=== PATIENT | female | born 1980 | race Caucasian/White ===

== ENCOUNTER → 2017-07-10 | Outpatient (CLI) | payer BC ==
--- NOTE | 2017-07-10 12:30 | CT ---
EXAMINATION TYPE: CT iac w con DATE OF EXAM: 07/10/2017 COMPARISON: NONE HISTORY: Rt ear fullness CT DLP: 229 mGycm Automated exposure control for dose reduction was used. CONTRAST: CT scan of the IACs is performed with IV Contrast, patient injected with 100 mL of Isovue 300. FINDINGS: The external auditory canals are patent bilaterally. Mastoid air cells show no evidence of abnormal opacification bilaterally. The middle ear ossicles are symmetric and unremarkable. There is no evidence of suspicious surrounding soft tissue density to suggest cholesteatoma. The scutum is preserved bilaterally. The cochlea and the semicircular canals are symmetric and unremarkable. Ves tibular aqueduct and internal carotid canal appear unremarkable. Temporomandibular joints are mainta ined bilaterally. IMPRESSION: No significant abnormality seen to account for patient's symptoms.
== END | disposition home or self-care (01) ==
LOC: RADCTMAIN 10:55
PROVIDERS: ATTEND Otolaryngology
DX: H93.11 Tinnitus, right ear (principal); H92.01 Otalgia, right ear
CPT/HCPCS: 70481; Q9967

== ENCOUNTER → 2018-08-02 | Outpatient (CLI) | payer BC ==
--- NOTE | 2018-08-02 14:09 | MM ---
Reason for exam: screening (asymptomatic). Baseline mammogram. History: Patient is nulliparous. Taking hormonal contraceptives for 21 years beginning at age 17. Physical Findings: Nurse did not find any significant physical abnormalities on exam. MG 3D Screening Mammo W/Cad Bilateral CC and MLO view(s) were taken. The breast tissue is heterogeneously dense. This may lower the sensitivity of mammography. There is no discrete abnormality. These results were verbally communicated with the patient and result sheet given to the patient on 08/02/18. ASSESSMENT: Negative, BI-RAD 1 RECOMMENDATION: Routine screening mammogram of both breasts at age 42.
== END | disposition home or self-care (01) ==
LOC: RADMAMWWP 12:58
PROVIDERS: ATTEND Obstetrics & Gynecology
DX: Z12.31 Encounter for screening mammogram for malignant neoplasm of breast (principal)
CPT/HCPCS: 77063; 77067

== ENCOUNTER → 2018-10-21 | Outpatient (CLI) | payer BC | END | disposition home or self-care (01) | LOC: LABWHC1 07:06 | PROVIDERS: ATTEND Nurse Practitioner Family | DX: J30.89 Other allergic rhinitis (principal) | CPT/HCPCS: 36415 ==

== ENCOUNTER 2020-01-08 11:50 | Day surgery (SDC) | payer BC ==
[2020-01-06 15:18] VITALS: BMI 24.2
[~2020-01-08 11:50] MED LIST: LACTATED RINGERS 1,000 ML IV SCH; LIDOCAINE 1% (10MG/ML) FOR IV START INTRADERMA PRN
[2020-01-08 12:59] VITALS: TEMP 98.7
[2020-01-08] MEDS ORDERED: ONDANSETRON 4 MG/2 ML VIAL IVP ONE ×2 (13:05)
[2020-01-08] MEDS ORDERED: ONDANSETRON 4 MG/2 ML VIAL ONE (13:08)
[2020-01-08] MEDS ORDERED: LIDOCAINE 1% INJ 10MG/ML (20 ML MDV) ONE (13:23)
[2020-01-08] MEDS ORDERED: PROPOFOL 10 MG/ML 20 ML VIAL IV ONE (13:23)
--- NOTE | 2020-01-08 14:05 | P.PCN ---
Date of Procedure: 01/08/20 Description of Procedure: BRIEF HISTORY: Patient is a 39-year-old female presenting for outpatient colonoscopy for evaluation of diarrhea and altered bowel function. The patient was seen in the GI clinic where she was complaining of diarrhea over the past 1 year. She reported progressive symptoms. She does have over 5 bowel movements per day. She reported associated abdominal cramping. PROCEDURE PERFORMED: Colonoscopy with biopsy. PREOPERATIVE DIAGNOSIS: Diarrhea, change in bowel habits. ESTIMATED BLOOD LOSS: Minimal. IV sedation per Anesthesia. PROCEDURE: After informed consent was obtained, the patient, was brought into the endoscopy unit. IV sedation was administered by Anesthesia under continuous monitoring. Digital rectal examination was normal. Initially the Olympus CF-190 flexible video colonoscope was then inserted in the rectum, gradually advanced into the cecum without any difficulty. Careful examination was performed as the scope was gradually being withdrawn. Ileocecal valve and the appendiceal orifice were visualized and appeared normal. Prep was excellent. Mucosa of the cecum, ascending colon, transverse colon, descending colon, sigmoid colon, and rectum appeared normal. The terminal ileum was intubated and appeared normal with biopsies taken. Biopsies were also taken of the right and left colon in the setting of altered bowel function Retroflexion was performed in the rectum and no lesions were seen, low-grade internal hemorrhoids seen. The patient tolerated the procedure well. IMPRESSION: Normal-appearing colon from rectum to cecum and normal-appearing terminal ileum with random biopsies taken of the right colon, left colon and terminal ileum given diarrhea and altered bowel function. Internal hemorrhoids.. RECOMMENDATIONS: Findings of this examination were discussed with the patient and her family. Okay to resume diet. Okay to resume medications. Follow-up in GI clinic in 1-2 weeks for results of biopsies.
[2020-01-08 14:40] VITALS: BP 101/71; PULSE 77; RESP 18
== END 2020-01-08 14:43 | disposition home or self-care (01) ==
LOC: ORWHC2ENDO 11:50
PROVIDERS: ATTEND Internal Medicine
DX: K52.89 Other specified noninfective gastroenteritis and colitis (principal); K64.8 Other hemorrhoids; Z79.899 Other long term (current) drug therapy; J45.909 Unspecified asthma, uncomplicated
CPT/HCPCS: 81025; 88305; 45380; J2405; J2001; J2704

== ENCOUNTER → 2020-01-19 | Outpatient (CLI) | payer BC ==
[2020-01-19 09:22] LABS: Basophils # (A) 0.1 k/uL (0-0.2); Basophils % (A) 1 %; Eosinophils # (A) 0.1 k/uL (0-0.7); Eosinophils % (A) 1 %; HCT 38.3 % (34.0-46.0); HGB 12.8 gm/dL (11.4-16.0); Lymphocytes # (A) 2.5 k/uL (1.0-4.8); Lymphocytes % (A) 25 %; MCH 29.7 pg (25.0-35.0); MCHC 33.3 g/dL (31.0-37.0); MCV 88.9 fL (80.0-100.0); Mean Platelet Volume 6.9; Monocytes # (A) 0.4 k/uL (0-1.0); Monocytes % (A) 4 %; Neutrophils # (A) 6.7 k/uL (1.3-7.7); Neutrophils % (A) 68 %; Platelet Count 388 k/uL (150-450); RBC 4.31 m/uL (3.80-5.40); RDW 12.4 % (11.5-15.5); WBC 9.8 k/uL (3.8-10.6)
[2020-01-19 15:17] LABS: ALT 25 U/L (8-44); AST 19 U/L (13-35); African American GFR (CKD) 109.2 (60.0-200.0); Albumin/Globulin Ratio 1.72 (1.60-3.17); Alkaline Phosphatase 84 U/L (41-126); C Reactive Protein <0.4 mg/dL (0.0-0.8); Calcium 9.5 mg/dL (8.7-10.3); Carbon Dioxide 26.4 mmol/L (21.6-31.8); Chloride 102 mmol/L (96-109); Globulin 2.5 g/dL (1.6-3.3); Glucose 83 mg/dL (70-110); Non-African American GFR(CKD) 94.2 (60.0-200.0); Potassium 4.1 mmol/L (3.5-5.5); Sodium 138 mmol/L (135-145); Total Bilirubin 0.3 mg/dL (0.3-1.2); Total Protein 6.8 g/dL (6.2-8.2)
[2020-01-19 16:34] LABS: Erythrocyte Sedimentation Rate 24 mm/Hr (0-20)
[2020-01-20 17:40] LABS: Gliadin AB IgA, Deaminated NEGATIVE (NEGATIVE); Gliadin AB IgA, Unit 0.3 U/mL; Gliadin AB IgG, Deaminated NEGATIVE (NEGATIVE)
== END | disposition home or self-care (01) ==
LOC: LABWHC1 07:15
PROVIDERS: ATTEND Internal Medicine
DX: R19.7 Diarrhea, unspecified (principal)
CPT/HCPCS: 36415; 80053; 83516; 85025; 85652; 86140

== ENCOUNTER 2021-09-25 18:34 | Inpatient (IN) | payer BC ==
--- NOTE | 2021-09-25 20:09 | XR ---
EXAMINATION TYPE: XR KUB DATE OF EXAM: 09/25/2021 COMPARISON: NONE HISTORY: Abdominal pain TECHNIQUE: 2 views upright FINDINGS: Bowel gas pattern is normal. No sign of intestinal obstruction or pneumoperitoneum. Fecal p attern is normal. Lung bases are clear. No pathologic calcifications over the kidneys. IMPRESSION: Nonacute abdomen.
[2021-09-25 20:16] LABS: Appearance,Urine Cloudy (Clear); Bacteria,Urine Many /hpf; Bilirubin,Urine Negative (Negative); Blood,Urine Moderate (Negative); Color,Urine Yellow; Glucose,Urine (UA) Negative (Negative); Ketones,Urine 4+ (Negative); Leukocyte Esterase,Urine Negative (Negative); Mucus,Urine Rare /hpf; Nitrite,Urine Negative (Negative); PH, Urine 5.5 (5.0-8.0); Protein,Urine Negative (Negative); RBC,Urine 7 /hpf (0-5); Specific Gravity,Urine 1.009 (1.001-1.035); Squamous Epithelial Cell,Urine 5 /hpf (0-4); Urobilinogen,Urine <2.0 mg/dL (<2.0); WBC,Urine 2 /hpf (0-5)
[2021-09-25] MEDS ORDERED: SODIUM CHLORIDE 0.9% 1,000 ML IV STA (20:35)
--- NOTE | 2021-09-25 20:36 | ED ---
General Adult HPI - General Chief complaint: Abdominal Pain Stated complaint: Abd pain Time Seen by Provider: 09/25/21 20:34 Source: patient Mode of arrival: ambulatory Limitations: no limitations - History of Present Illness Initial comments: Patient presents to the ED with her mother for evaluation. Patient states that she has had watery diarrhea for the past 3 days and diffuse, crampy lower abdominal pain for the past 2 days. Patient states that her diarrhea has improved this evening, but she continues to have lower abdominal pain. Patient states that she was recently on 2 courses of antibiotics (Augmentin and cefuroxime). Patient denies known sick contact or recent travel abroad. Patient denies trauma or injury, fever or chills, headache, chest pain or pressure, dyspnea, cough or cold symptoms, palpitations, dizziness, upper abdominal pain, back or flank pain, nausea or vomiting, bloody or melanotic stool, dysuria/hematuria/urinary frequency/urinary symptoms, vaginal bleeding or discharge, or any other symptoms or complaints. Patient states that her LMP was 2 weeks ago. - Related Data Home Medications Medication Instructions Recorded Confirmed Control (Unknown Dose) 1 tab PO HS 01/06/20 01/06/20 Budesonide [Pulmicort Flexhaler] 2 puff INHALATION BID 01/06/20 01/06/20 Dicyclomine [Bentyl] 10 mg PO TID 01/06/20 01/06/20 Montelukast [Singulair] 10 mg PO HS 01/06/20 01/06/20 Allergies Allergy/AdvReac Type Severity Reaction Status Date / Time No Known Allergies Allergy Verified 09/25/21 19:38 Review of Systems ROS Statement: Those systems with pertinent positive or pertinent negative responses have been documented in the HPI. ROS Other: All systems not noted in ROS Statement are negative. Past Medical History Past Medical History: Asthma Additional Past Medical History / Comment(s): problems with diarrhea History of Any Multi-Drug Resistant Organisms: None Reported Additional Past Surgical History / Comment(s): Lasik, wisdom teeth Past Anesthesia/Blood Transfusion Reactions: No Reported Reaction Past Psychological History: No Psychological Hx Reported Smoking Status: Never smoker Past Alcohol Use History: None Reported Past Drug Use History: None Reported - Past Family History Mother Family Medical History: No Reported History Father Family Medical History: Cancer Additional Family Medical History / Comment(s): Kidney, Prostate General Exam Limitations: no limitations General appearance: alert, in no apparent distress Head exam: Present: atraumatic, normocephalic Eye exam: Present: normal appearance, EOMI ENT exam: Present: mucous membranes moist Respiratory exam: Present: normal lung sounds bilaterally. Absent: respiratory distress, wheezes, rales, rhonchi, stridor Cardiovascular Exam: Present: normal rhythm, tachycardia, normal heart sounds, other (Normal radial pulses bilaterally) GI/Abdominal exam: Present: soft, hyperactive bowel sounds, other (Moderate diffuse lower abdominal tenderness). Absent: distended, guarding, rebound Back exam: Absent: CVA tenderness (R), CVA tenderness (L) Neurological exam: Present: alert, oriented X3. Absent: motor sensory deficit Psychiatric exam: Present: normal affect, normal mood Skin exam: Present: warm, dry, intact, normal color Course Vital Signs 09/25/21 09/25/21 09/25/21 19:36 22:34 22:39 Temperature 98.2 F Pulse Rate 111 H 115 H 99 Respiratory 20 20 Rate Blood Pressure 121/67 120/69 O2 Sat by Pulse 99 95 Oximetry - Reevaluation(s) Reevaluation #1: 09/26/21 00:22 Case, H&P and test results/CT findings were discussed with Dr. Stone (general surgery). He recommends hospital admission and IV antibiotic treatment for possible acute appendicitis. He states that he will examine/evaluate the patient in the morning. He has no further recommendations at this time. 09/26/21 00:33 Patient states that her pain/symptoms have improved somewhat with ED treatment. Patient denies development of any new symptoms while in the ED. Patient's abdomen remains soft and without rebound or guarding on examination. Patient has not been able to provide a stool specimen thus far. Patient and mother are aware the patient's test results and my discussion with Dr. Stone as above. Patient agrees with hospital admission at this time. Medical Decision Making - Medical Decision Making Patient reports having diarrhea and diffuse, crampy lower abdominal pain for the past couple of days (after completing a couple of courses of antibiotics. I suspect that the patient's symptoms are likely secondary to an infectious diarrhea, but given the patient's leukocytosis and CT findings, will admit the patient to the hospital for IV antibiotic treatment and surgical consultation out of concern for possible acute appendicitis. Dr. Stone was contacted/consulted from the ED, and he has accepted hospital admission. - Lab Data Result diagrams: 09/25/21 22:23 09/25/21 22:23 Lab Results 09/25/21 09/25/21 09/25/21 Range/Units 19:58 22:23 22:23 WBC 17.1 H (3.8-10.6) k/uL RBC 4.26 (3.80-5.40) m/uL Hgb 12.7 (11.4-16.0) gm/dL Hct 37.1 (34.0-46.0) % MCV 87.1 (80.0-100.0) fL MCH 29.8 (25.0-35.0) pg MCHC 34.3 (31.0-37.0) g/dL RDW 11.9 (11.5-15.5) % Plt Count 389 (150-450) k/uL MPV 7.0 Neutrophils % 88 % Lymphocytes % 6 % Monocytes % 4 % Eosinophils % 1 % Basophils % 0 % Neutrophils # 15.0 H (1.3-7.7) k/uL Lymphocytes # 1.1 (1.0-4.8) k/uL Monocytes # 0.7 (0-1.0) k/uL Eosinophils # 0.1 (0-0.7) k/uL Basophils # 0.1 (0-0.2) k/uL Sodium 129 L (137-145) mmol/L Potassium 3.5 (3.5-5.1) mmol/L Chloride 95 L (98-107) mmol/L Carbon Dioxide 20 L (22-30) mmol/L Anion Gap 14 mmol/L BUN 4 L (7-17) mg/dL Creatinine 0.72 (0.52-1.04) mg/dL Est GFR (CKD-EPI)AfAm >90 (>60 ml/min/1.73 sqM) Est GFR (CKD-EPI)NonAf >90 (>60 ml/min/1.73 sqM) Glucose 99 (74-99) mg/dL Calcium 8.9 (8.4-10.2) mg/dL Total Bilirubin 0.9 (0.2-1.3) mg/dL AST 30 (14-36) U/L ALT 25 (4-34) U/L Alkaline Phosphatase 109 (38-126) U/L Total Protein 7.6 (6.3-8.2) g/dL Albumin 4.6 (3.5-5.0) g/dL Lipase 20 L (23-300) U/L HCG, Qual Not Detected Urine Color Yellow Urine Appearance Cloudy H (Clear) Urine pH 5.5 (5.0-8.0) Ur Specific [place] 1.009 (1.001-1.035) Urine Protein Negative (Negative) Urine Glucose (UA) Negative (Negative) Urine Ketones 4+ H (Negative) Urine Blood Moderate H (Negative) Urine Nitrite Negative (Negative) Urine Bilirubin Negative (Negative) Urine Urobilinogen <2.0 (<2.0) mg/dL Ur Leukocyte Esterase Negative (Negative) Urine RBC 7 H (0-5) /hpf Urine WBC 2 (0-5) /hpf Ur Squamous Epith Cells 5 H (0-4) /hpf Urine Bacteria Many H (None) /hpf Urine Mucus Rare H (None) /hpf - Radiology Data KUB: Nonacute abdomen. CT abdomen/pelvis with IV contrast: There is appendicolith. Tip of the appendix is slightly thickened. No significant inflammatory reaction in the adjacent fat. Mild appendicitis however not excluded. Disposition Clinical Impression: Abdominal pain, Diarrhea Narrative: possible acute appendicitis Disposition: ADMITTED IP TO THIS HOSP Condition: Stable Is patient prescribed a controlled substance at d/c from ED?: No Referrals: Mo Encarnacion MD [Primary Care Provider] - 1-2 days Time of Disposition: 00:27
[2021-09-25] MEDS ORDERED: MORPHINE SULFATE 4 MG/ML SYRINGE IVP STA (21:23)
[2021-09-25] MEDS ORDERED: ONDANSETRON 4 MG/2 ML VIAL IVP STA (22:37)
[2021-09-25 22:41] LABS: Basophils # (A) 0.1 k/uL (0-0.2); Basophils % (A) 0 %; Eosinophils # (A) 0.1 k/uL (0-0.7); Eosinophils % (A) 1 %; HCT 37.1 % (34.0-46.0); HGB 12.7 gm/dL (11.4-16.0); Lymphocytes # (A) 1.1 k/uL (1.0-4.8); Lymphocytes % (A) 6 %; MCH 29.8 pg (25.0-35.0); MCHC 34.3 g/dL (31.0-37.0); MCV 87.1 fL (80.0-100.0); Monocytes # (A) 0.7 k/uL (0-1.0); Monocytes % (A) 4 %; Neutrophils % (A) 88 %; Platelet Count 389 k/uL (150-450); RBC 4.26 m/uL (3.80-5.40); RDW 11.9 % (11.5-15.5); WBC 17.1 k/uL (3.8-10.6)
[2021-09-25 22:58] LABS: ALT 25 U/L (4-34); AST 30 U/L (14-36); African American GFR (CKD) >90 (>60 ml/min/1.73 sqM); Albumin 4.6 g/dL (3.5-5.0); Alkaline Phosphatase 109 U/L (38-126); Anion Gap 14 mmol/L; Blood Urea Nitrogen 4 mg/dL (7-17); Calcium 8.9 mg/dL (8.4-10.2); Carbon Dioxide 20 mmol/L (22-30); Chloride 95 mmol/L (98-107); Glucose 99 mg/dL (74-99); Lipase 20 U/L (23-300); Non-African American GFR(CKD) >90 (>60 ml/min/1.73 sqM); Potassium 3.5 mmol/L (3.5-5.1); Sodium 129 mmol/L (137-145); Total Bilirubin 0.9 mg/dL (0.2-1.3); Total Protein 7.6 g/dL (6.3-8.2)
[2021-09-25 23:12] LABS: HCG,Qualitative Serum Not Detected
--- NOTE | 2021-09-26 00:04 | CT ---
EXAMINATION TYPE: CT abdomen pelvis w con DATE OF EXAM: 09/25/2021 COMPARISON: None HISTORY: LOWER ABD PAIN & DIARRHEA X [address] DLP: mGycm Automated exposure control for dose reduction was used. CONTRAST: Performed with IV Contrast, patient injected with 100 mL of Isovue 300. Images obtained from the diaphragm to the floor of the pelvis with IV contrast. Lung bases are clear. No pleural effusion. Heart size is normal. No pericardial effusion. Liver spleen and stomach pancreas and gallbladder appear intact. The bile ducts are not dilated. There is no adrenal mass. Kidneys show satisfactory contrast opacification. There is no hydronephrosi s. Ureters are not dilated. Bladder distends smoothly. No retroperitoneal adenopathy. There is no mesenteric edema. No ascites or free air. No sign of a bowel obstruction. Appendix is pos terior. There appears to be appendicolith at the tip of the appendix. This measures 7 mm. There is sl ight thickening at the tip of the appendix. The lumbar vertebra appear intact. No compression fracture. Posterior elements are intact. Bony pelvi s is intact. Uterus is retroverted. There is no ascites. No free air. No bowel obstruction. Sacroiliac joints are intact. IMPRESSION: There is appendicolith. Tip of the appendix is slightly thickened. No significant inflammatory reacti on in the adjacent fat. Mild appendicitis however not excluded.
[2021-09-26] MEDS ORDERED: PIPERACILLIN-TAZOBACTAM 3.375 GM in SODIUM CHLORIDE 0.9% 100 ML IVPB STA ×2 (00:25→00:55)
[2021-09-26] MEDS ORDERED: NALOXONE 0.4 MG/ML 1 ML VIAL IV PRN (00:28)
[2021-09-26] MEDS ORDERED: PIPERACILLIN-TAZOBACTAM 3.375 GM in SODIUM CHLORIDE 0.9% 100 ML IVPB ONE (01:04)
[2021-09-26] MEDS: SODIUM CHLORIDE 0.9% 1,000 ML IV SCH ×3 (01:23→20:18)
[2021-09-26] MEDS: HYDROmorphone 0.5 MG/0.5 ML SYRINGE IVP PRN ×4 (02:04→20:18)
[2021-09-26] MEDS ORDERED: PIPERACILLIN-TAZOBACTAM 3.375 GM in SODIUM CHLORIDE 0.9% 100 ML IVPB SCH (08:45)
[2021-09-26 09:20] LABS: Basophils # (A) 0.1 k/uL (0-0.2); Basophils % (A) 0 %; Eosinophils % (A) 0 %; HCT 34.4 % (34.0-46.0); HGB 11.7 gm/dL (11.4-16.0); Lymphocytes % (A) 6 %; MCH 29.8 pg (25.0-35.0); MCHC 33.9 g/dL (31.0-37.0); MCV 87.8 fL (80.0-100.0); Monocytes # (A) 0.7 k/uL (0-1.0); Monocytes % (A) 4 %; Neutrophils # (A) 14.9 k/uL (1.3-7.7); Neutrophils % (A) 89 %; Platelet Count 360 k/uL (150-450); RBC 3.92 m/uL (3.80-5.40); RDW 12.1 % (11.5-15.5); WBC 16.7 k/uL (3.8-10.6)
[2021-09-26 09:29] LABS: African American GFR (CKD) >90 (>60 ml/min/1.73 sqM); Anion Gap 9 mmol/L; Blood Urea Nitrogen 4 mg/dL (7-17); Carbon Dioxide 21 mmol/L (22-30); Chloride 103 mmol/L (98-107); Glucose 95 mg/dL (74-99); Non-African American GFR(CKD) >90 (>60 ml/min/1.73 sqM); Potassium 3.4 mmol/L (3.5-5.1); Sodium 133 mmol/L (137-145)
[2021-09-26] MEDS ORDERED: SODIUM CHLORIDE 0.9% 2,000 ML IV ONE (09:51)
[2021-09-26] MEDS: PANTOPRAZOLE 40 MG/10 ML VIAL IVP SCH (10:33)
--- NOTE | 2021-09-26 12:38 | P.GSHP ---
History of Present Illness H&P Date: 09/26/21 CHIEF COMPLAINT: Abdominal pain HISTORY OF PRESENT ILLNESS: This is a 41-year-old female who presents to the hospital with complaints of abdominal pain. She also reports diarrhea for about 3 days after taking antibiotics for an ear infection. She describes her abdominal pain as crampy across the lower abdomen both right and left lower quadrant. She also has been bloated. She did rate her pain 7 out of 10 on admission and is now down to 4 out of 10. She's been complaining of nausea and reflux-like symptoms. She's had no further diarrhea since yesterday around 4:30. She did report some low-grade temps on Sunday and she has been having chills and sweats. Which she'll was elevated at 17. She also had a low sodium of 129. Computed tomography scan of abdomen and pelvis shows that there is appendicolith. Tip of the appendix is slightly thickened. No significant inflammatory reaction in the adjacent fat. Mild appendicitis however is not excluded. Patient denies any cardiac history. Denies any prior surgical history. Patient has been mildly tachycardic and blood pressures on the lower side. Patient seen and examined with Dr. grullon PAST MEDICAL HISTORY: Asthma, GERD PAST SURGICAL HISTORY: See list. MEDICATIONS: See list. ALLERGIES: See list. SOCIAL HISTORY: No illicit drug use. REVIEW OF SYSTEMS: CONSTITUTIONAL: Denies fever or chills. HEENT: Denies blurred vision, vision changes, or eye pain. Denies hemoptysis CARDIOVASCULAR: Denies chest pain or pressure. RESPIRATORY: No shortness of breath. GASTROINTESTINAL: See HPI for pertinent findings HEMATOLOGIC: Denies bleeding disorders. GENITOURINARY: Denies any blood in urine or increased urinary frequency. SKIN: Denies pruitis. Denies rash. PHYSICAL EXAM: VITAL SIGNS: Reviewed GENERAL: Well-developed in no acute distress. HEENT: No sclera icterus. Extraocular movements grossly intact. Moist buccal mucosa. Head is atraumatic, normocephalic. No nasal drainage. ABDOMEN: Soft. Nondistended. Tenderness to palpation of the right and left lower quadrant NEUROLOGIC: Alert and oriented. Cranial nerves II through XII grossly intact. LABORATORY DATA: WBC 17.1 down to 16.7 Hgb 11.7 platelets to be 60 sodium 129 up to 133 potassium 3.4 creatinine 0.76 LFTs normal lipase 20 Urine hCG not detected IMAGING: Computed tomography scan results as stated above ASSESSMENT: 1. Bilateral lower quadrant abdominal pain with diarrhea. Computed tomography scan results had shown appendicolith and tip of the appendix is slightly thickened 2. Hyponatremia 3. Dehydration PLAN: -Patient will be scheduled tentatively for a laparoscopic appendectomy tomorrow, 09/27/[address]ullon -Start clear liquid diet -Keep patient nothing by mouth after midnight -2 L fluid bolus ordered due to dehydration -Increase IV fluids to 125 mL per hour -Continue IV antibiotics -Add PPI for acid reflux symptoms -Continue pain medication as needed -Continue antiemetics as needed -Stool for C. diff not collected. Patient's diarrhea has stopped -Consult medicine service for medical management -Check prophylaxis Protonix and DVT prophylaxis subcu Physician Anglesmith Helper note has been reviewed by physician. Signing provider agrees with the documented findings, assessment, and plan of care. Past Medical History Past Medical History: Asthma Additional Past Medical History / Comment(s): problems with diarrhea History of Any Multi-Drug Resistant Organisms: None Reported Additional Past Surgical History / Comment(s): Lasik, wisdom teeth Past Anesthesia/Blood Transfusion Reactions: No Reported Reaction Past Psychological History: No Psychological Hx Reported Smoking Status: Never smoker Past Alcohol Use History: None Reported Past Drug Use History: None Reported - Past Family History Mother Family Medical History: No Reported History Father Family Medical History: Cancer Additional Family Medical History / Comment(s): Kidney, Prostate Medications and Allergies Home Medications Medication Instructions Recorded Confirmed Type Albuterol Inhaler [Ventolin Hfa 2 puff INHALATION RT-Q4H PRN 09/26/21 09/26/21 History Inhaler] Famotidine [Pepcid] 20 mg PO BID 09/26/21 09/26/21 History Fluconazole [Diflucan] 150 mg PO TH 09/26/21 09/26/21 History Lactobacillus Acidophilus 2 cap PO DAILY 09/26/21 09/26/21 History [Florajen Acidophilus] Multivitamins, Thera [Multivitamin 1 tab PO DAILY 09/26/21 09/26/21 History (formulary)] [id number] 1 tab PO DAILY 09/26/21 09/26/21 History cefUROXime axetiL [Ceftin] 500 mg PO DIRECTED 09/26/21 09/26/21 History Allergies Allergy/AdvReac Type Severity Reaction Status Date / Time No Known Allergies Allergy Verified 09/26/21 07:33 Surgical - Exam Vital Signs Temp Pulse Resp BP Pulse Ox 98.2 F 111 H 20 121/67 99 09/25/21 19:36 09/25/21 19:36 09/25/21 19:36 09/25/21 19:36 09/25/21 19:36 Results - Labs 09/26/21 09:03 09/26/21 09:03 Abnormal Lab Results - Last 24 Hours (Table) 09/25/21 09/25/21 09/25/21 Range/Units 19:58 22:23 22:23 WBC 17.1 H (3.8-10.6) k/uL Neutrophils # 15.0 H (1.3-7.7) k/uL Sodium 129 L (137-145) mmol/L Potassium (3.5-5.1) mmol/L Chloride 95 L (98-107) mmol/L Carbon Dioxide 20 L (22-30) mmol/L BUN 4 L (7-17) mg/dL Plasma Lactic Acid Philip (0.7-2.0) mmol/L Calcium (8.4-10.2) mg/dL Lipase 20 L (23-300) U/L Urine Appearance Cloudy H (Clear) Urine Ketones 4+ H (Negative) Urine Blood Moderate H (Negative) Urine RBC 7 H (0-5) /hpf Ur Squamous Epith Cells 5 H (0-4) /hpf Urine Bacteria Many H (None) /hpf Urine Mucus Rare H (None) /hpf 09/26/21 09/26/21 09/26/21 Range/Units 09:03 09:03 09:03 WBC 16.7 H (3.8-10.6) k/uL Neutrophils # 14.9 H (1.3-7.7) k/uL Sodium 133 L (137-145) mmol/L Potassium 3.4 L (3.5-5.1) mmol/L Chloride (98-107) mmol/L Carbon Dioxide 21 L (22-30) mmol/L BUN 4 L (7-17) mg/dL Plasma Lactic Acid Philip 0.6 L (0.7-2.0) mmol/L Calcium 8.0 L (8.4-10.2) mg/dL Lipase (23-300) U/L Urine Appearance (Clear) Urine Ketones (Negative) Urine Blood (Negative) Urine RBC (0-5) /hpf Ur Squamous Epith Cells (0-4) /hpf Urine Bacteria (None) /hpf Urine Mucus (None) /hpf Diabetes panel 09/25/21 09/26/21 Range/Units 22:23 09:03 Sodium 129 L 133 L (137-145) mmol/L Potassium 3.5 3.4 L (3.5-5.1) mmol/L Chloride 95 L 103 (98-107) mmol/L Carbon Dioxide 20 L 21 L (22-30) mmol/L BUN 4 L 4 L (7-17) mg/dL Creatinine 0.72 0.76 (0.52-1.04) mg/dL Glucose 99 95 (74-99) mg/dL Calcium 8.9 8.0 L (8.4-10.2) mg/dL AST 30 (14-36) U/L ALT 25 (4-34) U/L Alkaline Phosphatase 109 (38-126) U/L Total Protein 7.6 (6.3-8.2) g/dL Albumin 4.6 (3.5-5.0) g/dL Calcium panel 09/25/21 09/26/21 Range/Units 22:23 09:03 Calcium 8.9 8.0 L (8.4-10.2) mg/dL Albumin 4.6 (3.5-5.0) g/dL Pituitary panel 09/25/21 09/26/21 Range/Units 22:23 09:03 Sodium 129 L 133 L (137-145) mmol/L Potassium 3.5 3.4 L (3.5-5.1) mmol/L Chloride 95 L 103 (98-107) mmol/L Carbon Dioxide 20 L 21 L (22-30) mmol/L BUN 4 L 4 L (7-17) mg/dL Creatinine 0.72 0.76 (0.52-1.04) mg/dL Glucose 99 95 (74-99) mg/dL Calcium 8.9 8.0 L (8.4-10.2) mg/dL Adrenal panel 09/25/21 09/26/21 Range/Units 22:23 09:03 Sodium 129 L 133 L (137-145) mmol/L Potassium 3.5 3.4 L (3.5-5.1) mmol/L Chloride 95 L 103 (98-107) mmol/L Carbon Dioxide 20 L 21 L (22-30) mmol/L BUN 4 L 4 L (7-17) mg/dL Creatinine 0.72 0.76 (0.52-1.04) mg/dL Glucose 99 95 (74-99) mg/dL Calcium 8.9 8.0 L (8.4-10.2) mg/dL Total Bilirubin 0.9 (0.2-1.3) mg/dL AST 30 (14-36) U/L ALT 25 (4-34) U/L Alkaline Phosphatase 109 (38-126) U/L Total Protein 7.6 (6.3-8.2) g/dL Albumin 4.6 (3.5-5.0) g/dL
[2021-09-26] MEDS: ONDANSETRON 4 MG/2 ML VIAL IVP PRN (12:52)
[2021-09-26] MEDS ORDERED: POTASSIUM CHLORIDE 10 MEQ in WATER FOR INJECTION 1 100ML.BAG IVPB STA (13:29)
[2021-09-26] MEDS ORDERED: Potassium Replacement Protocol 1 EACH MISC MISCELLANE PRN (15:14)
[2021-09-26] MEDS: metroNIDAZOLE-NS PMX 500 MG in SALINE 1 100ML.BAG IVPB SCH ×2 (15:23→22:16)
[2021-09-26] MEDS: POTASSIUM CHLORIDE ER 20 MEQ TAB.ER PO SCH ×2 (15:23→17:10)
--- NOTE | 2021-09-26 15:23 | P.CONS ---
History of Present Illness - Reason for Consult Consult date: 09/26/21 - Chief Complaint abdominal pain - History of Present Illness 41-year-old female who presents with complaints of abdominal pain, in the lower part, nausea/vomiting as well as diarrhea. Diarrhea is more than 20 times in a day. Patient ruptured her ear drum on the right side many years ago and she keeps getting right ear infections. Most recently she was treated with 2 courses of oral antibiotics first was Augmentin and the second with cefuroxime. She just finished a treatment recently. After finishing treatment she started having symptoms of nausea, vomiting and diarrhea as well as abdominal pain. Abdominal pain feels like cramps, across the lower abdomen both right and left lower quadrant. She has been having slight fevers as well as chills and sweats. Her laboratory studies were significant for hypokalemia with potassium 2.4, sodium 129, white count 16.7, she tested positive for Clostridium difficile. She had Computed tomography scan of abdomen and pelvis that showed appe ndicolith. Tip of the appendix is slightly thickened. No significant inflammatory reaction in the adjacent fat. Mild appendicitis however is not excluded. Review of Systems Complete review of system performed, pertinent positives per HPI, otherwise negative Past Medical History Past Medical History: Asthma Additional Past Medical History / Comment(s): problems with diarrhea. Alpha-1 antitrypsin deficiency History of Any Multi-Drug Resistant Organisms: None Reported Additional Past Surgical History / Comment(s): Lasik, wisdom teeth Past Anesthesia/Blood Transfusion Reactions: No Reported Reaction Past Psychological History: No Psychological Hx Reported Smoking Status: Never smoker Past Alcohol Use History: None Reported Past Drug Use History: None Reported - Past Family History Mother Family Medical History: No Reported History Father Family Medical History: Cancer Additional Family Medical History / Comment(s): Kidney, Prostate Medications and Allergies Home Medications Medication Instructions Recorded Confirmed Type Albuterol Inhaler [Ventolin Hfa 2 puff INHALATION RT-Q4H PRN 09/26/21 09/26/21 History Inhaler] Famotidine [Pepcid] 20 mg PO BID 09/26/21 09/26/21 History Fluconazole [Diflucan] 150 mg PO TH 09/26/21 09/26/21 History Lactobacillus Acidophilus 2 cap PO DAILY 09/26/21 09/26/21 History [Florajen Acidophilus] Multivitamins, Thera [Multivitamin 1 tab PO DAILY 09/26/21 09/26/21 History (formulary)] Ypropq-Js-Tr 1 tab PO DAILY 09/26/21 09/26/21 History cefUROXime axetiL [Ceftin] 500 mg PO DIRECTED 09/26/21 09/26/21 History Allergies Allergy/AdvReac Type Severity Reaction Status Date / Time No Known Allergies Allergy Verified 09/26/21 07:33 Physical Exam Vitals: Vital Signs Temp Pulse Pulse Resp BP BP BP 09/26/21 14:12 98 F 99 14 100/66 09/26/21 08:57 12 09/26/21 07:00 98.2 F 92 12 103/62 09/26/21 01:53 98.3 F 103 H 16 104/62 09/25/21 22:39 99 09/25/21 22:34 115 H 20 120/69 09/25/21 19:36 98.2 F 111 H 20 121/67 Pulse Ox 09/26/21 14:12 100 09/26/21 08:57 09/26/21 07:00 96 09/26/21 01:53 98 09/25/21 22:39 09/25/21 22:34 95 09/25/21 19:36 99 Intake and Output 09/26/21 09/26/21 09/26/21 06:59 14:59 22:59 Intake Total 100 118 Output Total 1000 Balance 100 -882 Intake: Intake, IV Titration 100 Amount Piperacillin-Tazobactam 3 100 .375 gm In Sodium Chloride 0.9% 100 ml @ 200 mls/hr IVPB ONCE ONE Rx#:[id number] Oral 118 Output: Emesis 1000 Other: Voiding Method Toilet # Bowel Movements 1 Weight 70.307 kg Constitutional: No acute distress, conversant, pleasant Eyes:Anicteric sclerae, moist conjunctiva, no lid-lag, PERRLA, ENMT: Oropharynx clear, no erythema, exudates Neck: Supple, FROM, no masses, or JVD, No carotid bruits, No thyromegaly Lungs: Clear to auscultation, Clear to percussion, Normal respiratory effort, no accessory muscle use Cardiovascular: Heart regular in rate and rhythm, No murmurs, gallops, or rubs, No peripheral edema Abdominal: Soft, lower abdominal tenderness, no guarding, rebound or rigidity, Normoactive bowel sounds, No hepatomegaly, No splenomegaly, No palpable mass Skin: Normal temperature, tone, texture, turgor, no induration, No subcutaneous nodules, No rash, lesions, No ulcers Extremities: No digital cyanosis, No clubbing, Pedal pulses intact and symmetrical, Radial pulses intact and symmetrical, No calf tenderness Psychiatric: Alert and oriented to person, place and time, appropriate affect, intact judgement Neuro: Muscles Strength 5/5 in all 4 extremities, Sensation to light touch grossly present throughout, Cranial nerves II-XII grossly intact, no focal sensory deficits Results CBC & Chem 7: 09/26/21 09:03 09/26/21 09:03 Labs: Abnormal Lab Results - Last 24 Hours (Table) 09/25/21 09/25/21 09/25/21 Range/Units 19:58 20:35 22:23 WBC 17.1 H (3.8-10.6) k/uL Neutrophils # 15.0 H (1.3-7.7) k/uL Sodium (137-145) mmol/L Potassium (3.5-5.1) mmol/L Chloride (98-107) mmol/L Carbon Dioxide (22-30) mmol/L BUN (7-17) mg/dL Plasma Lactic Acid Philip (0.7-2.0) mmol/L Calcium (8.4-10.2) mg/dL Lipase (23-300) U/L Urine Appearance Cloudy H (Clear) Urine Ketones 4+ H (Negative) Urine Blood Moderate H (Negative) Urine RBC 7 H (0-5) /hpf Ur Squamous Epith Cells 5 H (0-4) /hpf Urine Bacteria Many H (None) /hpf Urine Mucus Rare H (None) /hpf C. difficile (EIA) Intrp Positive A (Negative) 09/25/21 09/26/21 09/26/21 Range/Units 22:23 09:03 09:03 WBC 16.7 H (3.8-10.6) k/uL Neutrophils # 14.9 H (1.3-7.7) k/uL Sodium 129 L 133 L (137-145) mmol/L Potassium 3.4 L (3.5-5.1) mmol/L Chloride 95 L (98-107) mmol/L Carbon Dioxide 20 L 21 L (22-30) mmol/L BUN 4 L 4 L (7-17) mg/dL Plasma Lactic Acid Philip (0.7-2.0) mmol/L Calcium 8.0 L (8.4-10.2) mg/dL Lipase 20 L (23-300) U/L Urine Appearance (Clear) Urine Ketones (Negative) Urine Blood (Negative) Urine RBC (0-5) /hpf Ur Squamous Epith Cells (0-4) /hpf Urine Bacteria (None) /hpf Urine Mucus (None) /hpf C. difficile (EIA) Intrp (Negative) 09/26/21 Range/Units 09:03 WBC (3.8-10.6) k/uL Neutrophils # (1.3-7.7) k/uL Sodium (137-145) mmol/L Potassium (3.5-5.1) mmol/L Chloride (98-107) mmol/L Carbon Dioxide (22-30) mmol/L BUN (7-17) mg/dL Plasma Lactic Acid Philip 0.6 L (0.7-2.0) mmol/L Calcium (8.4-10.2) mg/dL Lipase (23-300) U/L Urine Appearance (Clear) Urine Ketones (Negative) Urine Blood (Negative) Urine RBC (0-5) /hpf Ur Squamous Epith Cells (0-4) /hpf Urine Bacteria (None) /hpf Urine Mucus (None) /hpf C. difficile (EIA) Intrp (Negative) Assessment and Plan Plan: Acute C. diff colitis Start vancomycin by mouth and Flagyl IV IV fluids Symptomatic treatment with Zofran and pain medications Contact isolation Hyponatremia Due to dehydration likely secondary to diarrhea and vomiting IV fluids as above Follow Hypokalemia Replace Follow in a.m. Chronic Asthma history Alpha-1 antitrypsin deficiency Stable Resume meds DVT prophylaxis She is low risk, ambulatory
[2021-09-26] MEDS: VANCOMYCIN 125 MG CAPSULE PO SCH ×2 (17:10→22:16)
[2021-09-26] MEDS: HEPARIN SODIUM,PORCINE/PF 5,000 UNIT/0.5 ML SYRINGE SQ SCH (20:18)
[2021-09-27] MEDS: HYDROmorphone 0.5 MG/0.5 ML SYRINGE IVP PRN ×6 (00:54→23:01)
[2021-09-27] MEDS: SODIUM CHLORIDE 0.9% 1,000 ML IV SCH ×3 (05:02→20:04)
[2021-09-27] MEDS: ONDANSETRON 4 MG/2 ML VIAL IVP PRN ×3 (05:14→20:04)
[2021-09-27] MEDS: metroNIDAZOLE-NS PMX 500 MG in SALINE 1 100ML.BAG IVPB SCH ×3 (07:27→22:02)
[2021-09-27] MEDS: HEPARIN SODIUM,PORCINE/PF 5,000 UNIT/0.5 ML SYRINGE SQ SCH ×2 (07:27→20:04)
[2021-09-27] MEDS: PANTOPRAZOLE 40 MG/10 ML VIAL IVP SCH (07:28)
[2021-09-27 09:17] LABS: Basophils # (A) 0.04 X 10*3/uL (0.00-0.10); Basophils % (A) 0.2 %; Eosinophils # (A) 0.06 X 10*3/uL (0.04-0.35); Eosinophils % (A) 0.3 %; HCT 32.3 % (37.2-46.3); HGB 10.3 g/dL (12.0-15.0); Immature Grans, Automated 0.6 %; Lymphocytes # (A) 1.49 X 10*3/uL (0.90-5.00); Lymphocytes % (A) 8.7 %; MCH 28.5 pg (27.0-32.0); MCHC 31.9 g/dL (32.0-37.0); MCV 89.2 fL (80.0-97.0); Mean Platelet Volume 9.6 fL (9.5-12.2); Monocytes # (A) 1.44 X 10*3/uL (0.20-1.00); Monocytes % (A) 8.4 %; NRBC Per 100 WBC 0 /100 WBCS (0.0-0.0); Neutrophils # (A) 14.02 X 10*3/uL (1.80-7.70); Neutrophils % (A) 81.8 %; Platelet Count 340 X 10*3/uL (140-440); RBC 3.62 X 10*6/uL (4.10-5.20); RDW 12.6 % (11.5-14.5); WBC 17.16 X 10*3/uL (4.50-10.00)
[2021-09-27 09:34] LABS: African American GFR (CKD) 133.1 (60.0-200.0); Albumin 3.4 g/dL (3.8-4.9); Albumin/Globulin Ratio 1.55 (1.60-3.17); Anion Gap 12.1 mmol/L (10.00-18.00); BUN/Creat Ratio 3.5 Ratio (12.00-20.00); Blood Urea Nitrogen 2.1 mg/dL (9.0-27.0); Calcium 7.7 mg/dL (8.7-10.3); Carbon Dioxide 17.9 mmol/L (20.0-27.5); Globulin 2.2 g/dL (1.6-3.3); Non-African American GFR(CKD) 114.8 (60.0-200.0); Potassium 3.5 mmol/L (3.5-5.5); Total Bilirubin 0.3 mg/dL (0.30-1.20); Total Protein 5.6 g/dL (6.2-8.2)
[2021-09-27] MEDS: VANCOMYCIN 125 MG CAPSULE PO SCH ×4 (10:56→22:03)
[2021-09-27] MEDS ORDERED: POTASSIUM CHLORIDE ER 20 MEQ TAB.ER PO STA (11:02)
--- NOTE | 2021-09-27 11:53 | P.PN ---
Subjective Progress Note Date: 09/27/21 CHIEF COMPLAINT: Abdominal pain and diarrhea HISTORY OF PRESENT ILLNESS: Patient with evidence of C. diff colitis. She's currently on IV Flagyl and oral vancomycin. Patient reports no improvement in her symptoms. Patient reports that she still having the similar abdominal pain. She still having a lot of diarrhea. She did have an episode of vomiting. Reports feeling dizzy. Afebrile. WBC is up from 16.7-17.16 1110.3 sodium 134 potassium 3.5 creatinine 0.6 Patient seen and examined with Dr. Stone PHYSICAL EXAM: VITAL SIGNS: Reviewed. GENERAL: Well-developed in no acute distress. HEENT: No sclera icterus. Extraocular movements grossly intact. Moist buccal mucosa. Head is atraumatic, normocephalic. ABDOMEN: Soft. Mildly distended. Chest palpation of the lower abdomen NEUROLOGIC: Alert and oriented. Cranial nerves II through XII grossly intact. ASSESSMENT: 1. C. diff colitis 2. Computed tomography scan had shown appendicolith and tip of the appendix is slightly thickened. Doubt appendicitis. Patient's symptoms are due to her C. diff colitis PLAN: -No surgical intervention planned for the appendix -Due to no improvement in patient's symptoms with abdominal distention and tenderness with acute C. diff colitis infection. We'll repeat a computed tomography scan of abdomen and pelvis with oral and IV contrast -Further recommendations forthcoming -Continue clear liquid diet -Continue IV fluids -Continue supportive care -GI prophylaxis Protonix and DVT prophylaxis subcu heparin Physician Access Clinician note has been reviewed by physician. Signing provider agrees with the documented findings, assessment, and plan of care. Objective - Vital Signs Vital signs: Vital Signs Temp 98.4 F 09/27/21 07:00 Pulse 92 09/27/21 07:00 Resp 16 09/27/21 07:27 BP 102/62 09/27/21 07:00 Pulse Ox 97 09/27/21 07:00 FiO2 Intake & Output 09/26/21 09/27/21 09/27/21 18:59 06:59 18:59 Intake Total 358 500 240 Output Total 1000 Balance -642 500 240 Intake: Oral 358 500 240 Output: Emesis 1000 Other: Voiding Method Toilet Toilet Toilet # Bowel Movements 1 - Labs CBC & Chem 7: 09/27/21 05:30 09/27/21 05:30 Labs: Abnormal Lab Results - Last 24 Hours (Table) 09/25/21 09/27/21 09/27/21 Range/Units 20:35 05:30 05:30 WBC 17.16 H (4.50-10.00) X 10*3/uL RBC 3.62 L (4.10-5.20) X 10*6/uL Hgb 10.3 L (12.0-15.0) g/dL Hct 32.3 L (37.2-46.3) % MCHC 31.9 L (32.0-37.0) g/dL Immature Gran # 0.11 H (0.00-0.04) X 10*3/uL Neutrophils # 14.02 H (1.80-7.70) X 10*3/uL Monocytes # 1.44 H (0.20-1.00) X 10*3/uL Sodium 134 L (135-145) mmol/L Carbon Dioxide 17.9 L (20.0-27.5) mmol/L BUN 2.1 L (9.0-27.0) mg/dL BUN/Creatinine Ratio 3.50 L (12.00-20.00) Ratio Calcium 7.7 L (8.7-10.3) mg/dL Total Protein 5.6 L (6.2-8.2) g/dL Albumin 3.4 L (3.8-4.9) g/dL Albumin/Globulin Ratio 1.55 L (1.60-3.17) g/dL C. difficile (EIA) Intrp Positive A (Negative) Microbiology - Last 24 Hours (Table) 09/26/21 09:03 Blood Culture - Preliminary Blood No Growth after 24 hours 09/25/21 20:35 Stool Culture - Preliminary Stool
[2021-09-27] MEDS: IOPAMIDOL CONTRAST (ORAL USE) VIAL PO PRN ×2 (12:19→13:02)
--- NOTE | 2021-09-27 14:16 | CT ---
EXAMINATION TYPE: CT abdomen pelvis w con DATE OF EXAM: 09/27/2021 COMPARISON: 09/25/2021 HISTORY: 41-year-old female abdominal pain, RLQ pain, vomiting TECHNIQUE: Contiguous axial scanning of the abdomen and pelvis following administration of 70 ml Isov ue 300 IV contrast. Delayed images through the kidneys and coronal/sagittal reconstructions performe d. CT DLP: 561.9 mGycm Automated exposure control for dose reduction was used. FINDINGS: Heart normal size without pericardial effusion. Lung bases clear without pleural effusion. Tiny hiatal hernia. Liver enlarged measuring 20.4 cm with low-attenuation suggesting fatty infiltration. No focal lesions seen. Portal venous system is patent. No biliary ductal dilatation. Gallbladder, adrenal glands, kidneys, spleen, and pancreas within normal limits. No dilated small bowel or free air seen. However, trace interloop fluid is present in the lower midabdomen and right lower quadrant. Some reac tive right lower quadrant mesenteric lymph nodes are similar to 9 mm. There is redemonstrated 8 mm appendicolith along the midsegment of the appendix, refer to coronal kay ge 40. There is persistent fluid dilatation of the distal portion of the appendix now with inflammato ry wall thickening and the development of surrounding inflammatory change and fat stranding. Some contiguous mild wall thickening extends to the cecum and ascending colon and mild pelvic ascites is also new. Bladder partially distended. Uterus is retroverted. Both ovaries are visualized. No pelvic lymphadeno lan. Bones: There are bilateral L5 pars defects with grade 1 anterolisthesis at L5-S1. IMPRESSION: 1. REDEMONSTRATED 8 MM APPENDICOLITH ALONG THE MID SEGMENT OF THE APPENDIX WITH INTERVAL DEVELOPMENT OF AN ACUTE TIP APPENDICITIS. REFER TO CORONAL IMAGE 40. MODERATE SURROUNDING INFLAMMATORY CHANGE REILLY NG WITH NEW MILD INTERLOOP AND PELVIC FREE FLUID. NO ABSCESS OR FREE AIR. 2. SOME ADJACENT CONTIGUOUS WALL THICKENING/INFLAMMATION OF THE CECUM AND ASCENDING COLON. 3. 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
--- NOTE | 2021-09-27 15:44 | P.PN ---
Subjective Progress Note Date: 09/27/21 Principal diagnosis: C. diff diarrhea Patient stated that she is continuing to have perfuse watery diarrhea. Objective - Vital Signs Vital signs: Vital Signs Temp 98.1 F 09/27/21 13:52 Pulse 95 09/27/21 13:52 Resp 14 09/27/21 13:52 BP 116/71 09/27/21 13:52 Pulse Ox 100 09/27/21 13:52 FiO2 Intake & Output 09/26/21 09/27/21 09/27/21 18:59 06:59 18:59 Intake Total 659 655 4620 Output Total 1000 1 Balance -190 332 0603 Intake: Oral 475 962 0367 Output: Emesis 1000 1 Other: Voiding Method Toilet Toilet Toilet # Voids 2 # Bowel Movements 1 4 - Exam General examination - Alert and Oriented 3 in NAD Heart - + S1S2 no murmurs Lungs - Clear to auscultation Abdomen soft tenderness to palpate in the lower quadrants ND +ve BS Extremities - No edema DIVER TENDER - Moving all 4 extremities spontaneously Psych - Calm and cooperative - Labs CBC & Chem 7: 09/27/21 05:30 09/27/21 05:30 Labs: Abnormal Lab Results - Last 24 Hours (Table) 09/27/21 09/27/21 Range/Units 05:30 05:30 WBC 17.16 H (4.50-10.00) X 10*3/uL RBC 3.62 L (4.10-5.20) X 10*6/uL Hgb 10.3 L (12.0-15.0) g/dL Hct 32.3 L (37.2-46.3) % MCHC 31.9 L (32.0-37.0) g/dL Immature Gran # 0.11 H (0.00-0.04) X 10*3/uL Neutrophils # 14.02 H (1.80-7.70) X 10*3/uL Monocytes # 1.44 H (0.20-1.00) X 10*3/uL Sodium 134 L (135-145) mmol/L Carbon Dioxide 17.9 L (20.0-27.5) mmol/L BUN 2.1 L (9.0-27.0) mg/dL BUN/Creatinine Ratio 3.50 L (12.00-20.00) Ratio Calcium 7.7 L (8.7-10.3) mg/dL Total Protein 5.6 L (6.2-8.2) g/dL Albumin 3.4 L (3.8-4.9) g/dL Albumin/Globulin Ratio 1.55 L (1.60-3.17) g/dL Microbiology - Last 24 Hours (Table) 09/26/21 09:03 Blood Culture - Preliminary Blood No Growth after 24 hours 09/25/21 20:35 Stool Culture - Preliminary Stool Assessment and Plan Assessment: Acute C. diff colitis -Resume vancomycin and IV Flagyl -IV fluids -Contact isolation -WBC increasing Acute appendicitis -Repeat computed tomography scan shows evidence of appendicitis -Defer surgery to primary team -Follow blood cultures -We'll start IV cefepime and resume IV Flagyl Hyponatremia secondary to above -IV fluids -Improving Hypokalemia -Replete as needed Chronic Asthma alpha antitrypsin deficiency -Stable -Resume home meds DVT prophylaxis She is low risk, ambulatory
[2021-09-27] MEDS: CEFEPIME 1 GM in SODIUM CHLORIDE 0.9% 50 ML IVPB SCH (20:01)
[2021-09-28] MEDS: HYDROmorphone 0.5 MG/0.5 ML SYRINGE IVP PRN ×4 (01:57→11:52)
[2021-09-28] MEDS: ONDANSETRON 4 MG/2 ML VIAL IVP PRN ×4 (01:59→20:51)
[2021-09-28] MEDS: SODIUM CHLORIDE 0.9% 1,000 ML IV SCH ×3 (02:03→20:51)
[2021-09-28] MEDS: metroNIDAZOLE-NS PMX 500 MG in SALINE 1 100ML.BAG IVPB SCH ×3 (08:28→23:41)
[2021-09-28] MEDS: PANTOPRAZOLE 40 MG/10 ML VIAL IVP SCH (08:30)
[2021-09-28] MEDS: HEPARIN SODIUM,PORCINE/PF 5,000 UNIT/0.5 ML SYRINGE SQ SCH ×2 (08:30→20:51)
[2021-09-28] MEDS: VANCOMYCIN 125 MG CAPSULE PO SCH ×4 (08:34→22:24)
[2021-09-28 09:05] LABS: Basophils # (A) 0.04 X 10*3/uL (0.00-0.10); Basophils % (A) 0.3 %; Eosinophils # (A) 0.04 X 10*3/uL (0.04-0.35); Eosinophils % (A) 0.3 %; HCT 30.9 % (37.2-46.3); HGB 10.2 g/dL (12.0-15.0); Immature Grans, Automated 0.8 %; Lymphocytes # (A) 1.43 X 10*3/uL (0.90-5.00); MCH 29.1 pg (27.0-32.0); MCV 88.3 fL (80.0-97.0); Mean Platelet Volume 9.6 fL (9.5-12.2); Monocytes # (A) 1.29 X 10*3/uL (0.20-1.00); Monocytes % (A) 8.1 %; NRBC Per 100 WBC 0 /100 WBCS (0.0-0.0); Neutrophils # (A) 12.92 X 10*3/uL (1.80-7.70); Neutrophils % (A) 81.5 %; Platelet Count 366 X 10*3/uL (140-440); RDW 12.6 % (11.5-14.5); WBC 15.85 X 10*3/uL (4.50-10.00)
[2021-09-28 09:15] LABS: African American GFR (CKD) 133.1 (60.0-200.0); Anion Gap 11.9 mmol/L (10.00-18.00); BUN/Creat Ratio 2.33 Ratio (12.00-20.00); Blood Urea Nitrogen 1.4 mg/dL (9.0-27.0); Calcium 7.9 mg/dL (8.7-10.3); Carbon Dioxide 20.1 mmol/L (20.0-27.5); Non-African American GFR(CKD) 114.8 (60.0-200.0); Potassium 3.4 mmol/L (3.5-5.5)
[2021-09-28] MEDS: CEFEPIME 1 GM in SODIUM CHLORIDE 0.9% 50 ML IVPB SCH ×2 (10:31→20:50)
[2021-09-28] MEDS ORDERED: POTASSIUM CHLORIDE 20 MEQ in WATER FOR INJECTION 1 100ML.BAG IVPB STA (13:45)
--- NOTE | 2021-09-28 13:49 | P.PN ---
Subjective Progress Note Date: 09/28/21 Principal diagnosis: C. diff diarrhea Patient states that her pain is now more localized to the right lower quadrant. Patient says that she still continued to have perfuse watery diarrhea. She states that she is on about 4-5 times since midnight. Objective - Vital Signs Vital signs: Vital Signs Temp 97.9 F 09/28/21 07:00 Pulse 85 09/28/21 07:00 Resp 18 09/28/21 07:00 BP 99/61 09/28/21 07:00 Pulse Ox 98 09/28/21 07:00 FiO2 Intake & Output 09/27/21 09/28/21 09/28/21 18:59 06:59 18:59 Intake Total 1240 120 Output Total 1 0 Balance 1239 0 120 Intake: Oral 1240 120 Output: Emesis 1 0 Other: Voiding Method Toilet Toilet # Voids 2 1 # Bowel Movements 4 3 - Exam General examination - Alert and Oriented 3 in NAD Heart - + S1S2 no murmurs Lungs - Clear to auscultation Abdomen soft tenderness to palpate in the right lower quadrant ND +ve BS Extremities - No edema MIGRATORY FARM HAND - Moving all 4 extremities spontaneously Psych - Calm and cooperative - Labs CBC & Chem 7: 09/28/21 06:19 09/28/21 06:19 Labs: Abnormal Lab Results - Last 24 Hours (Table) 09/28/21 09/28/21 Range/Units 06:19 06:19 WBC 15.85 H (4.50-10.00) X 10*3/uL RBC 3.50 L (4.10-5.20) X 10*6/uL Hgb 10.2 L (12.0-15.0) g/dL Hct 30.9 L (37.2-46.3) % Immature Gran # 0.13 H (0.00-0.04) X 10*3/uL Neutrophils # 12.92 H (1.80-7.70) X 10*3/uL Monocytes # 1.29 H (0.20-1.00) X 10*3/uL Potassium 3.4 L (3.5-5.5) mmol/L BUN 1.4 L (9.0-27.0) mg/dL BUN/Creatinine Ratio 2.33 L (12.00-20.00) Ratio Calcium 7.9 L (8.7-10.3) mg/dL Microbiology - Last 24 Hours (Table) 09/26/21 09:03 Blood Culture - Preliminary Blood No Growth after 48 hours Assessment and Plan Assessment: Acute C. diff colitis -Resume vancomycin and IV Flagyl -IV fluids -Contact isolation -WBC improving Acute appendicitis -Repeat computed tomography scan shows evidence of appendicitis -Defer surgery to primary team -Follow blood cultures -We'll start IV cefepime and resume IV Flagyl Hyponatremia secondary to above -IV fluids -Improving Hypokalemia -Replete as needed Chronic Asthma alpha antitrypsin deficiency -Stable -Resume home meds DVT prophylaxis She is low risk, ambulatory
[2021-09-28] MEDS: HYDROmorphone 1 MG/ML 1 ML SYRINGE IVP PRN ×2 (14:46→20:51)
--- NOTE | 2021-09-28 15:47 | P.PN ---
Subjective Progress Note Date: 09/28/21 CHIEF COMPLAINT: Abdominal pain and diarrhea HISTORY OF PRESENT ILLNESS: Patient with C. diff colitis. She's currently on IV Flagyl and oral vancomycin. Patient complains that she is still not feeling we ll. She reports that her pain is now more in the right lower quadrant. The left side does not hurt as much. Her diarrhea is starting to decrease in frequency. She still feels bloated. Has decreased appetite. She reports nausea. Denies any vomiting. Medicine service did add IV cefepime. WBC is down from 17.16-15.85. Sodium is 136 potassium 3.4 medicine is replacing potassium creatinine 0.[address] abdomen and pelvis redemonstrated 8 mm appendicolith along the mid segment of the appendix with interval development of an acute tip appendicitis. Moderate surrounding inflammatory change along with new mild interloop and pelvic free fluid. No abscess or free air. Some adjacent contiguous wall thickening/inflammation of the cecum and ascending colon. Tiny hiatal hernia. Hepatomegaly with hepatic steatosis. Patient seen and examined with Dr. Grullon PHYSICAL EXAM: VITAL SIGNS: Reviewed. GENERAL: Well-developed in no acute distress. HEENT: No sclera icterus. Extraocular movements grossly intact. Moist buccal mucosa. Head is atraumatic, normocephalic. ABDOMEN: Soft. Mildly distended. Tenderness to palpation of the right lower quadrant NEUROLOGIC: Alert and oriented. Cranial nerves II through XII grossly intact. ASSESSMENT: 1. C. diff colitis 2. Computed tomography scan had shown appendicolith and tip of the appendix is slightly thickened. Possible appendicitis. PLAN: -Per Dr. Grullon Patient's symptoms are likely still related to C. diff co litis. There is a possibility that there could be some underlying appendicitis. Per Dr. grullon we'll continue to observe and treat medically. -Agree with adding cefepime -Increase IV Dilaudid 1 mg every 3 hours as needed -Continue clear liquid diet -Continue IV fluids -Continue supportive care -GI prophylaxis Protonix and DVT prophylaxis subcu heparin Physician Creosoting Engineer note has been reviewed by physician. Signing provider agrees with the documented findings, assessment, and plan of care. Objective - Vital Signs Vital signs: Vital Signs Temp 97.9 F 09/28/21 13:53 Pulse 86 09/28/21 13:53 Resp 18 09/28/21 13:53 BP 106/65 06/29/22 13:53 Pulse Ox 97 09/28/21 13:53 FiO2 Intake & Output 09/27/21 09/28/21 09/28/21 18:59 06:59 18:59 Intake Total 1240 1320 Output Total 1 0 Balance 1239 0 1320 Intake: IV 1200 Cefepime 1 gm In Sodium 100 Chloride 0.9% 50 ml @ 12. 5 mls/hr IVPB Q12HR [facility] Rx#:[id number] Sodium Chloride 0.9% 1, 1000 000 ml @ 125 mls/hr IV . Q8H [facility] Rx#:[id number] metroNIDAZOLE-NS PMX 500 100 mg In Saline 1 100ml.bag @ 100 mls/hr IVPB Q8H [facility] Rx#:[id number] Oral 1240 120 Output: Emesis 1 0 Other: Voiding Method Toilet Toilet Toilet # Voids 2 4 # Bowel Movements 4 3 4 - Labs CBC & Chem 7: 09/28/21 06:19 09/28/21 06:19 Labs: Abnormal Lab Results - Last 24 Hours (Table) 09/28/21 09/28/21 Range/Units 06:19 06:19 WBC 15.85 H (4.50-10.00) X 10*3/uL RBC 3.50 L (4.10-5.20) X 10*6/uL Hgb 10.2 L (12.0-15.0) g/dL Hct 30.9 L (37.2-46.3) % Immature Gran # 0.13 H (0.00-0.04) X 10*3/uL Neutrophils # 12.92 H (1.80-7.70) X 10*3/uL Monocytes # 1.29 H (0.20-1.00) X 10*3/uL Potassium 3.4 L (3.5-5.5) mmol/L BUN 1.4 L (9.0-27.0) mg/dL BUN/Creatinine Ratio 2.33 L (12.00-20.00) Ratio Calcium 7.9 L (8.7-10.3) mg/dL Microbiology - Last 24 Hours (Table) 09/26/21 09:03 Blood Culture - Preliminary Blood No Growth after 48 hours
[2021-09-28] MEDS ORDERED: POTASSIUM CHLORIDE ER 20 MEQ TAB.ER PO STA (16:13)
[2021-09-29] MEDS: ONDANSETRON 4 MG/2 ML VIAL IVP PRN ×4 (03:14→21:39)
[2021-09-29] MEDS: PANTOPRAZOLE 40 MG/10 ML VIAL IVP SCH (08:56)
[2021-09-29] MEDS: metroNIDAZOLE-NS PMX 500 MG in SALINE 1 100ML.BAG IVPB SCH ×3 (08:56→21:40)
[2021-09-29] MEDS: HEPARIN SODIUM,PORCINE/PF 5,000 UNIT/0.5 ML SYRINGE SQ SCH ×2 (08:57→20:20)
[2021-09-29] MEDS: VANCOMYCIN 125 MG CAPSULE PO SCH ×4 (08:58→21:40)
[2021-09-29] MEDS: CEFEPIME 1 GM in SODIUM CHLORIDE 0.9% 50 ML IVPB SCH ×2 (09:08→20:19)
[2021-09-29 09:12] LABS: Magnesium 1.9 mg/dL (1.5-2.4)
[2021-09-29 09:28] LABS: Basophils # (A) 0.05 X 10*3/uL (0.00-0.10); Basophils % (A) 0.3 %; Eosinophils # (A) 0.02 X 10*3/uL (0.04-0.35); Eosinophils % (A) 0.1 %; HCT 30.2 % (37.2-46.3); HGB 9.9 g/dL (12.0-15.0); Immature Grans, Automated 1.4 %; Lymphocytes # (A) 1.21 X 10*3/uL (0.90-5.00); Lymphocytes % (A) 7.7 %; MCH 28.7 pg (27.0-32.0); MCHC 32.8 g/dL (32.0-37.0); MCV 87.5 fL (80.0-97.0); Mean Platelet Volume 9.9 fL (9.5-12.2); Monocytes # (A) 1.19 X 10*3/uL (0.20-1.00); Monocytes % (A) 7.5 %; NRBC Per 100 WBC 0 /100 WBCS (0.0-0.0); Platelet Count 416 X 10*3/uL (140-440); RBC 3.45 X 10*6/uL (4.10-5.20); RDW 12.7 % (11.5-14.5); WBC 15.79 X 10*3/uL (4.50-10.00)
[2021-09-29 09:57] LABS: African American GFR (CKD) 141.3 (60.0-200.0); Blood Urea Nitrogen <1.4 mg/dL (9.0-27.0); Calcium 8.3 mg/dL (8.7-10.3); Carbon Dioxide 25.5 mmol/L (20.0-27.5); Chloride 103 mmol/L (96-109); Glucose 128 mg/dL (70-110); Non-African American GFR(CKD) 121.9 (60.0-200.0); Potassium 3.1 mmol/L (3.5-5.5); Sodium 139 mmol/L (135-145)
[2021-09-29] MEDS: SCOPOLAMINE 1 MG/72 HR PATCH TRANSDERM SCH (11:28)
[2021-09-29] MEDS: POTASSIUM CHLORIDE ER 20 MEQ TAB.ER PO SCH ×2 (11:28→13:06)
[2021-09-29] MEDS: HYDROmorphone 0.5 MG/0.5 ML SYRINGE IVP PRN ×2 (13:07→21:39)
--- NOTE | 2021-09-29 14:15 | P.PN ---
Subjective Progress Note Date: 09/29/21 Principal diagnosis: C. diff diarrhea Patient states that his malformation to her diarrhea. She states that it is a pudding consistency. Patient says that her abdominal pain is improving and feels that the abdominal pain is more localized to the right lower quadrant. As per surgery her abdominal pain likely due to C. diff colitis. Objective - Vital Signs Vital signs: Vital Signs Temp 98.3 F 09/29/21 08:00 Pulse 96 09/29/21 08:00 Resp 16 09/29/21 08:00 BP 107/62 09/29/21 08:00 Pulse Ox 98 09/29/21 08:00 FiO2 Intake & Output 09/28/21 09/29/21 09/29/21 18:59 06:59 18:59 Intake Total 1440 Balance 1440 Intake: IV 1200 Cefepime 1 gm In Sodium 100 Chloride 0.9% 50 ml @ 12. 5 mls/hr IVPB Q12HR [facility] Rx#:[id number] Sodium Chloride 0.9% 1, 1000 000 ml @ 125 mls/hr IV . 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 all 4 extremities spontaneously Psych - Calm and cooperative - Labs CBC & Chem 7: 09/29/21 05:35 09/29/21 05:35 Labs: Abnormal Lab Results - Last 24 Hours (Table) 09/29/21 09/29/21 Range/Units 05:35 05:35 WBC 15.79 H (4.50-10.00) X 10*3/uL RBC 3.45 L (4.10-5.20) X 10*6/uL Hgb 9.9 L (12.0-15.0) g/dL Hct 30.2 L (37.2-46.3) % Immature Gran # 0.22 H (0.00-0.04) X 10*3/uL Neutrophils # 13.10 H (1.80-7.70) X 10*3/uL Monocytes # 1.19 H (0.20-1.00) X 10*3/uL Eosinophils # 0.02 L (0.04-0.35) X 10*3/uL Potassium 3.1 L (3.5-5.5) mmol/L BUN <1.4 L (9.0-27.0) mg/dL Creatinine 0.5 L (0.6-1.5) mg/dL Glucose 128 H (70-110) mg/dL Calcium 8.3 L (8.7-10.3) mg/dL Microbiology - Last 24 Hours (Table) 09/26/21 09:03 Blood Culture - Preliminary Blood No Growth after 72 hours 09/25/21 20:35 Stool Culture - Preliminary Stool Assessment and Plan Assessment: Acute C. diff colitis -Resume vancomycin and IV Flagyl -IV fluids -Contact isolation -WBC improving Acute appendicitis -Repeat computed tomography scan shows evidence of appendicitis -Defer surgery to primary team -Follow blood cultures -We'll start IV cefepime and resume IV Flagyl Hyponatremia secondary to above -IV fluids -Improving Hypokalemia -Replete as needed Chronic Asthma alpha antitrypsin deficiency -Stable -Resume home meds DVT prophylaxis She is low risk, ambulatory
--- NOTE | 2021-09-29 15:01 | P.PN ---
Subjective Progress Note Date: 09/29/21 CHIEF COMPLAINT: Abdominal pain and diarrhea HISTORY OF PRESENT ILLNESS: Patient with C. diff colitis. Patient reports improvement in her pain from yesterday. Her main complaint is nausea. No vomiting. She feels that the medications between the pain meds antibiotics are increasing her nausea. The pain on the left side of the abdomen has been very much resolved. Her right lower quadrant pain is decreased from yesterday. She still feels bloated. Afebrile. White count 15.79. She is still having diarrhea but less frequent and starting to have flecks of solid stool in it. She is requesting advancement of diet. She is not requiring the pain medication as often. Afebrile. Na 139 potassium 3.1 creatinine 0.5 magnesium 1.9 Patient seen and examined with Dr. Grullon PHYSICAL EXAM: VITAL SIGNS: Reviewed. GENERAL: Well-developed in no acute distress. HEENT: No sclera icterus. Extraocular movements grossly intact. Moist buccal mucosa. Head is atraumatic, normocephalic. ABDOMEN: Soft. Mildly distended. Tenderness to palpation of the right lower quadrant NEUROLOGIC: Alert and oriented. Cranial nerves II through XII grossly intact. ASSESSMENT: 1. C. diff colitis 2. Computed tomography scan had shown appendicolith and tip of the appendix is slightly thickened. Possible appendicitis. PLAN: -Advance diet to full liquids -Decreased Dilaudid 0.5 mg IV every 3 hours as needed -Add scopolamine patch for nausea -Potassium being replaced -Per Dr. Grullon Patient's symptoms are likely still related to C. diff colitis. There is a possibility that there could be some underlying appendicitis. Per Dr. grullon we'll continue to observe and treat medically. -Continue C. diff treatment -Agree with adding cefepime -Continue IV fluids -Continue supportive care -GI prophylaxis Protonix and DVT prophylaxis subcu heparin Physician Steam Train Driver note has been reviewed by physician. Signing provider agrees with the documented findings, assessment, and plan of care. Objective - Vital Signs Vital signs: Vital Signs Temp 98.3 F 09/29/21 08:00 Pulse 96 09/29/21 08:00 Resp 16 09/29/21 08:00 BP 107/62 09/29/21 08:00 Pulse Ox 98 09/29/21 08:00 FiO2 Intake & Output 0609/29/21 09/29/21 18:59 06:59 18:59 Intake Total 1440 Balance 1440 Intake: IV 1200 Cefepime 1 gm In Sodium 100 Chloride 0.9% 50 ml @ 12. 5 mls/hr IVPB Q12HR [facility] Rx#:[id number] Sodium Chloride 0.9% 1, 1000 000 ml @ 125 mls/hr IV . Q8H [facility] Rx#:[id number] metroNIDAZOLE-NS PMX 500 100 mg In Saline 1 100ml.bag @ 100 mls/hr IVPB Q8H [facility] Rx#:[id number] Oral 240 Other: Voiding Method Toilet Toilet # Voids 4 2 # Bowel Movements 4 4 - Labs CBC & Chem 7: 09/29/21 05:35 09/29/21 05:35 Labs: Abnormal Lab Results - Last 24 Hours (Table) 09/29/21 09/29/21 Range/Units 05:35 05:35 WBC 15.79 H (4.50-10.00) X 10*3/uL RBC 3.45 L (4.10-5.20) X 10*6/uL Hgb 9.9 L (12.0-15.0) g/dL Hct 30.2 L (37.2-46.3) % Immature Gran # 0.22 H (0.00-0.04) X 10*3/uL Neutrophils # 13.10 H (1.80-7.70) X 10*3/uL Monocytes # 1.19 H (0.20-1.00) X 10*3/uL Eosinophils # 0.02 L (0.04-0.35) X 10*3/uL Potassium 3.1 L (3.5-5.5) mmol/L BUN <1.4 L (9.0-27.0) mg/dL Creatinine 0.5 L (0.6-1.5) mg/dL Glucose 128 H (70-110) mg/dL Calcium 8.3 L (8.7-10.3) mg/dL Microbiology - Last 24 Hours (Table) 09/26/21 09:03 Blood Culture - Preliminary Blood No Growth after 72 hours 09/25/21 20:35 Stool Culture - Preliminary Stool
[2021-09-29] MEDS: SODIUM CHLORIDE 0.9% 1,000 ML IV SCH ×3 (15:55→20:20)
[2021-09-29 20:23] LABS: Glucose,Whole Blood 126 mg/dL (70-110)
[2021-09-30] MEDS: ONDANSETRON 4 MG/2 ML VIAL IVP PRN ×4 (04:46→23:05)
[2021-09-30] MEDS: SODIUM CHLORIDE 0.9% 1,000 ML IV SCH ×3 (05:06→20:41)
[2021-09-30] MEDS: CEFEPIME 1 GM in SODIUM CHLORIDE 0.9% 50 ML IVPB SCH ×2 (08:25→20:47)
[2021-09-30] MEDS: metroNIDAZOLE-NS PMX 500 MG in SALINE 1 100ML.BAG IVPB SCH ×3 (08:26→23:06)
[2021-09-30] MEDS: PANTOPRAZOLE 40 MG/10 ML VIAL IVP SCH (08:27)
[2021-09-30] MEDS: VANCOMYCIN 125 MG CAPSULE PO SCH ×4 (08:27→20:47)
[2021-09-30] MEDS: HEPARIN SODIUM,PORCINE/PF 5,000 UNIT/0.5 ML SYRINGE SQ SCH ×2 (08:27→20:47)
[2021-09-30 08:46] LABS: Basophils # (A) 0.05 X 10*3/uL (0.00-0.10); Basophils % (A) 0.4 %; Eosinophils # (A) 0.04 X 10*3/uL (0.04-0.35); Eosinophils % (A) 0.3 %; HCT 30.8 % (37.2-46.3); HGB 9.7 g/dL (12.0-15.0); Immature Grans, Automated 1.9 %; Lymphocytes # (A) 1.71 X 10*3/uL (0.90-5.00); Lymphocytes % (A) 12.2 %; MCH 28.2 pg (27.0-32.0); MCHC 31.5 g/dL (32.0-37.0); MCV 89.5 fL (80.0-97.0); Mean Platelet Volume 9.6 fL (9.5-12.2); Monocytes # (A) 1.03 X 10*3/uL (0.20-1.00); Monocytes % (A) 7.3 %; NRBC Per 100 WBC 0 /100 WBCS (0.0-0.0); Neutrophils # (A) 10.95 X 10*3/uL (1.80-7.70); Neutrophils % (A) 77.9 %; Platelet Count 451 X 10*3/uL (140-440); RBC 3.44 X 10*6/uL (4.10-5.20); WBC 14.04 X 10*3/uL (4.50-10.00)
[2021-09-30 08:48] LABS: African American GFR (CKD) 135.1 (60.0-200.0); Anion Gap 11.7 mmol/L (10.00-18.00); BUN/Creat Ratio 3.51 Ratio (12.00-20.00); Carbon Dioxide 24.8 mmol/L (20.0-27.5); Non-African American GFR(CKD) 116.6 (60.0-200.0); Potassium 3.2 mmol/L (3.5-5.5)
--- NOTE | 2021-09-30 10:52 | P.PN ---
Progress Note - Text Progress Note Date: 09/30/21 Patient feels better today. She still having some diarrhea with blood. Her abdominal pain and distention improved. On exam vital signs are stable. Abdomen soft. Resolving C. diff colitis. Patient received antibody therapy and her diet will remain on full liquids.
--- NOTE | 2021-09-30 11:25 | P.PN ---
Subjective Progress Note Date: 09/30/21 Principal diagnosis: C. diff diarrhea Patient states that she still having diarrhea however the frequency started to decrease. She says that most of her stool is watery will however there is some formation in it. She also states that there is some blood. Patient reports that about pain is improving however still continues to have right lower quadrant abdominal pain. 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 Psych - Calm and cooperative - Labs CBC & Chem 7: 09/30/21 05:16 09/30/21 05:16 Labs: Abnormal Lab Results - Last 24 Hours (Table) 09/29/21 09/30/21 09/30/21 Range/Units 20:20 05:16 05:16 WBC 14.04 H (4.50-10.00) X 10*3/uL RBC 3.44 L (4.10-5.20) X 10*6/uL Hgb 9.7 L (12.0-15.0) g/dL Hct 30.8 L (37.2-46.3) % MCHC 31.5 L (32.0-37.0) g/dL Plt Count 451 H (140-440) X 10*3/uL Immature Gran # 0.26 H (0.00-0.04) X 10*3/uL Neutrophils # 10.95 H (1.80-7.70) X 10*3/uL Monocytes # 1.03 H (0.20-1.00) X 10*3/uL Potassium 3.2 L (3.5-5.5) mmol/L BUN 2.0 L (9.0-27.0) mg/dL BUN/Creatinine Ratio 3.51 L (12.00-20.00) Ratio Glucose 114 H (70-110) mg/dL POC Glucose (mg/dL) 126 H (70-110) mg/dL Calcium 8.0 L (8.7-10.3) mg/dL Microbiology - Last 24 Hours (Table) 09/26/21 09:03 Blood Culture - Preliminary Blood No Growth after 96 hours Assessment and Plan Assessment: Acute C. diff colitis -Resume oral vancomycin and IV Flagyl -IV fluids -Contact isolation -WBC improving -Patient is reports that her diarrhea is less frequent and there is some formation in her stool Acute appendicitis -Repeat computed tomography scan shows evidence of appendicitis -Defer surgery to primary team -Follow blood cultures -Resume IV cefepime and Flagyl Hyponatremia secondary to above -IV fluids -Improving Hypokalemia -Replete as needed Chronic Asthma alpha antitrypsin deficiency -Stable -Resume home meds DVT prophylaxis She is low risk, ambulatory
[2021-09-30] MEDS: POTASSIUM CHLORIDE ER 20 MEQ TAB.ER PO SCH ×2 (11:41→14:39)
[2021-09-30] MEDS: HYDROmorphone 0.5 MG/0.5 ML SYRINGE IVP PRN ×2 (17:26→23:06)
[2021-10-01] MEDS: HYDROmorphone 0.5 MG/0.5 ML SYRINGE IVP PRN ×2 (02:35→07:42)
[2021-10-01] MEDS: SODIUM CHLORIDE 0.9% 1,000 ML IV SCH ×3 (05:12→20:08)
[2021-10-01] MEDS: ONDANSETRON 4 MG/2 ML VIAL IVP PRN ×3 (07:41→19:42)
[2021-10-01] MEDS: VANCOMYCIN 125 MG CAPSULE PO SCH ×4 (07:42→19:42)
[2021-10-01] MEDS: PANTOPRAZOLE 40 MG/10 ML VIAL IVP SCH (07:42)
[2021-10-01] MEDS: metroNIDAZOLE-NS PMX 500 MG in SALINE 1 100ML.BAG IVPB SCH (07:42)
[2021-10-01] MEDS: HEPARIN SODIUM,PORCINE/PF 5,000 UNIT/0.5 ML SYRINGE SQ SCH ×2 (07:42→19:42)
[2021-10-01 09:00] LABS: HCT 26.6 % (37.2-46.3); HGB 8.5 g/dL (12.0-15.0); MCH 28.5 pg (27.0-32.0); MCV 89.3 fL (80.0-97.0); Mean Platelet Volume 9.8 fL (9.5-12.2); NRBC Per 100 WBC 0 /100 WBCS (0.0-0.0); Platelet Count 446 X 10*3/uL (140-440); RBC 2.98 X 10*6/uL (4.10-5.20); RDW 13.2 % (11.5-14.5); WBC 12.78 X 10*3/uL (4.50-10.00)
[2021-10-01 09:11] LABS: African American GFR (CKD) 141.3 (60.0-200.0); BUN/Creat Ratio 5.2 Ratio (12.00-20.00); Blood Urea Nitrogen 2.6 mg/dL (9.0-27.0); Calcium 8.2 mg/dL (8.7-10.3); Non-African American GFR(CKD) 121.9 (60.0-200.0); Potassium 3.6 mmol/L (3.5-5.5)
--- NOTE | 2021-10-01 10:25 | P.PN ---
Subjective Progress Note Date: 10/01/21 Principal diagnosis: C. diff diarrhea Patient states that her diarrhea is improving. She states that it is less frequent. However she said that there is still some blood in it. She describes the consistency of her stool as "soil". Patient states that last night she did have some abdominal pain and required some pain meds. She states that she vomited this morning to minutes after she was given the pain meds so she believes that the pain meds likely causing her to be nauseous. Patient stated that she was ambulated yesterday which helped with her symptoms. 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 Psych - Calm and cooperative - Labs CBC & Chem 7: 10/01/21 04:11 10/01/21 04:11 Labs: Abnormal Lab Results - Last 24 Hours (Table) 10/01/21 10/01/21 Range/Units 04:11 04:11 WBC 12.78 H (4.50-10.00) X 10*3/uL RBC 2.98 L (4.10-5.20) X 10*6/uL Hgb 8.5 L (12.0-15.0) g/dL Hct 26.6 L (37.2-46.3) % Plt Count 446 H (140-440) X 10*3/uL Anion Gap 7.00 L (10.00-18.00) mmol/L BUN 2.6 L (9.0-27.0) mg/dL Creatinine 0.5 L (0.6-1.5) mg/dL BUN/Creatinine Ratio 5.20 L (12.00-20.00) Ratio Calcium 8.2 L (8.7-10.3) mg/dL Microbiology - Last 24 Hours (Table) 09/25/21 20:35 Stool Culture - Final Stool 09/26/21 09:03 Blood Culture - Preliminary Blood No Growth after 96 hours Assessment and Plan Assessment: Acute C. diff colitis -Resume oral vancomycin. -Blood cultures negative. Stool cultures negative so discontinue Flagyl -IV fluids -Contact isolation -WBC improving -Patient reports that her diarrhea is much less frequent than when she came in. She states that there is however some blood in her stool. Acute appendicitis -Repeat computed tomography scan shows evidence of appendicitis -Defer surgery to primary team -Resume IV cefepime Lower GI bleed likely due to colitis Acute blood loss anemia -Continue to trend CBC -Gen. surgery following Hyponatremia secondary to above -IV fluids -Improving Hypokalemia -Replete as needed Chronic Asthma alpha antitrypsin deficiency -Stable -Resume home meds DVT prophylaxis She is low risk, ambulatory
[2021-10-01] MEDS: CEFEPIME 1 GM in SODIUM CHLORIDE 0.9% 50 ML IVPB SCH ×2 (11:12→19:42)
--- NOTE | 2021-10-01 11:38 | P.PN ---
Progress Note - Text Progress Note Date: 10/01/21 Patient feels better. Her diarrhea slightly improved. On exam vital signs are stable. Abdomen soft. Resolving C. diff colitis. Patient received medical management.
[2021-10-02] MEDS: ONDANSETRON 4 MG/2 ML VIAL IVP PRN ×4 (01:48→20:30)
[2021-10-02] MEDS: SODIUM CHLORIDE 0.9% 1,000 ML IV SCH ×3 (05:40→19:33)
[2021-10-02] MEDS: PANTOPRAZOLE 40 MG/10 ML VIAL IVP SCH (08:02)
[2021-10-02] MEDS: HEPARIN SODIUM,PORCINE/PF 5,000 UNIT/0.5 ML SYRINGE SQ SCH ×2 (08:02→19:33)
[2021-10-02] MEDS: CEFEPIME 1 GM in SODIUM CHLORIDE 0.9% 50 ML IVPB SCH ×2 (08:03→19:32)
[2021-10-02] MEDS: VANCOMYCIN 125 MG CAPSULE PO SCH ×4 (08:04→19:33)
[2021-10-02 10:07] LABS: Basophils # (A) 0.06 X 10*3/uL (0.00-0.10); Basophils % (A) 0.4 %; Eosinophils # (A) 0.06 X 10*3/uL (0.04-0.35); Eosinophils % (A) 0.4 %; HCT 28.7 % (37.2-46.3); HGB 9.2 g/dL (12.0-15.0); Immature Grans, Automated 2.1 %; Lymphocytes # (A) 2.23 X 10*3/uL (0.90-5.00); Lymphocytes % (A) 14.8 %; MCH 28.6 pg (27.0-32.0); MCHC 32.1 g/dL (32.0-37.0); MCV 89.1 fL (80.0-97.0); NRBC Per 100 WBC 0.1 /100 WBCS (0.0-0.0); Neutrophils # (A) 11.52 X 10*3/uL (1.80-7.70); Neutrophils % (A) 76.3 %; Platelet Count 505 X 10*3/uL (140-440); RBC 3.22 X 10*6/uL (4.10-5.20); WBC 15.08 X 10*3/uL (4.50-10.00)
--- NOTE | 2021-10-02 10:24 | P.PN ---
Progress Note - Text Progress Note Date: 10/02/21 Patient's improving slowly. She's had less diarrhea. Her abdominal pains improved. She is requesting 48. On exam vital signs are stable. Abdomen soft. There is still some mild distention. C resolving C. diff colitis. Patient to receive IV antibiotic.
[2021-10-02 10:38] LABS: African American GFR (CKD) 134.1 (60.0-200.0); Anion Gap 11.8 mmol/L (10.00-18.00); BUN/Creat Ratio 5.72 Ratio (12.00-20.00); Blood Urea Nitrogen 3.4 mg/dL (9.0-27.0); Calcium 8.4 mg/dL (8.7-10.3); Magnesium 2.1 mg/dL (1.5-2.4); Non-African American GFR(CKD) 115.7 (60.0-200.0); Potassium 3.3 mmol/L (3.5-5.5)
[2021-10-02] MEDS: SCOPOLAMINE 1 MG/72 HR PATCH TRANSDERM SCH (12:10)
--- NOTE | 2021-10-02 13:49 | P.PN ---
Subjective Progress Note Date: 10/02/21 Principal diagnosis: C. diff diarrhea Patient states that she still having some blood in her stool. She states that her diarrhea was improving however this morning she started having watery diarrhea again. Overall she says that her main complaint is her nausea. 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 Psych - Calm and cooperative - Labs CBC & Chem 7: 10/02/21 05:46 10/02/21 05:46 Labs: Abnormal Lab Results - Last 24 Hours (Table) 10/02/21 10/02/21 Range/Units 05:46 05:46 WBC 15.08 H (4.50-10.00) X 10*3/uL RBC 3.22 L (4.10-5.20) X 10*6/uL Hgb 9.2 L (12.0-15.0) g/dL Hct 28.7 L (37.2-46.3) % Plt Count 505 H (140-440) X 10*3/uL Absolute Nucleated RBC 0.02 H (0.00-0.00) X 10*3/uL Immature Gran # 0.31 H (0.00-0.04) X 10*3/uL Neutrophils # 11.52 H (1.80-7.70) X 10*3/uL NRBC/100 WBC Diff 0.1 H (0.0-0.0) /100 WBCS Potassium 3.3 L (3.5-5.5) mmol/L BUN 3.4 L (9.0-27.0) mg/dL BUN/Creatinine Ratio 5.72 L (12.00-20.00) Ratio Calcium 8.4 L (8.7-10.3) mg/dL Microbiology - Last 24 Hours (Table) 09/26/21 09:03 Blood Culture - Final Blood No Growth after 144 hours Assessment and Plan Assessment: Acute C. diff colitis -Resume oral vancomycin. -Blood cultures negative. Stool cultures negative so discontinue Flagyl -IV fluids -Contact isolation -WBC elevated this morning -Patient says that the frequency of her diarrhea has improved however consistency sometimes watery Acute appendicitis? -Repeat computed tomography scan shows evidence of appendicitis -Defer surgery to primary team -Resume IV cefepime Lower GI bleed likely due to colitis Acute blood loss anemia -Continue to trend CBC -> hemoglobin is stable this morning -Gen. surgery following Hyponatremia secondary to above -IV fluids -Improving Hypokalemia -Replete as needed Chronic Asthma alpha antitrypsin deficiency -Stable -Resume home meds DVT prophylaxis She is low risk, ambulatory
[2021-10-02] MEDS: POTASSIUM CHLORIDE ER 20 MEQ TAB.ER PO SCH ×2 (14:25→17:23)
[2021-10-02] MEDS: HYDROmorphone 0.5 MG/0.5 ML SYRINGE IVP PRN ×2 (16:01→21:33)
[2021-10-03] MEDS: ONDANSETRON 4 MG/2 ML VIAL IVP PRN ×2 (02:42→08:50)
[2021-10-03] MEDS: HYDROmorphone 0.5 MG/0.5 ML SYRINGE IVP PRN ×3 (02:42→13:32)
[2021-10-03] MEDS: SODIUM CHLORIDE 0.9% 1,000 ML IV SCH ×3 (04:20→21:50)
[2021-10-03] MEDS: PANTOPRAZOLE 40 MG/10 ML VIAL IVP SCH (08:50)
[2021-10-03] MEDS: HEPARIN SODIUM,PORCINE/PF 5,000 UNIT/0.5 ML SYRINGE SQ SCH ×2 (08:50→21:04)
[2021-10-03] MEDS: CEFEPIME 1 GM in SODIUM CHLORIDE 0.9% 50 ML IVPB SCH ×2 (08:50→21:03)
[2021-10-03] MEDS: VANCOMYCIN 125 MG CAPSULE PO SCH ×3 (09:10→17:35)
--- NOTE | 2021-10-03 10:18 | P.PN ---
Progress Note - Text Progress Note Date: 10/03/21 Patient feels slightly better. She's had increased pain today. On exam vital signs are stable. Abdomen soft. At his last distended and less tender. Resolving C. diff colitis. We discussed the discharge home tomorrow.
[2021-10-03 12:23] LABS: HCT 31.6 % (34.0-46.0); HGB 10.5 gm/dL (11.4-16.0); MCH 29.6 pg (25.0-35.0); MCHC 33.2 g/dL (31.0-37.0); MCV 89.2 fL (80.0-100.0); Mean Platelet Volume 6.9; Platelet Count 585 k/uL (150-450); RBC 3.54 m/uL (3.80-5.40); RDW 13.1 % (11.5-15.5); WBC 13.9 k/uL (3.8-10.6)
[2021-10-03 12:32] LABS: African American GFR (CKD) >90 (>60 ml/min/1.73 sqM); Anion Gap 7 mmol/L; Blood Urea Nitrogen 3 mg/dL (7-17); Calcium 8.3 mg/dL (8.4-10.2); Carbon Dioxide 30 mmol/L (22-30); Chloride 100 mmol/L (98-107); Glucose 98 mg/dL (74-99); Non-African American GFR(CKD) >90 (>60 ml/min/1.73 sqM); Potassium 3.8 mmol/L (3.5-5.1); Sodium 137 mmol/L (137-145)
--- NOTE | 2021-10-03 13:38 | P.PN ---
Subjective Progress Note Date: 10/03/21 Principal diagnosis: C. diff diarrhea Patient states that her diarrhea is almost resolved. She says that she's not had a bowel movement in the past 24 hours. She says that she still having some abdominal pain. She says that her nausea is improving. She is able to tolerate her diet. 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 diff colitis -Resume oral vancomycin please continue for a total of 15 days since patient had severe symptoms (day 7). -Blood cultures negative. Stool cultures are negative -IV fluids -Contact isolation -WBC elevated this morning -Patient's diarrhea is improving Acute appendicitis? -Repeat computed tomography scan shows evidence of appendicitis -Defer surgery to primary team -Resume IV cefepime Lower GI bleed likely due to colitis Acute blood loss anemia -Continue to trend CBC -> hemoglobin is stable this morning -Gen. surgery following Hyponatremia secondary to above -Resolved Hypokalemia -Replete as needed Chronic Asthma alpha antitrypsin deficiency -Stable -Resume home meds DVT prophylaxis She is low risk, ambulatory
[2021-10-03] MEDS ORDERED: ACETAMINOPHEN TAB 325 MG TAB PO STA (20:36)
[2021-10-04] MEDS: VANCOMYCIN ORAL SOLUTION 250 MG/5 ML BOTTLE PO SCH ×2 (04:49→10:04)
[2021-10-04] MEDS: SODIUM CHLORIDE 0.9% 1,000 ML IV SCH ×3 (04:52→20:46)
[2021-10-04] MEDS: ONDANSETRON 4 MG/2 ML VIAL IVP PRN (05:28)
[2021-10-04] MEDS: HEPARIN SODIUM,PORCINE/PF 5,000 UNIT/0.5 ML SYRINGE SQ SCH ×2 (08:30→20:46)
[2021-10-04] MEDS: CEFEPIME 1 GM in SODIUM CHLORIDE 0.9% 50 ML IVPB SCH (08:30)
[2021-10-04] MEDS: PANTOPRAZOLE 40 MG/10 ML VIAL IVP SCH (08:30)
--- NOTE | 2021-10-04 11:36 | P.PN ---
Subjective Progress Note Date: 10/04/21 Patient is a 41 yo CF with asthma and prior chornic diarrhea who was admitted for diarreha and found to have C diff. Patient seen and examined at bedside. She started have BM again at 6:30pm last night. She had about 7 between then and 6 am this morning. No bowel movements in the last 3 hours, still with RLQ pain. wants to go home. Tolerating diet General: nontoxic, no distress, appears at stated age Derm: warm, dry Head: atraumatic, normocephalic, symmetric Eyes: EOMI, no lid lag, anicteric sclera Mouth: no lip lesion, mucus membranes moist Cardiovascular: S1S2 reg, no murmur, positive posterior tibial pulse bilateral, Lungs: CTA bilateral, no rhonchi, no rales , no accessory muscle use Abdominal: soft, +tender to palpation RLQ, no guarding, no appreciable organomegaly Ext: no gross muscle atrophy, no edema, no contractures Neuro: CN II-XI grossly intact, no focal neuro deficits Psych: Alert, oriented, appropriate affect Assessment/Plan: Acute C diff colitis with appendicitis Lower GI bleed due to C diff - stool culture negative, C diff assay + - stop cefepime - Continue with oral vanco increased to 500 mg QID will complete therapy on 10/14. Would discharge home on 125mg as patient had severe c diff and not fuliment. However 500 mg is reasonable given combination with cefepime - surgery recs - monitor BM till after lunch today Hyponatremia, Resolved Hypokalemia, resolved Chronic Asthma alpha antitrypsin deficiency Anticipate home this afternoon Objective - Vital Signs Vital signs: Vital Signs Temp 98.2 F 10/04/21 06:57 Pulse 83 10/04/21 06:57 Resp 18 10/04/21 06:57 BP 146/68 10/04/21 06:57 Pulse Ox 95 10/04/21 06:57 FiO2 Intake & Output 10/03/21 10/04/21 10/04/21 18:59 06:59 18:59 Intake Total 330 0 Balance 330 0 Intake: Oral 330 0 Other: Voiding Method Toilet # Voids 1 0 - Labs CBC & Chem 7: 10/03/21 11:59 10/03/21 11:59 Labs: Abnormal Lab Results - Last 24 Hours (Table) 10/03/21 10/03/21 Range/Units 11:59 11:59 WBC 13.9 H (3.8-10.6) k/uL RBC 3.54 L (3.80-5.40) m/uL Hgb 10.5 L (11.4-16.0) gm/dL Hct 31.6 L (34.0-46.0) % Plt Count 585 H (150-450) k/uL BUN 3 L (7-17) mg/dL Calcium 8.3 L (8.4-10.2) mg/dL Microbiology - Last 24 Hours (Table) 09/25/21 20:35 Stool Culture - Final Stool
[2021-10-04] MEDS: VANCOMYCIN 125 MG CAPSULE PO SCH ×3 (13:25→20:46)
[2021-10-04] MEDS ORDERED: ACETAMINOPHEN TAB 325 MG TAB PO PRN (16:59)
--- NOTE | 2021-10-04 17:34 | P.PN ---
Progress Note - Text Progress Note Date: 10/04/21 Patient completes increased diarrhea today. She states her pain is stable. On exam vital signs are stable. Abdomen soft. Resolving C. diff colitis. Patient did receive supportive care. Despite discharged home hopefully tomorrow.
[2021-10-05 02:45] VITALS: RESP 18
[2021-10-05] MEDS: SODIUM CHLORIDE 0.9% 1,000 ML IV SCH (05:47)
[2021-10-05 07:16] VITALS: BP 123/73; PULSE 80; TEMP 98
[2021-10-05] MEDS: VANCOMYCIN 125 MG CAPSULE PO SCH ×2 (08:16→13:36)
[2021-10-05] MEDS: PANTOPRAZOLE 40 MG/10 ML VIAL IVP SCH (08:16)
[2021-10-05] MEDS: HEPARIN SODIUM,PORCINE/PF 5,000 UNIT/0.5 ML SYRINGE SQ SCH (08:16)
--- NOTE | 2021-10-05 08:54 | P.PN ---
Subjective Progress Note Date: 10/05/21 Patient is a 41 yo CF with asthma and prior chornic diarrhea who was admitted for diarreha and found to have C diff. Patient seen and examined at bedside. only 2 bowl movements since 10 am yesterd ay morning. She is feeling better and wants to go home. Continues with some intermittent nausea. Also feels like her asthma is getting worse. She has been off her pulmicort for 1 month. wants to go home. Tolerating diet General: nontoxic, no distress, appears at stated age Derm: warm, dry Head: atraumatic, normocephalic, symmetric Eyes: EOMI, no lid lag, anicteric sclera Mouth: no lip lesion, mucus membranes moist Cardiovascular: S1S2 reg, no murmur, positive posterior tibial pulse bilateral, Lungs: CTA bilateral, no rhonchi, no rales , no accessory muscle use Abdominal: soft, +tender to palpation RLQ, no guarding, no appreciable organomegaly Ext: no gross muscle atrophy, no edema, no contractures Neuro: CN II-XI grossly intact, no focal neuro deficits Psych: Alert, oriented, appropriate affect Assessment/Plan: Acute C diff colitis with appendicitis Lower GI bleed due to C diff - stool culture negative, C diff assay + - stop cefepime - Vanco 125mg 4 times daily X 10 days since all otehr antibiotics completed. RX sent to [facility] - surgery recs - Anticipate home today - off work X 1 week. - d/w patient indications to return to hospital, resume probiotics once abx comp leted. Asthma - resume pulmicort - use albuterol 4 times daily for the next three days and then resume as needed Hyponatremia, Resolved Hypokalemia, resolved alpha antitrypsin deficiency Anticipate discharge today. Info added to discharge tab. Objective - Vital Signs Vital signs: Vital Signs Temp 98 F 10/05/21 07:14 Pulse 80 10/05/21 07:14 Resp 18 10/05/21 07:14 BP 123/73 10/05/21 07:14 Pulse Ox 94 L 10/05/21 07:14 FiO2 Intake & Output 10/04/21 10/05/21 10/05/21 18:59 06:59 18:59 Intake Total 240 120 Balance 240 120 Intake: Oral 240 120 Other: Voiding Method Toilet # Voids 1 3 # Bowel Movements 2 - Labs CBC & Chem 7: 10/03/21 11:59 10/03/21 11:59 Labs: Microbiology - Last 24 Hours (Table) 09/25/21 20:35 Stool Culture - Final Stool
[2021-10-05 11:12] VITALS: BMI 25.0
--- NOTE | 2021-10-05 12:28 | P.DS ---
Providers Date of admission: 09/28/21 18:28 Expected date of discharge: 10/05/21 Attending physician: Blair Grullon Consults: 09/26/21 09:53 Consult Physician Routine Consulting Provider: Kecia Daniels Consult Reason/Comments: Medical management Do you want consulting provider notified?: Yes Primary care physician: Mo Smith Alysha Lds Hospital Course: discharge diagnosis 1. C. diff colitis 2. Possible appendicitis managed conservatively Hospital course This is a 41-year-old female presented with abdominal pain across the lower abdomen. Her computed tomography scan had shown that there was appendicolith. Tip of the appendix is slightly thickened. No significant inflammatory reaction in the adjacent fat. Mild appendicitis however is not excluded. Patient initially started on IV antibiotics. She was then found to have C. diff colitis. The initial surgery was canceled due to the active C. diff colitis. She underwent C. diff colitis treatment and had improvement in her diarrhea. Her abdominal pain is improving as well. The pain on the left lower quadrant has resolved. Right lower quadrant pain has decreased. She is having regular bowel movements. Tolerating regular diet. She also had a repeat CAT scan during this admission that continued to show some inflammation and concerns for possible appendicitis. Patient was treated for both an appendicitis and C. diff colitis. Her antibiotic for appendicitis was discontinued yesterday. Patient's present status was managed conservatively. Again patient's symptoms have improved. Medicine service has cleared her for discharge. She'll continue oral vancomycin treatment to complete treatment for her C. diff colitis. She'll follow-up with Dr. grullon in 1 week for further evaluation regarding if surgical intervention needed regarding the appendicitis. Patient is stable for discharge. Please refer to chart for any further details. 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 Signing provider agrees with the documented findings, assessment, and plan of care. Patient Condition at Discharge: Stable Plan - Discharge Summary Discharge Rx Participant: No New Discharge Prescriptions: New Ondansetron Odt [Zofran Odt] 4 mg PO Q8HR PRN #30 tab PRN Reason: Nausea Vancomycin 125 mg PO QID #35 cap Continue Albuterol Inhaler [Ventolin Hfa Inhaler] 2 puff INHALATION RT-Q4H PRN PRN Reason: Shortness Of Breath Multivitamins, Thera [Multivitamin (formulary)] 1 tab PO DAILY [id number] 1 tab PO DAILY Lactobacillus Acidophilus [Florajen Acidophilus] 2 cap PO DAILY Discontinued Famotidine [Pepcid] 20 mg PO BID cefUROXime axetiL [Ceftin] 500 mg PO DIRECTED No Action Fluconazole [Diflucan] 150 mg PO TH Discharge Medication List Albuterol Inhaler [Ventolin Hfa Inhaler] 2 puff INHALATION RT-Q4H PRN 09/26/21 [History] Fluconazole [Diflucan] 150 mg PO TH 09/26/21 [History] Lactobacillus Acidophilus [Florajen Acidophilus] 2 cap PO DAILY 09/26/21 [Hi story] Multivitamins, Thera [Multivitamin (formulary)] 1 tab PO DAILY 09/26/21 [History] [id number] 1 tab PO DAILY 09/26/21 [History] Ondansetron Odt [Zofran Odt] 4 mg PO Q8HR PRN #30 tab 10/05/21 [Rx] Vancomycin 125 mg PO QID #35 cap 10/05/21 [Rx] Follow up Appointment(s)/Referral(s): Mo Encarnacion MD [Primary Care Provider] - 1-2 days Blair Grullon MD [STAFF PHYSICIAN] - 1 Week Patient Instructions/Handouts: Low Fiber Diet (DC), C. Diff (Clostridioides Difficile) Infection (DC) Activity/Diet/Wound Care/Special Instructions: Activity: as tolerated Diet: low fiber, bland and advance as tolerated Special Instructions Use albuterol inhaler 4 times daily for 3 days and then resume as needed, resume pulmicort. Resume Florajen once abx completed. Hold on taking Pepcid until completed treatment for C.diff Discharge/Stand Alone Forms: Work/School Release / Restrict Discharge Disposition: HOME SELF-CARE
[2021-10-05] MEDS: SCOPOLAMINE 1 MG/72 HR PATCH TRANSDERM SCH (13:36)
== END 2021-10-05 14:04 | disposition home or self-care (01) | DRG 372 ==
LOC: EC 18:34 → 6NMEDSUR 09-26 00:28 → OBSVTOIN 09-28 18:28
PROVIDERS: ADMIT Surgery; ATTEND Surgery
DX: A04.72 Enterocolitis due to Clostridium difficile, not specified as recurrent (principal); D62 Acute posthemorrhagic anemia; K35.80 Unspecified acute appendicitis; E87.1 Hypo-osmolality and hyponatremia; K92.2 Gastrointestinal hemorrhage, unspecified; K76.0 Fatty (change of) liver, not elsewhere classified; J45.909 Unspecified asthma, uncomplicated; E88.01 Alpha-1-antitrypsin deficiency; R16.0 Hepatomegaly, not elsewhere classified; R00.0 Tachycardia, unspecified; K21.9 Gastro-esophageal reflux disease without esophagitis; E86.0 Dehydration; K38.1 Appendicular concretions; E87.6 Hypokalemia; K44.9 Diaphragmatic hernia without obstruction or gangrene; Z79.899 Other long term (current) drug therapy; Z80.51 Family history of malignant neoplasm of kidney; Z80.42 Family history of malignant neoplasm of prostate; Z86.69 Personal history of other diseases of the nervous system and sense organs
CPT/HCPCS: 36415; 74018; 74177; 80048; 80053; 81001; 83605; 83690; 83735; 84132; 84703; 85025; 85027; 87040; 87045; 87046; 87324

== ENCOUNTER → 2021-10-07 | Outpatient (CLI) | payer BC ==
--- NOTE | 2021-10-07 23:53 | MR ---
EXAMINATION TYPE: MR brain and iac wo/w con DATE OF EXAM: 10/07/2021 COMPARISON: None HISTORY: Disorder of unspecified acoustic nerve, vertigo CONTRAST: Standard multiplanar, multisequence MRI departmental protocol images were obtained without contrast a nd with 7 ml mL intravenous Gadavist gadolinium contrast. Multiplanar multi echo imaging of the brain without and with IV contrast. Ventricles and sulci appear normal. There is no mass effect or midline shift. No sign of intracranial hemorrhage. Diffusion images show no evidence of an acute infarct. Sella turcica appears normal. Cor pus callosum appears normal. Brainstem is intact. Simon and white matter structures have a normal sign al pattern. No evidence of cerebral edema. No evidence of posterior fossa mass. There is no evidence of mastoiditis. Internal auditory canals appear normal. No evidence of cerebellopontine angle mass. Acoustic nerve an d vestibular nerve appear normal. There is no pathologic enhancement. There is normal enhancement of the venous sinuses. IMPRESSION: Normal MR scan of the brain. Normal internal auditory canals and posterior fossa.
== END | disposition home or self-care (01) ==
LOC: RADMRIMAIN 20:53
PROVIDERS: ATTEND Nurse Practitioner Family
DX: H93.3X9 Disorders of unspecified acoustic nerve (principal)
CPT/HCPCS: 70553; A9585

== ENCOUNTER 2021-10-10 16:14 | Inpatient (IN) | payer BC ==
[2021-10-10] MEDS ORDERED: ONDANSETRON 4 MG/2 ML VIAL IVP STA (18:36)
[2021-10-10] MEDS ORDERED: HYDROmorphone 0.5 MG/0.5 ML SYRINGE IVP STA (18:36)
[2021-10-10] MEDS ORDERED: SODIUM CHLORIDE 0.9% 1,000 ML IV ONE (18:36)
[2021-10-10 19:09] LABS: Basophils # (A) 0.1 k/uL (0-0.2); Basophils % (A) 0 %; Eosinophils # (A) 0.1 k/uL (0-0.7); Eosinophils % (A) 1 %; HCT 34.5 % (34.0-46.0); HGB 11.6 gm/dL (11.4-16.0); Lymphocytes # (A) 1.4 k/uL (1.0-4.8); Lymphocytes % (A) 8 %; MCH 29.7 pg (25.0-35.0); MCHC 33.5 g/dL (31.0-37.0); MCV 88.7 fL (80.0-100.0); Mean Platelet Volume 6.7; Monocytes # (A) 0.9 k/uL (0-1.0); Monocytes % (A) 5 %; Neutrophils # (A) 15.2 k/uL (1.3-7.7); Neutrophils % (A) 84 %; Platelet Count 608 k/uL (150-450); RDW 13.1 % (11.5-15.5)
[2021-10-10 19:17] LABS: Appearance,Urine Clear (Clear); Bacteria,Urine Occasional /hpf; Bilirubin,Urine Negative (Negative); Blood,Urine Small (Negative); Color,Urine Colorless; Glucose,Urine (UA) Negative (Negative); Ketones,Urine Negative (Negative); Leukocyte Esterase,Urine Negative (Negative); Nitrite,Urine Negative (Negative); PH, Urine 6.5 (5.0-8.0); Protein,Urine Negative (Negative); RBC,Urine 1 /hpf (0-5); Specific Gravity,Urine 1.002 (1.001-1.035); Squamous Epithelial Cell,Urine <1 /hpf (0-4); Urobilinogen,Urine <2.0 mg/dL (<2.0); WBC,Urine 1 /hpf (0-5)
[2021-10-10 19:28] LABS: ALT 54 U/L (4-34); AST 34 U/L (14-36); African American GFR (CKD) >90 (>60 ml/min/1.73 sqM); Albumin 4.3 g/dL (3.5-5.0); Alkaline Phosphatase 211 U/L (38-126); Anion Gap 13 mmol/L; Blood Urea Nitrogen 5 mg/dL (7-17); Calcium 9.4 mg/dL (8.4-10.2); Carbon Dioxide 24 mmol/L (22-30); Chloride 99 mmol/L (98-107); Glucose 104 mg/dL (74-99); Lipase 93 U/L (23-300); Non-African American GFR(CKD) >90 (>60 ml/min/1.73 sqM); Potassium 4.1 mmol/L (3.5-5.1); Sodium 136 mmol/L (137-145); Total Bilirubin 0.7 mg/dL (0.2-1.3); Total Protein 7.8 g/dL (6.3-8.2)
--- NOTE | 2021-10-10 20:16 | CT ---
EXAMINATION TYPE: CT abdomen pelvis w con CT DLP: 795.8 mGycm, Automated exposure control for dose reduction was used. DATE OF EXAM: 10/10/2021 7:37 PM COMPARISON: CT abdomen pelvis most recent from CT abdomen 09/19/2021. CLINICAL INDICATION:Female, 41 years old with history of abdominal pain; abdominal pain and fever. re cent hospitalization for C-DIFF TECHNIQUE: Standard CT of the abdomen and pelvis following the administration of 100 cc of Isovue 3 00 IV contrast material. Coronal and sagittal reformats were performed. FINDINGS: LOWER CHEST: Unremarkable ABDOMEN LIVER: Unremarkable GALLBLADDER AND BILE DUCTS: Unremarkable. PANCREAS: Unremarkable. SPLEEN: Unremarkable. ADRENAL GLANDS: Unremarkable. KIDNEYS AND URETERS: No evidence of hydronephrosis or renal calculus. The ureters are unremarkable. PELVIS BLADDER: Unremarkable REPRODUCTIVE: Unremarkable. ABDOMEN & PELVIS STOMACH AND BOWEL: There is increased inflammation changes around the appendix with new small fluid c ollection measuring 3.2 x 1.8 cm immediately adjacent to the appendix and appears to communication wi th the appendix lumen. There is appendicolith redemonstrated. Appendicolith measures up to 9 mm. No e vidence of bowel obstruction. PERITONEUM: No evidence of pneumoperitoneum. VASCULATURE: No evidence of aortic aneurysm. MUSCULOSKELETAL: No acute osseous abnormalities LYMPH NODES: Multiple right lower quadrant enlarged reactive lymph nodes are present. SOFT TISSUE/ABDOMINAL WALL: Unremarkable IMPRESSION: Interval perforation of prior appendicitis with suspected early abscess formation which appears to co mmunicate with the appendix lumen. Persistent 9 mm appendicolith remains present. No evidence of pneu moperitoneum.
[2021-10-10] MEDS ORDERED: NALOXONE 0.4 MG/ML 1 ML VIAL IV PRN ×2 (21:06→22:25)
[2021-10-10] MEDS ORDERED: ACETAMINOPHEN TAB 325 MG TAB PO PRN ×2 (21:06→22:25)
[2021-10-10] MEDS ORDERED: HYDROmorphone 0.5 MG/0.5 ML SYRINGE IVP PRN (21:06)
--- NOTE | 2021-10-10 21:06 | ED ---
General Adult HPI - General Chief complaint: Fever Stated complaint: fever Time Seen by Provider: 10/10/21 17:47 Source: patient Mode of arrival: ambulatory Limitations: no limitations - History of Present Illness Initial comments: 41-year-old female with past medical history of asthma presents emergency Department with continued abdominal pain. Patient was recently hospitalized for 10 days. She came in with diarrhea and abdominal pain. She was found to have C. diff for which she was placed on antibiotics. She continues to take vancomycin at home. Patient was also found to have questionable signs of appendicitis. She had improvement in her pain, fevers and white blood cell count and therefore she was discharged home. She reports that she originally did have improvement in her symptoms however her abdominal pain is back and worse. Located across the lower abdomen. No changes in her urination to include dysuria, hematuria or complete voiding. No vaginal bleeding or discharge. States that her diarrhea has been more formed however continues to go 4 times a day. This morning she awoke and had a fever. She did take Tylenol around 10:00. She called Dr. Stone's office to let him know that she was having fevers and was directed to come back to the ER for further evaluation. No other alleviating, precipitating or modifying factors - Related Data Home Medications Medication Instructions Recorded Confirmed Albuterol Inhaler [Ventolin Hfa 2 puff INHALATION RT-Q4H PRN 09/26/21 10/10/21 Inhaler] Fluconazole [Diflucan] 150 mg PO TH 09/26/21 10/10/21 Lactobacillus Acidophilus 2 cap PO DAILY 09/26/21 10/10/21 [Florajen Acidophilus] Multivitamins, Thera [Multivitamin 1 tab PO DAILY 09/26/21 10/10/21 (formulary)] Iiagjj-Ga-Tc 1 tab PO DAILY 09/26/21 10/10/21 Budesonide [Pulmicort Flexhaler] 1 puff INHALATION RT-BID 10/10/21 10/10/21 Previous Rx's Medication Instructions Recorded Ondansetron Odt [Zofran Odt] 4 mg PO Q8HR PRN #30 tab 10/05/21 Vancomycin 125 mg PO QID #35 cap 10/05/21 Allergies Allergy/AdvReac Type Severity Reaction Status Date / Time No Known Allergies Allergy Verified 10/10/21 20:38 Review of Systems ROS Statement: Those systems with pertinent positive or pertinent negative responses have been documented in the HPI. ROS Other: All systems not noted in ROS Statement are negative. Past Medical History Past Medical History: Asthma Additional Past Medical History / Comment(s): problems with diarrhea. Alpha-1 antitrypsin deficiency History of Any Multi-Drug Resistant Organisms: None Reported, C-DIFF Additional Past Surgical History / Comment(s): Lasik, wisdom teeth Past Anesthesia/Blood Transfusion Reactions: No Reported Reaction Past Psychological History: No Psychological Hx Reported Smoking Status: Never smoker Past Alcohol Use History: None Reported Past Drug Use History: None Reported - Past Family History Mother Family Medical History: No Reported History Father Family Medical History: Cancer Additional Family Medical History / Comment(s): Kidney, Prostate General Exam Limitations: no limitations General appearance: alert, in no apparent distress Head exam: Present: atraumatic, normocephalic, normal inspection Eye exam: Present: normal appearance, PERRL, EOMI. Absent: scleral icterus, conjunctival injection, periorbital swelling ENT exam: Present: normal exam, mucous membranes moist Neck exam: Present: normal inspection. Absent: tenderness, meningismus, ly mphadenopathy Respiratory exam: Present: normal lung sounds bilaterally. Absent: respiratory distress, wheezes, rales, rhonchi, stridor Cardiovascular Exam: Present: normal rhythm, tachycardia, normal heart sounds. Absent: systolic murmur, diastolic murmur, rubs, gallop, clicks GI/Abdominal exam: Present: soft, tenderness (Right lower quadrant), guarding, normal bowel sounds. Absent: distended, rebound, rigid Extremities exam: Present: normal inspection, full ROM, normal capillary refill. Absent: tenderness, pedal edema, joint swelling, calf tenderness Back exam: Present: normal inspection Neurological exam: Present: alert, oriented X3, CN II-XII intact Psychiatric exam: Present: normal affect, normal mood Skin exam: Present: warm, dry, intact, normal color. Absent: rash Course Vital Signs 10/10/21 10/10/21 16:59 21:14 Temperature 98.6 F 98.2 F Pulse Rate 120 H 105 H Respiratory 18 18 Rate Blood Pressure 117/60 132/81 O2 Sat by Pulse 96 96 Oximetry Medical Decision Making - Medical Decision Making Upon arrival patient is placed into room 32. A thorough history and physical exam was performed. IV access is established. Patient was given a liter bolus of normal saline, 4 mg of Zofran and 25 mg of Dilaudid. Laboratory studies are conducted and reviewed. Patient does have increase in her white blood cell count of 18. Urinalysis is symmetric occasional bacteria. She is now negative for C. diff at this time. I performed a CT the patient's abdomen and pelvis which demonstrates ruptured appendix with early abscess formation. I did call and speak with Dr. Stone. He will take the patient to the OR [facility]. She is placed on Zosyn and patient will be admitted to his service. - Lab Data Result diagrams: 10/10/21 18:52 10/10/21 18:52 Lab Results 10/10/21 10/10/21 10/10/21 Range/Units 18:52 18:52 18:52 WBC 18.0 H (3.8-10.6) k/uL RBC 3.90 (3.80-5.40) m/uL Hgb 11.6 (11.4-16.0) gm/dL Hct 34.5 (34.0-46.0) % MCV 88.7 (80.0-100.0) fL MCH 29.7 (25.0-35.0) pg MCHC 33.5 (31.0-37.0) g/dL RDW 13.1 (11.5-15.5) % Plt Count 608 H (150-450) k/uL MPV 6.7 Neutrophils % 84 % Lymphocytes % 8 % Monocytes % 5 % Eosinophils % 1 % Basophils % 0 % Neutrophils # 15.2 H (1.3-7.7) k/uL Lymphocytes # 1.4 (1.0-4.8) k/uL Monocytes # 0.9 (0-1.0) k/uL Eosinophils # 0.1 (0-0.7) k/uL Basophils # 0.1 (0-0.2) k/uL Sodium 136 L (137-145) mmol/L Potassium 4.1 (3.5-5.1) mmol/L Chloride 99 (98-107) mmol/L Carbon Dioxide 24 (22-30) mmol/L Anion Gap 13 mmol/L BUN 5 L (7-17) mg/dL Creatinine 0.58 (0.52-1.04) mg/dL Est GFR (CKD-EPI)AfAm >90 (>60 ml/min/1.73 sqM) Est GFR (CKD-EPI)NonAf >90 (>60 ml/min/1.73 sqM) Glucose 104 H (74-99) mg/dL Plasma Lactic Acid Philip (0.7-2.0) mmol/L Calcium 9.4 (8.4-10.2) mg/dL Total Bilirubin 0.7 (0.2-1.3) mg/dL AST 34 (14-36) U/L ALT 54 H (4-34) U/L Alkaline Phosphatase 211 H (38-126) U/L Total Protein 7.8 (6.3-8.2) g/dL Albumin 4.3 (3.5-5.0) g/dL Lipase 93 (23-300) U/L Urine Color Colorless Urine Appearance Clear (Clear) Urine pH 6.5 (5.0-8.0) Ur Specific [place] 1.002 (1.001-1.035) Urine Protein Negative (Negative) Urine Glucose (UA) Negative (Negative) Urine Ketones Negative (Negative) Urine Blood Small H (Negative) Urine Nitrite Negative (Negative) Urine Bilirubin Negative (Negative) Urine Urobilinogen <2.0 (<2.0) mg/dL Ur Leukocyte Esterase Negative (Negative) Urine RBC 1 (0-5) /hpf Urine WBC 1 (0-5) /hpf Ur Squamous Epith Cells <1 (0-4) /hpf Urine Bacteria Occasional H (None) /hpf Urine HCG, Qual (Not Detectd) Stool Occult Blood (Negative) C. difficile (EIA) Intrp (Negative) 10/10/21 10/10/21 10/10/21 Range/Units 18:52 18:52 18:52 WBC (3.8-10.6) k/uL RBC (3.80-5.40) m/uL Hgb (11.4-16.0) gm/dL Hct (34.0-46.0) % MCV (80.0-100.0) fL MCH (25.0-35.0) pg MCHC (31.0-37.0) g/dL RDW (11.5-15.5) % Plt Count (150-450) k/uL MPV Neutrophils % % Lymphocytes % % Monocytes % % Eosinophils % % Basophils % % Neutrophils # (1.3-7.7) k/uL Lymphocytes # (1.0-4.8) k/uL Monocytes # (0-1.0) k/uL Eosinophils # (0-0.7) k/uL Basophils # (0-0.2) k/uL Sodium (137-145) mmol/L Potassium (3.5-5.1) mmol/L Chloride (98-107) mmol/L Carbon Dioxide (22-30) mmol/L Anion Gap mmol/L BUN (7-17) mg/dL Creatinine (0.52-1.04) mg/dL Est GFR (CKD-EPI)AfAm (>60 ml/min/1.73 sqM) Est GFR (CKD-EPI)NonAf (>60 ml/min/1.73 sqM) Glucose (74-99) mg/dL Plasma Lactic Acid Philip 0.8 (0.7-2.0) mmol/L Calcium (8.4-10.2) mg/dL Total Bilirubin (0.2-1.3) mg/dL AST (14-36) U/L ALT (4-34) U/L Alkaline Phosphatase (38-126) U/L Total Protein (6.3-8.2) g/dL Albumin (3.5-5.0) g/dL Lipase (23-300) U/L Urine Color Urine Appearance (Clear) Urine pH (5.0-8.0) Ur Specific [place] (1.001-1.035) Urine Protein (Negative) Urine Glucose (UA) (Negative) Urine Ketones (Negative) Urine Blood (Negative) Urine Nitrite (Negative) Urine Bilirubin (Negative) Urine Urobilinogen (<2.0) mg/dL Ur Leukocyte Esterase (Negative) Urine RBC (0-5) /hpf Urine WBC (0-5) /hpf Ur Squamous Epith Cells (0-4) /hpf Urine Bacteria (None) /hpf Urine HCG, Qual (Not Detectd) Stool Occult Blood Negative (Negative) C. difficile (EIA) Intrp Negative (Negative) 10/10/21 Range/Units 18:52 WBC (3.8-10.6) k/uL RBC (3.80-5.40) m/uL Hgb (11.4-16.0) gm/dL Hct (34.0-46.0) % MCV (80.0-100.0) fL MCH (25.0-35.0) pg MCHC (31.0-37.0) g/dL RDW (11.5-15.5) % Plt Count (150-450) k/uL MPV Neutrophils % % Lymphocytes % % Monocytes % % Eosinophils % % Basophils % % Neutrophils # (1.3-7.7) k/uL Lymphocytes # (1.0-4.8) k/uL Monocytes # (0-1.0) k/uL Eosinophils # (0-0.7) k/uL Basophils # (0-0.2) k/uL Sodium (137-145) mmol/L Potassium (3.5-5.1) mmol/L Chloride (98-107) mmol/L Carbon Dioxide (22-30) mmol/L Anion Gap mmol/L BUN (7-17) mg/dL Creatinine (0.52-1.04) mg/dL Est GFR (CKD-EPI)AfAm (>60 ml/min/1.73 sqM) Est GFR (CKD-EPI)NonAf (>60 ml/min/1.73 sqM) Glucose (74-99) mg/dL Plasma Lactic Acid Philip (0.7-2.0) mmol/L Calcium (8.4-10.2) mg/dL Total Bilirubin (0.2-1.3) mg/dL AST (14-36) U/L ALT (4-34) U/L Alkaline Phosphatase (38-126) U/L Total Protein (6.3-8.2) g/dL Albumin (3.5-5.0) g/dL Lipase (23-300) U/L Urine Color Urine Appearance (Clear) Urine pH (5.0-8.0) Ur Specific [place] (1.001-1.035) Urine Protein (Negative) Urine Glucose (UA) (Negative) Urine Ketones (Negative) Urine Blood (Negative) Urine Nitrite (Negative) Urine Bilirubin (Negative) Urine Urobilinogen (<2.0) mg/dL Ur Leukocyte Esterase (Negative) Urine RBC (0-5) /hpf Urine WBC (0-5) /hpf Ur Squamous Epith Cells (0-4) /hpf Urine Bacteria (None) /hpf Urine HCG, Qual Not Detected (Not Detectd) Stool Occult Blood (Negative) C. difficile (EIA) Intrp (Negative) Disposition Clinical Impression: Ruptured appendix, Leukocytosis Disposition: ADMITTED IP TO THIS HOSP Condition: Stable Is patient prescribed a controlled substance at d/c from ED?: No Decision to Admit Reason: Admit from EC Decision Date: 10/10/21 Decision Time: 21:06
[2021-10-10] MEDS ORDERED: PIPERACILLIN-TAZOBACTAM 3.375 GM in SODIUM CHLORIDE 0.9% 100 ML IVPB ONE (21:15)
[2021-10-10] MEDS ORDERED: IV FLUID CONTINUATION 1,000 ML IV ONE (21:32)
[2021-10-10] MEDS ORDERED: BUPIVACAIN-EPI 0.25%-1:200,000 30 ML VIAL SQ ONE ×2 (21:33→22:06)
--- NOTE | 2021-10-10 21:43 | P.GSHP ---
History of Present Illness H&P Date: 10/10/21 Chief Complaint: Abdominal pain, fever Is a 41-year-old female who presents to the emergency complaints of nausea abdominal pain and fever. Patient's mother contact me as afternoon. She had recently been in the hospital and being treated for C. diff colitis. Patient will receive her pain had increased last night. And she had a fever last night. I suggested she come in for a CAT scan of the abdomen. Her CAT scan suggestive of appendicitis with possible perforation or abscess. The patient has been on antibiotic therapy for C. diff colitis. She states she is still having 4-5 liquid bowel movements per day. Past Medical History Past Medical History: Asthma Additional Past Medical History / Comment(s): problems with diarrhea. Alpha-1 antitrypsin deficiency History of Any Multi-Drug Resistant Organisms: None Reported, C-DIFF Additional Past Surgical History / Comment(s): Lasik, wisdom teeth Past Anesthesia/Blood Transfusion Reactions: No Reported Reaction Past Psychological History: No Psychological Hx Reported Smoking Status: Never smoker Past Alcohol Use History: None Reported Past Drug Use History: None Reported - Past Family History Mother Family Medical History: No Reported History Father Family Medical History: Cancer Additional Family Medical History / Comment(s): Kidney, Prostate Medications and Allergies Home Medications Medication Instructions Recorded Confirmed Type Albuterol Inhaler [Ventolin Hfa 2 puff INHALATION RT-Q4H PRN 09/26/21 10/10/21 History Inhaler] Fluconazole [Diflucan] 150 mg PO TH 09/26/21 10/10/21 History Lactobacillus Acidophilus 2 cap PO DAILY 09/26/21 10/10/21 History [Florajen Acidophilus] Multivitamins, Thera [Multivitamin 1 tab PO DAILY 09/26/21 10/10/21 History (formulary)] [id number] 1 tab PO DAILY 09/26/21 10/10/21 History Ondansetron Odt [Zofran Odt] 4 mg PO Q8HR PRN #30 tab 10/05/21 10/10/21 Rx Vancomycin 125 mg PO QID #35 cap 10/05/21 10/10/21 Rx Budesonide [Pulmicort Flexhaler] 1 puff INHALATION RT-BID 10/10/21 10/10/21 History Allergies Allergy/AdvReac Type Severity Reaction Status Date / Time No Known Allergies Allergy Verified 10/10/21 20:38 Surgical - Exam Vital Signs Temp Pulse Resp BP Pulse Ox 98.6 F 120 H 18 117/60 96 10/10/21 16:59 10/10/21 16:59 10/10/21 16:59 10/10/21 16:59 10/10/21 16:59 - General well developed, well nourished, no distress - Eyes PERRL - ENT normal pinna - Neck no masses - Respiratory normal expansion - Cardiovascular Rhythm: regular - Abdomen Mild esophagitis, right lower quadrant tenderness Abdomen: soft Results - Labs 10/10/21 18:52 10/10/21 18:52 Abnormal Lab Results - Last 24 Hours (Table) 10/10/21 10/10/21 10/10/21 Range/Units 18:52 18:52 18:52 WBC 18.0 H (3.8-10.6) k/uL Plt Count 608 H (150-450) k/uL Neutrophils # 15.2 H (1.3-7.7) k/uL Sodium 136 L (137-145) mmol/L BUN 5 L (7-17) mg/dL Glucose 104 H (74-99) mg/dL ALT 54 H (4-34) U/L Alkaline Phosphatase 211 H (38-126) U/L Urine Blood Small H (Negative) Urine Bacteria Occasional H (None) /hpf Diabetes panel 10/10/21 Range/Units 18:52 Sodium 136 L (137-145) mmol/L Potassium 4.1 (3.5-5.1) mmol/L Chloride 99 (98-107) mmol/L Carbon Dioxide 24 (22-30) mmol/L BUN 5 L (7-17) mg/dL Creatinine 0.58 (0.52-1.04) mg/dL Glucose 104 H (74-99) mg/dL Calcium 9.4 (8.4-10.2) mg/dL AST 34 (14-36) U/L ALT 54 H (4-34) U/L Alkaline Phosphatase 211 H (38-126) U/L Total Protein 7.8 (6.3-8.2) g/dL Albumin 4.3 (3.5-5.0) g/dL Calcium panel 10/10/21 Range/Units 18:52 Calcium 9.4 (8.4-10.2) mg/dL Albumin 4.3 (3.5-5.0) g/dL Pituitary panel 10/10/21 Range/Units 18:52 Sodium 136 L (137-145) mmol/L Potassium 4.1 (3.5-5.1) mmol/L Chloride 99 (98-107) mmol/L Carbon Dioxide 24 (22-30) mmol/L BUN 5 L (7-17) mg/dL Creatinine 0.58 (0.52-1.04) mg/dL Glucose 104 H (74-99) mg/dL Calcium 9.4 (8.4-10.2) mg/dL Adrenal panel 10/10/21 Range/Units 18:52 Sodium 136 L (137-145) mmol/L Potassium 4.1 (3.5-5.1) mmol/L Chloride 99 (98-107) mmol/L Carbon Dioxide 24 (22-30) mmol/L BUN 5 L (7-17) mg/dL Creatinine 0.58 (0.52-1.04) mg/dL Glucose 104 H (74-99) mg/dL Calcium 9.4 (8.4-10.2) mg/dL Total Bilirubin 0.7 (0.2-1.3) mg/dL AST 34 (14-36) U/L ALT 54 H (4-34) U/L Alkaline Phosphatase 211 H (38-126) U/L Total Protein 7.8 (6.3-8.2) g/dL Albumin 4.3 (3.5-5.0) g/dL Assessment and Plan Plan: Acute appendicitis. We'll perform laparoscopic appendectomy
[2021-10-10] MEDS ORDERED: LACTATED RINGERS 1,000 ML IV ONE ×2 (21:54→22:25)
[2021-10-10] MEDS ORDERED: HYDROmorphone 0.5 MG/0.5 ML SYRINGE IVP ONE ×2 (22:41→23:09)
[2021-10-10] MEDS ORDERED: ONDANSETRON 4 MG/2 ML VIAL IVP ONE (22:42)
[2021-10-10] MEDS: MEPERIDINE 50 MG/ML SYRINGE IVP ONE ×2 (22:51→23:03)
[2021-10-11] MEDS: HYDROmorphone 1 MG/ML 1 ML SYRINGE IVP PRN ×4 (00:04→20:57)
[2021-10-11] MEDS: SODIUM CHLORIDE 0.9% 1,000 ML IV SCH ×4 (00:11→20:53)
[2021-10-11] MEDS: ONDANSETRON 4 MG/2 ML VIAL IVP PRN ×5 (00:52→20:56)
[2021-10-11] MEDS: PIPERACILLIN-TAZOBACTAM 3.375 GM in SODIUM CHLORIDE 0.9% 100 ML IVPB SCH ×3 (05:10→20:51)
[2021-10-11 07:18] LABS: Basophils # (A) 0.1 k/uL (0-0.2); Basophils % (A) 0 %; Eosinophils # (A) 0.1 k/uL (0-0.7); Eosinophils % (A) 0 %; HCT 31.2 % (34.0-46.0); HGB 10.5 gm/dL (11.4-16.0); Lymphocytes # (A) 1.2 k/uL (1.0-4.8); Lymphocytes % (A) 7 %; MCH 29.9 pg (25.0-35.0); MCHC 33.8 g/dL (31.0-37.0); MCV 88.6 fL (80.0-100.0); Monocytes # (A) 0.8 k/uL (0-1.0); Monocytes % (A) 5 %; Neutrophils # (A) 15.5 k/uL (1.3-7.7); Neutrophils % (A) 87 %; Platelet Count 521 k/uL (150-450); RBC 3.53 m/uL (3.80-5.40); RDW 12.9 % (11.5-15.5); WBC 17.8 k/uL (3.8-10.6)
[2021-10-11] MEDS: ENOXAPARIN 40 MG/0.4 ML SYRINGE SQ SCH (07:41)
[2021-10-11 07:57] LABS: African American GFR (CKD) >90 (>60 ml/min/1.73 sqM); Anion Gap 7 mmol/L; Blood Urea Nitrogen 5 mg/dL (7-17); Calcium 8.7 mg/dL (8.4-10.2); Carbon Dioxide 26 mmol/L (22-30); Chloride 102 mmol/L (98-107); Glucose 118 mg/dL (74-99); Non-African American GFR(CKD) >90 (>60 ml/min/1.73 sqM); Potassium 4.3 mmol/L (3.5-5.1); Sodium 135 mmol/L (137-145)
[2021-10-11] MEDS: KETOROLAC 15 MG/ML 1 ML VIAL IVP SCH ×3 (10:50→23:45)
[2021-10-11] MEDS ORDERED: SODIUM CHLORIDE 0.9% 1,000 ML IV ONE (11:16)
[2021-10-11] MEDS: ACETAMINOPHEN IV (For NPO) 1,000 MG in EMPTY BAG 1 BAG IVPB SCH ×3 (11:29→23:46)
--- NOTE | 2021-10-11 12:40 | P.OP ---
Date of Procedure: 10/10/21 Preoperative Diagnosis: Acute appendicitis with abscess Postoperative Diagnosis: Acute appendicitis with abscess Procedure(s) Performed: Laparoscopic appendectomy Anesthesia: KIA Surgeon: Blair Stone Estimated Blood Loss (ml): 5 Pathology: other (Appendix, fecalith) Condition: stable Disposition: PACU Description of Procedure: The patient's placed on the operating table in the supine position. The patient received general anesthesia. The abdomen was prepped and draped in the usual sterile fashion. The skin was anesthetized 1% local Xylocaine at the trocar sites. Using an 11 blade the skin was incised at the umbilicus. The umbilicus was grasped with a Oziel clamp and then a Veress needle was placed into the peritoneal cavity. Position of the Veress needle was confirmed with positive drop test. After adequate insufflation a 5 mm trocar was placed into the peritoneal cavity. The abdomen was further insufflated. And then the laparoscope was placed in the peritoneal cavity. Next a 5 mm trocar was placed in the midline suprapubic position. And then a 10 mm trocar was placed in the midline epigastric position. The patient was rotated with the right side up and in Trendelenburg. The appendix was visualized. The appendix appeared to be inflamed and adherent to the lateral abdominal wall. This was pointed is free. There was a small 2 cm abscess encountered. This was aspirated. The appendix was visualized. There appeared to be a fecalith present. This was removed. The appendiceal stump was dissected free. . The appendix was grasped and then using the Harmonic scissors the mesoappendix was divided. A PDS Endoloop was then placed around the base of the appendix. And then the appendix was divided using Harmonic scissors. The appendix was placed into an Endo Catch and brought out through the 10 mm trocar site. The abdomen was irrigated. There is no bleeding seen. The trochars withdrawn. The skin was closed interrupted 3-0 Monocryl suture. Dermabond dressing was applied. Patient was sent to recovery room in stable condition.
--- NOTE | 2021-10-11 13:38 | P.CONS ---
History of Present Illness - Reason for Consult Consult date: 10/11/21 med management - Chief Complaint diarrhea - History of Present Illness 41-year-old female who presents to the emergency complaints of nausea, diarrhea, abdominal pain and fever. Patient's mother contact me as afternoon. She had recently been in the hospital and was treated for C. diff colitis. She is still taking vanco, end date will be this sunday. Patient had increased pain last night in the abdomen, anthony in the right lower quadrant, also had worsening diarrhea and a fever. No dysuria, hematuria or frequency. No vaginal bleeding or discharge. She called Dr. Stone's office to let him know that she was having fevers and was directed to come back to the ER for further evaluation. CT abdomen was done and it showed appendicitis with perforated appendix and early abscess formation. Patient was admitted to surgery service, had appendectomy already. She is currently doing well. Still having abdominal pain however. Review of Systems Complete review of system performed. Pertinent positives per HPI, otherwise negative Past Medical History Past Medical History: Asthma Additional Past Medical History / Comment(s): problems with diarrhea. Alpha-1 antitrypsin deficiency History of Any Multi-Drug Resistant Organisms: None Reported, C-DIFF Year Discovered:: 09/26/2021 MDRO Source:: Cdiff Past Surgical History: Appendectomy Additional Past Surgical History / Comment(s): Lasik, wisdom teeth Past Anesthesia/Blood Transfusion Reactions: No Reported Reaction Past Psychological History: No Psychological Hx Reported Smoking Status: Never smoker Past Alcohol Use History: None Reported Past Drug Use History: None Reported - Past Family History Mother Family Medical History: No Reported History Father Family Medical History: Cancer Additional Family Medical History / Comment(s): Kidney, Prostate Medications and Allergies Home Medications Medication Instructions Recorded Confirmed Type Albuterol Inhaler [Ventolin Hfa 2 puff INHALATION RT-Q4H PRN 09/26/21 10/10/21 History Inhaler] Fluconazole [Diflucan] 150 mg PO TH 09/26/21 10/10/21 History Lactobacillus Acidophilus 2 cap PO DAILY 09/26/21 10/10/21 History [Florajen Acidophilus] Multivitamins, Thera [Multivitamin 1 tab PO DAILY 09/26/21 10/10/21 History (formulary)] Wjoeet-Vg-Rt 1 tab PO DAILY 09/26/21 10/10/21 History Ondansetron Odt [Zofran Odt] 4 mg PO Q8HR PRN #30 tab 10/05/21 10/10/21 Rx Vancomycin 125 mg PO QID #35 cap 10/05/21 10/10/21 Rx Budesonide [Pulmicort Flexhaler] 1 puff INHALATION RT-BID 10/10/21 10/10/21 History Allergies Allergy/AdvReac Type Severity Reaction Status Date / Time No Known Allergies Allergy Verified 10/10/21 20:38 Physical Exam Vitals: Vital Signs Temp Pulse Pulse Resp BP BP Pulse Ox 10/11/21 11:27 97.4 F L 100 17 98/59 94 L 10/11/21 05:19 98.3 F 93 16 102/64 94 L 10/11/21 04:26 101 H 18 108/65 93 L 10/11/21 02:51 89 18 104/65 92 L 10/11/21 02:21 94 18 102/63 10/11/21 02:06 96 18 108/64 94 L 10/11/21 01:36 99 18 109/66 10/11/21 01:21 101 H 18 112/68 93 L 10/11/21 01:06 96 18 113/68 93 L 10/11/21 00:51 98.2 F 103 H 18 120/71 93 L 10/11/21 00:36 92 18 115/71 93 L 10/11/21 00:21 93 18 113/71 92 L 10/11/21 00:06 91 18 116/71 92 L 10/10/21 23:55 18 10/10/21 23:45 98.4 F 98 16 108/66 93 L 10/10/21 23:41 98.4 F 95 18 102/57 92 L 10/10/21 23:15 84 16 114/56 99 10/10/21 23:00 84 16 122/58 99 10/10/21 22:45 92 16 125/59 99 10/10/21 22:33 97.8 F 105 H 16 123/58 99 10/10/21 21:14 98.2 F 105 H 18 132/81 96 10/10/21 16:59 98.6 F 120 H 18 117/60 96 Intake and Output 10/10/21 10/11/2122 22:59 06:59 14:59 Intake Total 1000 400 Output Total 5 50 40 Balance 995 350 -40 Intake: IV 1000 400 Output: Drainage 50 40 Abdomen 50 40 Estimated Blood Loss 5 Other: Voiding Method Toilet # Voids 2 Weight 70.307 kg 70.307 kg Constitutional: No acute distress, conversant, pleasant Eyes:Anicteric sclerae, moist conjunctiva, no lid-lag, PERRLA, ENMT: Oropharynx clear, no erythema, exudates Neck: Supple, FROM, no masses, or JVD, No carotid bruits, No thyromegaly Lungs: Clear to auscultation, Clear to percussion, Normal respiratory effort, no accessory muscle use Cardiovascular: Heart regular in rate and rhythm, No murmurs, gallops, or rubs, No peripheral edema Abdominal: Soft, tender, no guarding, rebound or rigidity, Normoactive bowel sounds, No hepatomegaly, No splenomegaly, No palpable mass Skin: Normal temperature, tone, texture, turgor, no induration, No subcutaneous nodules, No rash, lesions, No ulcers Extremities: No digital cyanosis, No clubbing, Pedal pulses intact and symmetrical, Radial pulses intact and symmetrical, No calf tenderness Psychiatric: Alert and oriented to person, place and time, appropriate affect, intact judgement Neuro: Muscles Strength 5/5 in all 4 extremities, Sensation to light touch grossly present throughout, Cranial nerves II-XII grossly intact, no focal sensory deficits Results CBC & Chem 7: 10/11/21 06:50 10/11/21 06:50 Labs: Abnormal Lab Results - Last 24 Hours (Table) 10/10/21 10/10/21 10/10/21 Range/Units 18:52 18:52 18:52 WBC 18.0 H (3.8-10.6) k/uL RBC (3.80-5.40) m/uL Hgb (11.4-16.0) gm/dL Hct (34.0-46.0) % Plt Count 608 H (150-450) k/uL Neutrophils # 15.2 H (1.3-7.7) k/uL Sodium 136 L (137-145) mmol/L BUN 5 L (7-17) mg/dL Glucose 104 H (74-99) mg/dL ALT 54 H (4-34) U/L Alkaline Phosphatase 211 H (38-126) U/L Urine Blood Small H (Negative) Urine Bacteria Occasional H (None) /hpf 10/11/21 10/11/21 Range/Units 06:50 06:50 WBC 17.8 H (3.8-10.6) k/uL RBC 3.53 L (3.80-5.40) m/uL Hgb 10.5 L (11.4-16.0) gm/dL Hct 31.2 L (34.0-46.0) % Plt Count 521 H (150-450) k/uL Neutrophils # 15.5 H (1.3-7.7) k/uL Sodium 135 L (137-145) mmol/L BUN 5 L (7-17) mg/dL Glucose 118 H (74-99) mg/dL ALT (4-34) U/L Alkaline Phosphatase (38-126) U/L Urine Blood (Negative) Urine Bacteria (None) /hpf Microbiology - Last 24 Hours (Table) 10/10/21 18:52 Stool Culture - Preliminary Stool Assessment and Plan Plan: Acute appendicitis with perforation and early abscess formation Status post appendectomy Pain control per surgery IV fluids Zosyn Recent C. diff colitis Vanco q 6hrs to finish the 2 weeks course Chronic intermittent asthma Albuterol as needed DVT prophylaxis start Lovenox subcu tomorrow Anticipated discharge: 2-3 days Disposition: Likely home
[2021-10-11] MEDS: VANCOMYCIN 125 MG CAPSULE PO SCH ×3 (14:17→21:38)
--- NOTE | 2021-10-11 14:19 | P.PN ---
Subjective Progress Note Date: 10/11/21 CHIEF COMPLAINT: Acute appendicitis with abscess HISTORY OF PRESENT ILLNESS: Patient is status post laparoscopic cholecystectomy. Postop day #1. She is complaining of abdominal pain. She did have vomiting this morning after receiving the IV Dilaudid. Her stool for C. diff was negative. Afebrile. White count went from 18-17. JOHANNA drain with 90 mL of sanguinous output. Patient complains of increased pain with movement. She also reports difficulty with urinating. She denies any panic with urination. PHYSICAL EXAM: VITAL SIGNS: Reviewed. GENERAL: Well-developed in no acute distress. HEENT: No sclera icterus. Extraocular movements grossly intact. Moist buccal mucosa. Head is atraumatic, normocephalic. ABDOMEN: Soft. Nondistended. Incision sites clean dry and intact. JOHANNA drain with sanguinous output NEUROLOGIC: Alert and oriented. Cranial nerves II through XII grossly intact. ASSESSMENT: 1. Acute appendicitis with abscess 2. Recent C. diff colitis. Repeat c.diff is negative PLAN: -1 L fluid bolus given for possible dehydration -Add IV Tylenol and Toradol to help with pain control -Add incentive spirometer -Continue IV antibiotics. Patient will most likely be discharged on oral antibiotics -Continue clear liquids -Continue Zofran as needed -DVT prophylaxis Lovenox Physician Print Shop Stenographer note has been reviewed by physician. Signing provider agrees with the documented findings, assessment, and plan of care. Objective - Vital Signs Vital signs: Vital Signs Temp 97.4 F L 10/11/21 11:27 Pulse 100 10/11/21 11:27 Resp 17 10/11/21 11:27 BP 98/59 10/11/21 11:27 Pulse Ox 94 L 10/11/21 11:27 FiO2 Intake & Output 10/10/21 10/11/21 10/11/21 18:59 06:59 18:59 Intake Total 1400 Output Total 55 40 Balance 1345 -40 Weight 70.307 kg 70.307 kg Intake: IV 1400 Output: Drainage 50 40 Abdomen 50 40 Estimated Blood Loss 5 Other: Voiding Method Toilet # Voids 2 - Labs CBC & Chem 7: 10/11/21 06:50 10/11/21 06:50 Labs: Abnormal Lab Results - Last 24 Hours (Table) 10/10/21 10/10/21 10/10/21 Range/Units 18:52 18:52 18:52 WBC 18.0 H (3.8-10.6) k/uL RBC (3.80-5.40) m/uL Hgb (11.4-16.0) gm/dL Hct (34.0-46.0) % Plt Count 608 H (150-450) k/uL Neutrophils # 15.2 H (1.3-7.7) k/uL Sodium 136 L (137-145) mmol/L BUN 5 L (7-17) mg/dL Glucose 104 H (74-99) mg/dL ALT 54 H (4-34) U/L Alkaline Phosphatase 211 H (38-126) U/L Urine Blood Small H (Negative) Urine Bacteria Occasional H (None) /hpf 10/11/21 10/11/21 Range/Units 06:50 06:50 WBC 17.8 H (3.8-10.6) k/uL RBC 3.53 L (3.80-5.40) m/uL Hgb 10.5 L (11.4-16.0) gm/dL Hct 31.2 L (34.0-46.0) % Plt Count 521 H (150-450) k/uL Neutrophils # 15.5 H (1.3-7.7) k/uL Sodium 135 L (137-145) mmol/L BUN 5 L (7-17) mg/dL Glucose 118 H (74-99) mg/dL ALT (4-34) U/L Alkaline Phosphatase (38-126) U/L Urine Blood (Negative) Urine Bacteria (None) /hpf Microbiology - Last 24 Hours (Table) 10/10/21 18:52 Stool Culture - Preliminary Stool
[2021-10-11] MEDS: SCOPOLAMINE 1 MG/72 HR PATCH TRANSDERM SCH (16:11)
[2021-10-12] MEDS: KETOROLAC 15 MG/ML 1 ML VIAL IVP SCH ×4 (04:50→23:49)
[2021-10-12] MEDS: ACETAMINOPHEN IV (For NPO) 1,000 MG in EMPTY BAG 1 BAG IVPB SCH (04:50)
[2021-10-12] MEDS: PIPERACILLIN-TAZOBACTAM 3.375 GM in SODIUM CHLORIDE 0.9% 100 ML IVPB SCH ×3 (04:51→21:08)
[2021-10-12] MEDS: SODIUM CHLORIDE 0.9% 1,000 ML IV SCH ×3 (04:52→19:48)
[2021-10-12] MEDS: ONDANSETRON 4 MG/2 ML VIAL IVP PRN ×3 (05:04→18:18)
[2021-10-12] MEDS: VANCOMYCIN 125 MG CAPSULE PO SCH ×4 (08:05→21:08)
[2021-10-12] MEDS: ENOXAPARIN 40 MG/0.4 ML SYRINGE SQ SCH (08:06)
[2021-10-12] MEDS: traMADol 50 MG TAB PO PRN ×3 (10:16→22:16)
[2021-10-12 10:40] LABS: Basophils # (A) 0.07 X 10*3/uL (0.00-0.10); Basophils % (A) 0.4 %; Eosinophils # (A) 0.07 X 10*3/uL (0.04-0.35); Eosinophils % (A) 0.4 %; HCT 29.1 % (37.2-46.3); Immature Grans, Automated 0.4 %; Lymphocytes # (A) 1.19 X 10*3/uL (0.90-5.00); Lymphocytes % (A) 7.4 %; MCH 28.3 pg (27.0-32.0); MCHC 30.9 g/dL (32.0-37.0); MCV 91.5 fL (80.0-97.0); Mean Platelet Volume 9.8 fL (9.5-12.2); Monocytes # (A) 1.07 X 10*3/uL (0.20-1.00); Monocytes % (A) 6.7 %; NRBC Per 100 WBC 0 /100 WBCS (0.0-0.0); Neutrophils # (A) 13.62 X 10*3/uL (1.80-7.70); Neutrophils % (A) 84.7 %; Platelet Count 484 X 10*3/uL (140-440); RBC 3.18 X 10*6/uL (4.10-5.20); RDW 13.1 % (11.5-14.5); WBC 16.09 X 10*3/uL (4.50-10.00)
[2021-10-12 10:48] LABS: African American GFR (CKD) 133.1 (60.0-200.0); Anion Gap 11.1 mmol/L (10.00-18.00); BUN/Creat Ratio 6.17 Ratio (12.00-20.00); Blood Urea Nitrogen 3.7 mg/dL (9.0-27.0); Calcium 8.2 mg/dL (8.7-10.3); Carbon Dioxide 22.9 mmol/L (20.0-27.5); Non-African American GFR(CKD) 114.8 (60.0-200.0); Potassium 3.8 mmol/L (3.5-5.5)
--- NOTE | 2021-10-12 14:30 | P.PN ---
Subjective Progress Note Date: 10/12/21 CHIEF COMPLAINT: Acute appendicitis with abscess HISTORY OF PRESENT ILLNESS: Patient is status post laparoscopic appendectomy. Postop day #2. Patient is complaining of abdominal pain. Her pain is mostly on the right side of the abdomen. She did have 3 episodes of vomiting last night. She does report flatus and having diarrhea stools. Afebrile. WBC trending downwards from 17.8-16.09 Hgb 9.0 platelets 484 sodium is 137 potassium is 3.8 creatinine 0.6 Patient seen and examined with Dr. grullon PHYSICAL EXAM: VITAL SIGNS: Reviewed. GENERAL: Well-developed in no acute distress. HEENT: No sclera icterus. Extraocular movements grossly intact. Moist buccal mucosa. Head is atraumatic, normocephalic. ABDOMEN: Soft. Nondistended. Incision sites clean dry and intact. JOHANNA drain with serosanguineous output of 155 mL NEUROLOGIC: Alert and oriented. Cranial nerves II through XII grossly intact. ASSESSMENT: 1. Acute appendicitis with abscess 2. Recent C. diff colitis. Repeat c.diff is negative PLAN: -Continue clear liquid diet -Add Reglan scheduled to help with nausea and vomiting -Scopolamine patch added yesterday. And Zofran dose increased every 6 hours as needed -Continue IV Tylenol and Toradol scheduled -Recommended for patient to use the Ultram -Encouraged patient to increase activity level -Continue IV antibiotics. Patient will be discharged on oral antibiotics -Repeat CBC in a.m. -DVT prophylaxis Lovenox Physician Guest Service Supervisor note has been reviewed by physician. Signing provider agrees with the documented findings, assessment, and plan of care. Objective - Vital Signs Vital signs: Vital Signs Temp 98.2 F 10/12/21 12:06 Pulse 79 10/12/21 12:06 Resp 16 10/12/21 12:06 BP 120/70 10/12/21 12:06 Pulse Ox 95 10/12/21 12:06 FiO2 Intake & Output 10/11/21 10/12/21 10/12/21 18:59 06:59 18:59 Intake Total 640 Output Total 85 155 Balance -85 485 Intake: Oral 640 Output: Drainage 85 155 Abdomen 85 155 Other: Voiding Method Toilet Toilet # Voids 5 2 1 - Labs CBC & Chem 7: 10/12/21 06:24 10/12/21 06:24 Labs: Abnormal Lab Results - Last 24 Hours (Table) 10/12/21 10/12/21 Range/Units 06:24 06:24 WBC 16.09 H (4.50-10.00) X 10*3/uL RBC 3.18 L (4.10-5.20) X 10*6/uL Hgb 9.0 L (12.0-15.0) g/dL Hct 29.1 L (37.2-46.3) % MCHC 30.9 L (32.0-37.0) g/dL Plt Count 484 H (140-440) X 10*3/uL Immature Gran # 0.07 H (0.00-0.04) X 10*3/uL Neutrophils # 13.62 H (1.80-7.70) X 10*3/uL Monocytes # 1.07 H (0.20-1.00) X 10*3/uL BUN 3.7 L (9.0-27.0) mg/dL BUN/Creatinine Ratio 6.17 L (12.00-20.00) Ratio Calcium 8.2 L (8.7-10.3) mg/dL Microbiology - Last 24 Hours (Table) 10/10/21 21:30 Blood Culture - Preliminary Blood No Growth after 24 hours
--- NOTE | 2021-10-12 14:41 | P.PN ---
Subjective Progress Note Date: 10/12/21 Principal diagnosis: C. diff, appendicitis Patient was seen and examined. No acute events overnight. Patient reports continued pain in her right lower quadrant. JOHANNA drain draining serosanguineous fluid. She reports nausea and vomiting which she believes is due to clear liquid diet. She is requesting a regular diet. Objective - Vital Signs Vital signs: Vital Signs Temp 98.2 F 10/12/21 12:06 Pulse 79 10/12/21 12:06 Resp 16 10/12/21 12:06 BP 120/70 10/12/21 12:06 Pulse Ox 95 10/12/21 12:06 FiO2 Intake & Output 10/11/21 10/12/21 10/12/21 18:59 06:59 18:59 Intake Total 640 Output Total 85 155 Balance -85 485 Intake: Oral 640 Output: Drainage 85 155 Abdomen 85 155 Other: Voiding Method Toilet Toilet # Voids 5 2 1 - Exam General: [non toxic], [no distress], [appears at stated age] Derm: [warm], [dry] Head: [atraumatic], [normocephalic], [symmetric] Eyes: [EOMI], [no lid lag], [anicteric sclera] Mouth: [no lip lesion], [mucus membranes moist] Cardiovascular: [S1S2 reg], [no murmur] Lungs: [CTA bilateral], [no rhonchi, no rales] , [no accessory muscle use] Abdominal: [soft], [JOHANNA drain intact with serosanguineous discharge], [no guarding], [no appreciable organomegaly], [incision site without erythema or discharge] Ext: [no gross muscle atrophy], [no edema], [no contractures] Psych: [Alert], [oriented], [appropriate affect] - Labs CBC & Chem 7: 10/12/21 06:24 10/12/21 06:24 Labs: Abnormal Lab Results - Last 24 Hours (Table) 10/12/21 10/12/21 Range/Units 06:24 06:24 WBC 16.09 H (4.50-10.00) X 10*3/uL RBC 3.18 L (4.10-5.20) X 10*6/uL Hgb 9.0 L (12.0-15.0) g/dL Hct 29.1 L (37.2-46.3) % MCHC 30.9 L (32.0-37.0) g/dL Plt Count 484 H (140-440) X 10*3/uL Immature Gran # 0.07 H (0.00-0.04) X 10*3/uL Neutrophils # 13.62 H (1.80-7.70) X 10*3/uL Monocytes # 1.07 H (0.20-1.00) X 10*3/uL BUN 3.7 L (9.0-27.0) mg/dL BUN/Creatinine Ratio 6.17 L (12.00-20.00) Ratio Calcium 8.2 L (8.7-10.3) mg/dL Microbiology - Last 24 Hours (Table) 10/10/21 21:30 Blood Culture - Preliminary Blood No Growth after 24 hours Assessment and Plan Assessment: Acute appendicitis with perforation and early abscess formation Leukocytosis Status post appendectomy Pain control per surgery - Tylenol, Toradol and Tramadol IV fluids Zofran, Reglan, Scopolamine patch for nausea or vomiting Zosyn for antibiotic coverage Acute blood loss anemia Expected result of surgery Continue to monitor Recent C. diff colitis Vanco Q6H to finish the 2 weeks course (should be completed on 10/14) Chronic intermittent asthma Stable not in acute exacerbation DVT prophylaxis Lovenox Anticipated discharge: 1-2 days Disposition: Likely home
[2021-10-12] MEDS: METOCLOPRAMIDE 5 MG/ML 2 ML VIAL IVP SCH ×3 (15:05→23:50)
[2021-10-12] MEDS: ACETAMINOPHEN TAB 500 MG TAB PO SCH ×2 (18:11→23:50)
[2021-10-13] MEDS: ONDANSETRON 4 MG/2 ML VIAL IVP PRN ×4 (02:03→21:55)
[2021-10-13] MEDS: SODIUM CHLORIDE 0.9% 1,000 ML IV SCH ×3 (02:12→16:45)
[2021-10-13] MEDS: PIPERACILLIN-TAZOBACTAM 3.375 GM in SODIUM CHLORIDE 0.9% 100 ML IVPB SCH ×3 (05:38→21:27)
[2021-10-13] MEDS: ACETAMINOPHEN TAB 500 MG TAB PO SCH ×3 (05:39→18:01)
[2021-10-13] MEDS: METOCLOPRAMIDE 5 MG/ML 2 ML VIAL IVP SCH ×2 (05:39→13:50)
[2021-10-13] MEDS: KETOROLAC 15 MG/ML 1 ML VIAL IVP SCH ×4 (05:39→23:05)
[2021-10-13] MEDS: VANCOMYCIN 125 MG CAPSULE PO SCH ×4 (08:17→21:27)
[2021-10-13] MEDS: ENOXAPARIN 40 MG/0.4 ML SYRINGE SQ SCH (08:22)
[2021-10-13 09:01] LABS: Basophils # (A) 0.07 X 10*3/uL (0.00-0.10); Basophils % (A) 0.7 %; Eosinophils # (A) 0.15 X 10*3/uL (0.04-0.35); Eosinophils % (A) 1.5 %; HCT 27.2 % (37.2-46.3); HGB 8.5 g/dL (12.0-15.0); Immature Grans, Automated 0.5 %; Lymphocytes # (A) 1.67 X 10*3/uL (0.90-5.00); Lymphocytes % (A) 16.9 %; MCH 28.6 pg (27.0-32.0); MCHC 31.3 g/dL (32.0-37.0); MCV 91.6 fL (80.0-97.0); Mean Platelet Volume 9.4 fL (9.5-12.2); Monocytes # (A) 0.78 X 10*3/uL (0.20-1.00); Monocytes % (A) 7.9 %; NRBC Per 100 WBC 0 /100 WBCS (0.0-0.0); Neutrophils # (A) 7.18 X 10*3/uL (1.80-7.70); Neutrophils % (A) 72.5 %; Platelet Count 476 X 10*3/uL (140-440); RBC 2.97 X 10*6/uL (4.10-5.20); RDW 13.2 % (11.5-14.5)
--- NOTE | 2021-10-13 11:20 | P.PN ---
Subjective Progress Note Date: 10/13/21 CHIEF COMPLAINT: Acute appendicitis with abscess HISTORY OF PRESENT ILLNESS: Patient is status post laparoscopic appendectomy. Postop day #3. Patient reports that her abdominal pain is showing improvement. She is currently rating her pain 4 out of 10. She did however have one episode of vomiting this morning. She reports improvement in her nausea compared to yesterday. Reglan had been added. She is having flatus and diarrhea. Afebrile. WBC has normalized from 16.09 to 9.90 hgb 8.5 platelets 476. Patient continues requests advancement of diet. Patient seen and examined with Dr. grullon PHYSICAL EXAM: VITAL SIGNS: Reviewed. GENERAL: Well-developed in no acute distress. HEENT: No sclera icterus. Extraocular movements grossly intact. Moist buccal mucosa. Head is atraumatic, normocephalic. ABDOMEN: Soft. Nondistended. Incision sites clean dry and intact. JOHANNA drain with serosanguineous output of 60ml this AM NEUROLOGIC: Alert and oriented. Cranial nerves II through XII grossly intact. ASSESSMENT: 1. Acute appendicitis with abscess 2. Recent C. diff colitis. Repeat c.diff is negative PLAN: -Continue clear liquid diet -Add Ensure Clear TID -Continue antiemetics -Continue current pain medications -Continue IV fluids -Encouraged patient to ambulate -DVT prophylaxis Lovex Physician Ad Copy Writer note has been reviewed by physician. Signing provider agrees with the documented findings, assessment, and plan of care. I have personally seen and examined the patient, reviewed the VIDEO ARCADE MANAGER /PAs history, exam and MDM and agree with the assessment and plan as written. Based on total visit time, I have performed more than 50% of the visit. As above: Patient seems to be doing overall better today. Her pain is improved. She is having loose stools. Unfortunate she had episodes of vomiting around noon. Continue clear liquids. May advance diet tomorrow if no further vomiting. Continue antibiotics. Keep drain in place. Objective - Vital Signs Vital signs: Vital Signs Temp 98.2 F 10/13/21 05:00 Pulse 88 10/13/21 05:00 Resp 18 10/13/21 05:00 BP 119/72 10/13/21 05:00 Pulse Ox 95 10/13/21 05:00 FiO2 Intake & Output 10/12/21 10/13/21 10/13/21 18:59 06:59 18:59 Intake Total 360 2100 Output Total 150 60 Balance 210 0 Intake: Intake, IV Titration 1600 Amount Piperacillin-Tazobactam 3 200 .375 gm In Sodium Chloride 0.9% 100 ml @ 25 mls/hr IVPB Q8H [facility] Rx#: [id number] Sodium Chloride 0.9% 1, 1400 000 ml @ 130 mls/hr IV . Q7H42M [facility] Rx#:[id number] Oral 360 500 Output: Drainage 150 60 Abdomen 150 60 Other: Voiding Method Toilet Toilet # Voids 4 3 1 - Labs CBC & Chem 7: 10/13/21 05:29 10/12/21 06:24 Labs: Abnormal Lab Results - Last 24 Hours (Table) 10/13/21 Range/Units 05:29 RBC 2.97 L (4.10-5.20) X 10*6/uL Hgb 8.5 L (12.0-15.0) g/dL Hct 27.2 L (37.2-46.3) % MCHC 31.3 L (32.0-37.0) g/dL Plt Count 476 H (140-440) X 10*3/uL MPV 9.4 L (9.5-12.2) fL Immature Gran # 0.05 H (0.00-0.04) X 10*3/uL Microbiology - Last 24 Hours (Table) 10/10/21 21:30 Blood Culture - Preliminary Blood No Growth after 48 hours 10/10/21 18:52 Stool Culture - Preliminary Stool
[2021-10-13] MEDS ORDERED: PANTOPRAZOLE 40 MG/10 ML VIAL IVP SCH (13:00)
[2021-10-13] MEDS: FAMOTIDINE 20 MG/2 ML VIAL IV SCH (13:47)
[2021-10-13] MEDS ORDERED: MORPHINE SULFATE 2 MG/ML SYRINGE IVP PRN (18:09)
--- NOTE | 2021-10-13 18:29 | P.PN ---
Subjective Progress Note Date: 10/13/21 Principal diagnosis: C. diff, appendicitis Patient was seen and examined. No acute events overnight. Patient reports multiple episodes of nausea and vomiting. JOHANNA drain draining serosanguineous fluid. She is requesting a regular diet. Objective - Vital Signs Vital signs: Vital Signs Temp 98.2 F 10/13/21 11:13 Pulse 84 10/13/21 11:13 Resp 18 10/13/21 11:13 BP 123/75 10/13/21 11:13 Pulse Ox 97 10/13/21 11:13 FiO2 Intake & Output 10/12/21 10/13/21 10/13/21 18:59 06:59 18:59 Intake Total 360 2100 Output Total 150 60 130 Balance 210 2040 -130 Intake: Intake, IV Titration 1600 Amount Piperacillin-Tazobactam 3 200 .375 gm In Sodium Chloride 0.9% 100 ml @ 25 mls/hr IVPB Q8H [facility] Rx#: [id number] Sodium Chloride 0.9% 1, 1400 000 ml @ 130 mls/hr IV . Q7H42M [facility] Rx#:[id number] Oral 360 500 Output: Drainage 150 60 130 Abdomen 150 60 130 Other: Voiding Method Toilet Toilet # Voids 4 3 1 - Exam General: [non toxic], [no distress], [appears at stated age] Derm: [warm], [dry] Head: [atraumatic], [normocephalic], [symmetric] Eyes: [EOMI], [no lid lag], [anicteric sclera] Mouth: [no lip lesion], [mucus membranes moist] Cardiovascular: [S1S2 reg], [no murmur] Lungs: [CTA bilateral], [no rhonchi, no rales] , [no accessory muscle use] Abdominal: [soft], [JOHANNA drain intact with serosanguineous discharge], [no guarding], [no appreciable organomegaly], [incision site without erythema or discharge] Ext: [no gross muscle atrophy], [no edema], [no contractures] Psych: [Alert], [oriented], [appropriate affect] - Labs CBC & Chem 7: 10/13/21 05:29 10/12/21 06:24 Labs: Abnormal Lab Results - Last 24 Hours (Table) 10/13/21 Range/Units 05:29 RBC 2.97 L (4.10-5.20) X 10*6/uL Hgb 8.5 L (12.0-15.0) g/dL Hct 27.2 L (37.2-46.3) % MCHC 31.3 L (32.0-37.0) g/dL Plt Count 476 H (140-440) X 10*3/uL MPV 9.4 L (9.5-12.2) fL Immature Gran # 0.05 H (0.00-0.04) X 10*3/uL Microbiology - Last 24 Hours (Table) 10/10/21 21:30 Blood Culture - Preliminary Blood No Growth after 48 hours 10/10/21 18:52 Stool Culture - Preliminary Stool Assessment and Plan Assessment: Acute appendicitis with perforation and early abscess formation Leukocytosis Status post appendectomy Pain control per surgery - Tylenol, Toradol and Tramadol IV fluids Zofran, Reglan, Scopolamine patch for nausea or vomiting Zosyn for antibiotic coverage Acute blood loss anemia Expected result of surgery Continue to monitor Recent C. diff colitis Vanco Q6H to finish the 2 weeks course (should be completed on 10/14) Chronic intermittent asthma Stable not in acute exacerbation DVT prophylaxis Lovenox Anticipated discharge: 1-2 days Disposition: Likely home
[2021-10-13] MEDS: traMADol 50 MG TAB PO PRN (21:26)
[2021-10-14] MEDS: SODIUM CHLORIDE 0.9% 1,000 ML IV SCH ×3 (00:10→15:35)
[2021-10-14] MEDS: ACETAMINOPHEN TAB 500 MG TAB PO SCH ×4 (00:43→18:16)
[2021-10-14] MEDS: KETOROLAC 15 MG/ML 1 ML VIAL IVP SCH (03:07)
[2021-10-14] MEDS: ONDANSETRON 4 MG/2 ML VIAL IVP PRN ×4 (04:13→22:29)
[2021-10-14] MEDS: PIPERACILLIN-TAZOBACTAM 3.375 GM in SODIUM CHLORIDE 0.9% 100 ML IVPB SCH ×3 (04:13→21:19)
[2021-10-14] MEDS: traMADol 50 MG TAB PO PRN ×4 (04:13→22:29)
[2021-10-14 08:45] LABS: HCT 27.2 % (37.2-46.3); HGB 8.5 g/dL (12.0-15.0); MCH 28.1 pg (27.0-32.0); MCHC 31.3 g/dL (32.0-37.0); MCV 89.8 fL (80.0-97.0); Mean Platelet Volume 9.4 fL (9.5-12.2); NRBC Per 100 WBC 0 /100 WBCS (0.0-0.0); Platelet Count 542 X 10*3/uL (140-440); RBC 3.03 X 10*6/uL (4.10-5.20); RDW 12.9 % (11.5-14.5); WBC 9.85 X 10*3/uL (4.50-10.00)
[2021-10-14] MEDS: VANCOMYCIN 125 MG CAPSULE PO SCH ×4 (09:07→21:18)
[2021-10-14] MEDS: ENOXAPARIN 40 MG/0.4 ML SYRINGE SQ SCH (09:08)
[2021-10-14] MEDS: FAMOTIDINE 20 MG/2 ML VIAL IV SCH (09:08)
[2021-10-14 09:12] LABS: African American GFR (CKD) 133.1 (60.0-200.0); BUN/Creat Ratio 3.67 Ratio (12.00-20.00); Blood Urea Nitrogen 2.2 mg/dL (9.0-27.0); Calcium 8.1 mg/dL (8.7-10.3); Non-African American GFR(CKD) 114.8 (60.0-200.0); Potassium 3.2 mmol/L (3.5-5.5)
[2021-10-14] MEDS ORDERED: POTASSIUM CHLORIDE 20 MEQ in WATER FOR INJECTION 1 100ML.BAG IVPB SCH (11:00)
--- NOTE | 2021-10-14 11:17 | P.PN ---
Subjective Progress Note Date: 10/14/21 Principal diagnosis: C. diff, appendicitis Patient was seen and examined. No acute events overnight. Patient reports multiple episodes of nausea and vomiting (6 times yesterday). JOHANNA drain draining serosanguineous fluid. She is requesting a regular diet. Objective - Vital Signs Vital signs: Vital Signs Temp 98.2 F 10/14/21 03:46 Pulse 88 10/14/21 03:46 Resp 18 10/14/21 03:46 BP 144/76 10/14/21 03:46 Pulse Ox 96 10/14/21 03:46 FiO2 Intake & Output 10/13/21 10/14/21 10/14/21 18:59 06:59 18:59 Intake Total 2100 Output Total 130 120 Balance -130 1980 Intake: Intake, IV Titration 1700 Amount Piperacillin-Tazobactam 3 200 .375 gm In Sodium Chloride 0.9% 100 ml @ 25 mls/hr IVPB Q8H [facility] Rx#: [id number] Sodium Chloride 0.9% 1, 1500 000 ml @ 130 mls/hr IV . Q7H42M [facility] Rx#:[id number] Oral 400 Output: Drainage 130 120 Abdomen 130 120 Other: Voiding Method Toilet # Voids 5 4 # Bowel Movements 3 - Exam General: [non toxic], [no distress], [appears at stated age] Derm: [warm], [dry] Head: [atraumatic], [normocephalic], [symmetric] Eyes: [EOMI], [no lid lag], [anicteric sclera] Mouth: [no lip lesion], [mucus membranes moist] Cardiovascular: [S1S2 reg], [no murmur] Lungs: [CTA bilateral], [no rhonchi, no rales] , [no accessory muscle use] Abdominal: [soft], [JOHANNA drain intact with serosanguineous discharge], [no guarding], [no appreciable organomegaly], [incision site without erythema or discharge] Ext: [no gross muscle atrophy], [no edema], [no contractures] Psych: [Alert], [oriented], [appropriate affect] - Labs CBC & Chem 7: 10/14/21 06:34 10/14/21 06:34 Labs: Abnormal Lab Results - Last 24 Hours (Table) 10/14/21 10/14/21 Range/Units 06:34 06:34 RBC 3.03 L (4.10-5.20) X 10*6/uL Hgb 8.5 L (12.0-15.0) g/dL Hct 27.2 L (37.2-46.3) % MCHC 31.3 L (32.0-37.0) g/dL Plt Count 542 H (140-440) X 10*3/uL MPV 9.4 L (9.5-12.2) fL Potassium 3.2 L (3.5-5.5) mmol/L BUN 2.2 L (9.0-27.0) mg/dL BUN/Creatinine Ratio 3.67 L (12.00-20.00) Ratio Calcium 8.1 L (8.7-10.3) mg/dL Microbiology - Last 24 Hours (Table) 10/10/21 21:30 Blood Culture - Preliminary Blood No Growth after 72 hours 10/10/21 18:52 Stool Culture - Final Stool Assessment and Plan Assessment: Acute appendicitis with perforation and early abscess formation Intractable nausea and vomiting Status post appendectomy Pain control per surgery - Tylenol, Morphine and Tramadol Case discussed with [employer]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 diff colitis Vanco Q6H to finish the 2 weeks course (should be completed on 10/14) Chronic intermittent asthma Stable not in acute exacerbation DVT prophylaxis Lovenox Anticipated Discharge: 1-2 days Disposition: Home
[2021-10-14] MEDS ORDERED: POTASSIUM CHLORIDE ER 20 MEQ TAB.ER PO STA (11:39)
--- NOTE | 2021-10-14 13:17 | P.PN ---
Subjective Progress Note Date: 10/14/21 CHIEF COMPLAINT: Acute appendicitis with abscess HISTORY OF PRESENT ILLNESS: Patient is status post laparoscopic appendectomy. Postop day #4. Patient reports a total of 6 episodes of vomiting throughout the day yesterday. Her last episode of emesis was 10:00 last night. She does complain of right-sided abdominal pain and pain at JOHANNA drain site that she rates about a 5 out of 10. She feels that the pain might be a little worse today due to all the vomiting. She had some nausea this morning that has improved. She is stopped taking the Toradol. She thought that that might be contributing to her vomiting. Patient feels that her vomiting was due to pain medication and the taste of the clear liquids. IV Pepcid was added yesterday. She does report flatus and diarrhea. Vitals are all stable. No fever. WBC normal at 9.8 to Hgb 8.5 plt 542 Na 139 K 3.2 cr 0.6 Mg 1.9 JOHANNA drain with 120 mL serosanguineous fluid PHYSICAL EXAM: VITAL SIGNS: Reviewed. GENERAL: Well-developed in no acute distress. HEENT: No sclera icterus. Extraocular movements grossly intact. Moist buccal mucosa. Head is atraumatic, normocephalic. ABDOMEN: Soft. Nondistended. Mild tenderness to palpation in the right side of the abdomen and around the JOHANNA drain site. Incision sites clean dry and intact. JOHANNA drain site clean dry and intact. JOHANNA drain with serosanguineous output NEUROLOGIC: Alert and oriented. Cranial nerves II through XII grossly intact. ASSESSMENT: 1. Acute appendicitis with abscess 2. Recent C. diff colitis. Repeat c.diff is negative PLAN: -Advance to full liquids and monitor -Continue antiemetics -Continue tylenol and ultram -Continue antibiotics -Continue monitor JOHANNA drain -Continue IV fluids -Ok to shower -Encouraged patient to ambulate -DVT prophylaxis Lovenox and Pepcid for GI prophylaxis Physician Editorial Cartoonist note has been reviewed by physician. Signing provider agrees with the documented findings, assessment, and plan of care. I have personally seen and examined the patient, reviewed the SMALL OFFSET PRINTER /PAs history, exam and MDM and agree with the assessment and plan as written. Based on total visit time, I have performed more than 50% of the visit. As above: Patient doing better today. Nausea vomiting have resolved. Less diarrhea. Her pain is improved this afternoon since this morning even. Continue antibiotics. Advance diet tomorrow if tolerating without nausea or vomiting. Objective - Vital Signs Vital signs: Vital Signs Temp 97.3 F L 10/14/21 11:46 Pulse 77 10/14/21 11:46 Resp 18 10/14/21 11:46 BP 126/76 10/14/21 11:46 Pulse Ox 94 L 10/14/21 11:46 FiO2 Intake & Output 10/13/21 10/14/21 10/14/21 18:59 06:59 18:59 Intake Total 2100 Output Total 130 120 0 Balance -130 1980 0 Intake: Intake, IV Titration 1700 Amount Piperacillin-Tazobactam 3 200 .375 gm In Sodium Chloride 0.9% 100 ml @ 25 mls/hr IVPB Q8H [facility] Rx#: [id number] Sodium Chloride 0.9% 1, 1500 000 ml @ 130 mls/hr IV . Q7H42M [facility] Rx#:[id number] Oral 400 Output: Drainage 130 120 0 Abdomen 130 120 0 Other: Voiding Method Toilet # Voids 5 4 # Bowel Movements 3 - Labs CBC & Chem 7: 10/14/21 06:34 10/14/21 06:34 Labs: Abnormal Lab Results - Last 24 Hours (Table) 10/14/21 10/14/21 Range/Units 06:34 06:34 RBC 3.03 L (4.10-5.20) X 10*6/uL Hgb 8.5 L (12.0-15.0) g/dL Hct 27.2 L (37.2-46.3) % MCHC 31.3 L (32.0-37.0) g/dL Plt Count 542 H (140-440) X 10*3/uL MPV 9.4 L (9.5-12.2) fL Potassium 3.2 L (3.5-5.5) mmol/L BUN 2.2 L (9.0-27.0) mg/dL BUN/Creatinine Ratio 3.67 L (12.00-20.00) Ratio Calcium 8.1 L (8.7-10.3) mg/dL Microbiology - Last 24 Hours (Table) 10/10/21 21:30 Blood Culture - Preliminary Blood No Growth after 72 hours 10/10/21 18:52 Stool Culture - Final Stool
[2021-10-14] MEDS: SCOPOLAMINE 1 MG/72 HR PATCH TRANSDERM SCH (16:23)
[2021-10-15] MEDS: ACETAMINOPHEN TAB 500 MG TAB PO SCH ×5 (02:13→23:21)
[2021-10-15] MEDS: ONDANSETRON 4 MG/2 ML VIAL IVP PRN ×4 (04:56→23:17)
[2021-10-15] MEDS: traMADol 50 MG TAB PO PRN ×4 (04:58→23:17)
[2021-10-15] MEDS: PIPERACILLIN-TAZOBACTAM 3.375 GM in SODIUM CHLORIDE 0.9% 100 ML IVPB SCH ×3 (04:59→21:34)
[2021-10-15] MEDS: FAMOTIDINE 20 MG/2 ML VIAL IV SCH (08:59)
[2021-10-15] MEDS: ENOXAPARIN 40 MG/0.4 ML SYRINGE SQ SCH (08:59)
[2021-10-15] MEDS: VANCOMYCIN 125 MG CAPSULE PO SCH ×2 (08:59→13:08)
[2021-10-15] MEDS: SODIUM CHLORIDE 0.9% 1,000 ML IV SCH ×3 (09:00→18:38)
--- NOTE | 2021-10-15 15:20 | P.PN ---
Subjective Progress Note Date: 10/15/21 CHIEF COMPLAINT: Appendicitis HISTORY OF PRESENT ILLNESS: The patient is a 41-year-old female status post appendectomy, 10/11/21. Patient reports complicated history of C. diff prior to her appendicitis. She complains of right upper quadrant discomfort. She also reports increased drainage from the JOHANNA. No fevers. Last white blood cell count normal. Diarrhea has improved. ROS: No reports of nausea and vomiting. No bowel movements. No fevers or chills. No new chest pain. No productive sputum PHYSICAL EXAM: VITAL SIGNS: Reviewed CONSTITUTIONAL: Well developed and in no acute distress. EYES: Conjuctivae without sclera icterus. Extraocular movements grossly intact. HEAD, EARS, NOSE, THROAT: Moist buccal mucosa. Head is atraumatic, normocephalic. Hears conversational speech. No nasal drainage. RESPIRATORY: Non-labored respirations and equal bilateral excursions. CARDIOVASCULAR: Palpable 2+ radial pulses. ABDOMEN: Mild tender upper and lower abdomen. No peritonitis. JOHANNA serous. MUSCULOSKELETAL: No gross deformity of the lower extremities noted. No clubbing. No cyanosis. SKIN: Good skin turgor. Well perfused. NEUROLOGIC: Cranial nerves II through XII grossly intact. No focal or lateralizing signs. PSYCH: Appropriate affect. Alert and oriented to person, place and time. CLINICAL LABS: Reviewed. WBC normal at 9.8. Hgb stable 8.5. ASSESSMENT: 1. Acute appendicitis 2. Clostridium colitis PLAN: 1. We'll advance diet to low fiber diet. 2. Continue vancomycin Objective - Vital Signs Vital signs: Vital Signs Temp 98.3 F 10/15/21 12:47 Pulse 74 10/15/21 12:47 Resp 16 10/15/21 12:47 BP 126/74 10/15/21 12:47 Pulse Ox 95 10/15/21 12:47 FiO2 Intake & Output 10/14/21 10/15/21 10/15/21 18:59 06:59 18:59 Output Total 80 80 140 Balance -80 -80 -140 Output: Drainage 80 80 140 Abdomen 80 80 140 Other: Voiding Method Toilet # Voids 3 - Labs CBC & Chem 7: 10/14/21 06:34 10/14/21 06:34 Labs: Microbiology - Last 24 Hours (Table) 10/10/21 21:30 Blood Culture - Preliminary Blood No Growth after 96 hours
--- NOTE | 2021-10-15 17:32 | P.PN ---
Subjective Progress Note Date: 10/15/21 Principal diagnosis: Ruptured appendicitis Patient with ruptured appendicitis and abscess postop day #5 nausea and vomiting improving diet being advanced Objective - Vital Signs Vital signs: Vital Signs Temp 98.3 F 10/15/21 12:47 Pulse 74 10/15/21 12:47 Resp 16 10/15/21 12:47 BP 126/74 10/15/21 12:47 Pulse Ox 95 10/15/21 12:47 FiO2 Intake & Output 10/14/21 10/15/21 10/15/21 18:59 06:59 18:59 Output Total 80 80 190 Balance -80 -80 -190 Output: Drainage 80 80 190 Abdomen 80 80 190 Other: Voiding Method Toilet # Voids 3 - Constitutional General appearance: Present: cooperative - Respiratory Respiratory: bilateral: CTA - Cardiovascular Rhythm: regular - Gastrointestinal Gastrointestinal Comment(s): plus drain, incision c/d General gastrointestinal: Present: normal bowel sounds - Psychiatric Psychiatric: Present: appropriate affect - Labs CBC & Chem 7: 10/14/21 06:34 10/14/21 06:34 Labs: Microbiology - Last 24 Hours (Table) 10/10/21 21:30 Blood Culture - Preliminary Blood No Growth after 96 hours Assessment and Plan (1) Ruptured appendix Narrative/Plan: Postop day #5, patient states her nausea vomiting has improved, she is tolerating a full liquid diet diet advanced fiber per surgery Current Visit: Yes Status: Acute Code(s): K35.32 - ACUTE APPENDICITIS WITH PERF AND LOC PERITONITIS, W/O ABSCS SNOMED Code(s): 86012156 (2) C. difficile colitis Current Visit: Yes Status: Acute Code(s): A04.72 - ENTEROCOLITIS D/T CLOSTRIDIUM DIFFICILE, NOT SPCF RECUR SNOMED Code(s): 154417438 (3) Diarrhea Narrative/Plan: Patient has completed a course of oral vancomycin were discontinued today she has not had any diarrhea today Current Visit: No Status: Acute Code(s): R19.7 - DIARRHEA, UNSPECIFIED SNOMED Code(s): 79507666 (4) Leukocytosis Narrative/Plan: Ruptured appendicitis with abscess currently on Zosyn Current Visit: Yes Status: Acute Code(s): D72.829 - ELEVATED WHITE BLOOD CELL COUNT, UNSPECIFIED SNOMED Code(s): 468330346
[2021-10-16] MEDS: SODIUM CHLORIDE 0.9% 1,000 ML IV SCH ×4 (00:35→18:37)
[2021-10-16] MEDS: PIPERACILLIN-TAZOBACTAM 3.375 GM in SODIUM CHLORIDE 0.9% 100 ML IVPB SCH ×3 (05:27→20:40)
[2021-10-16] MEDS: ONDANSETRON 4 MG/2 ML VIAL IVP PRN ×4 (05:27→23:56)
[2021-10-16] MEDS: traMADol 50 MG TAB PO PRN ×4 (05:28→23:56)
[2021-10-16] MEDS: ACETAMINOPHEN TAB 500 MG TAB PO SCH ×3 (05:34→17:51)
[2021-10-16] MEDS: ENOXAPARIN 40 MG/0.4 ML SYRINGE SQ SCH (07:43)
[2021-10-16] MEDS: FAMOTIDINE 20 MG/2 ML VIAL IV SCH (07:44)
[2021-10-16 10:21] LABS: HCT 29.8 % (37.2-46.3); HGB 9.3 g/dL (12.0-15.0); MCH 27.9 pg (27.0-32.0); MCHC 31.2 g/dL (32.0-37.0); MCV 89.5 fL (80.0-97.0); Mean Platelet Volume 9.3 fL (9.5-12.2); NRBC Per 100 WBC 0 /100 WBCS (0.0-0.0); Platelet Count 669 X 10*3/uL (140-440); RBC 3.33 X 10*6/uL (4.10-5.20); RDW 13.2 % (11.5-14.5); WBC 9.08 X 10*3/uL (4.50-10.00)
--- NOTE | 2021-10-16 13:40 | P.PN ---
Subjective Progress Note Date: 10/16/21 CHIEF COMPLAINT: Appendicitis HISTORY OF PRESENT ILLNESS: The patient is a 41-year-old female status post appendectomy, 10/11/21. No further diarrhea. Mother notes patient improving. Patient overall feels better than yesterday. She is tolerating a low fiber diet. No blood in stools. No bowel movement in 24 hours. ROS: No reports of nausea and vomiting. No bowel movements. No fevers or chills. No new chest pain. No productive sputum PHYSICAL EXAM: VITAL SIGNS: Reviewed CONSTITUTIONAL: Well developed and in no acute distress. EYES: Conjuctivae without sclera icterus. Extraocular movements grossly intact. HEAD, EARS, NOSE, THROAT: Moist buccal mucosa. Head is atraumatic, normoceph alic. Hears conversational speech. No nasal drainage. RESPIRATORY: Non-labored respirations and equal bilateral excursions. CARDIOVASCULAR: Palpable 2+ radial pulses. ABDOMEN: JOHANNA is serous. No peritonitis. MUSCULOSKELETAL: No gross deformity of the lower extremities noted. No clubbing. No cyanosis. SKIN: Good skin turgor. Well perfused. NEUROLOGIC: Cranial nerves II through XII grossly intact. No focal or lateralizing signs. PSYCH: Appropriate affect. Alert and oriented to person, place and time. CLINICAL LABS: Reviewed. . Hgb stable 8.5, now improved at 9.3 ASSESSMENT: 1. Acute appendicitis 2. Clostridium colitis PLAN: 1. Adjustment of nonnarcotic pain management. 2. Disposition 24 hours. Objective - Vital Signs Vital signs: Vital Signs Temp 98.0 F 10/16/21 05:00 Pulse 76 10/16/21 05:00 Resp 16 10/16/21 05:00 BP 129/79 10/16/21 05:00 Pulse Ox 93 L 10/16/21 05:00 FiO2 Intake & Output 10/15/21 10/16/21 10/16/21 18:59 06:59 18:59 Intake Total 1180 Output Total 190 80 30 Balance 990 -80 -30 Intake: Intake, IV Titration 1180 Amount Piperacillin-Tazobactam 3 100 .375 gm In Sodium Chloride 0.9% 100 ml @ 25 mls/hr IVPB Q8H [facility] Rx#: [id number] Sodium Chloride 0.9% 1, 1080 000 ml @ 130 mls/hr IV . Q7H42M [facility] Rx#:[id number] Output: Drainage 190 80 30 Abdomen 190 80 30 Other: Voiding Method Toilet # Voids 2 - Labs CBC & Chem 7: 10/16/21 06:29 10/14/21 06:34 Labs: Abnormal Lab Results - Last 24 Hours (Table) 10/16/21 Range/Units 06:29 RBC 3.33 L (4.10-5.20) X 10*6/uL Hgb 9.3 L (12.0-15.0) g/dL Hct 29.8 L (37.2-46.3) % MCHC 31.2 L (32.0-37.0) g/dL Plt Count 669 H (140-440) X 10*3/uL MPV 9.3 L (9.5-12.2) fL Microbiology - Last 24 Hours (Table) 10/10/21 21:30 Blood Culture - Preliminary Blood No Growth after 120 hours
[2021-10-16] MEDS ORDERED: KETOROLAC 15 MG/ML 1 ML VIAL IVP SCH (13:45)
--- NOTE | 2021-10-16 14:41 | P.PN ---
Subjective Progress Note Date: 10/16/21 Principal diagnosis: Ruptured appendicitis s/p surgery POD # 6 Patient with ruptured appendicitis and abscess postop day #5 nausea and vomiting improving diet being advanced to low residue diet on 10/15/21 tolerated diet overnight Objective - Vital Signs Vital signs: Vital Signs Temp 98.3 F 10/16/21 13:00 Pulse 75 10/16/21 13:00 Resp 18 10/16/21 13:00 BP 116/71 10/16/21 13:00 Pulse Ox 96 10/16/21 13:00 FiO2 Intake & Output 10/15/21 10/16/21 10/16/21 18:59 06:59 18:59 Intake Total 1180 Output Total 190 80 30 Balance 990 -80 -30 Intake: Intake, IV Titration 1180 Amount Piperacillin-Tazobactam 3 100 .375 gm In Sodium Chloride 0.9% 100 ml @ 25 mls/hr IVPB Q8H [facility] Rx#: [id number] Sodium Chloride 0.9% 1, 1080 000 ml @ 130 mls/hr IV . Q7H42M [facility] Rx#:[id number] Output: Drainage 190 80 30 Abdomen 190 80 30 Other: Voiding Method Toilet # Voids 2 - Constitutional General appearance: Present: no acute distress - Respiratory Respiratory: bilateral: CTA - Cardiovascular Rhythm: regular - Gastrointestinal Gastrointestinal Comment(s): surgical incision c/d/i, drain present with serous output - Integumentary Integumentary: Present: normal - Psychiatric Psychiatric: Present: appropriate affect - Labs CBC & Chem 7: 10/16/21 06:29 10/14/21 06:34 Labs: Abnormal Lab Results - Last 24 Hours (Table) 10/16/21 Range/Units 06:29 RBC 3.33 L (4.10-5.20) X 10*6/uL Hgb 9.3 L (12.0-15.0) g/dL Hct 29.8 L (37.2-46.3) % MCHC 31.2 L (32.0-37.0) g/dL Plt Count 669 H (140-440) X 10*3/uL MPV 9.3 L (9.5-12.2) fL Microbiology - Last 24 Hours (Table) 10/10/21 21:30 Blood Culture - Preliminary Blood No Growth after 120 hours Assessment and Plan (1) Ruptured appendix Narrative/Plan: Postop day #6 surgery 10/10/21, patient states her nausea vomiting has improved, she is tolerating a full liquid diet diet advanced to a low fiber diet per surgery on 10/15/21 Current Visit: Yes Status: Acute Code(s): K35.32 - ACUTE APPENDICITIS WITH PERF AND LOC PERITONITIS, W/O ABSCS SNOMED Code(s): 24981927 (2) C. difficile colitis Narrative/Plan: Patient has completed course of Vancomycin 2 weeks last 10/15/21 Current Visit: Yes Status: Acute Code(s): A04.72 - ENTEROCOLITIS D/T CLOSTRIDIUM DIFFICILE, NOT SPCF RECUR SNOMED Code(s): 483354367 (3) Diarrhea Narrative/Plan: Patient has completed a course of oral vancomycin were discontinued on 10/15/21 diarrhea has resolved Current Visit: No Status: Acute Code(s): R19.7 - DIARRHEA, UNSPECIFIED SNOMED Code(s): 12362519 (4) Leukocytosis Narrative/Plan: Ruptured appendicitis with abscess currently on Zosyn day # 7 Current Visit: Yes Status: Acute Code(s): D72.829 - ELEVATED WHITE BLOOD CELL COUNT, UNSPECIFIED SNOMED Code(s): 143979806
[2021-10-17] MEDS: ACETAMINOPHEN TAB 500 MG TAB PO SCH ×3 (00:50→13:38)
[2021-10-17] MEDS: PIPERACILLIN-TAZOBACTAM 3.375 GM in SODIUM CHLORIDE 0.9% 100 ML IVPB SCH ×2 (05:32→13:38)
[2021-10-17] MEDS: SODIUM CHLORIDE 0.9% 1,000 ML IV SCH (08:32)
[2021-10-17] MEDS: ENOXAPARIN 40 MG/0.4 ML SYRINGE SQ SCH (08:32)
[2021-10-17] MEDS: ONDANSETRON 4 MG/2 ML VIAL IVP PRN ×2 (08:48→14:27)
[2021-10-17] MEDS: traMADol 50 MG TAB PO PRN ×2 (08:48→14:26)
[2021-10-17] MEDS ORDERED: FAMOTIDINE 20 MG TAB PO SCH (09:00)
[2021-10-17 09:20] LABS: African American GFR (CKD) >90 (>60 ml/min/1.73 sqM); Anion Gap 9 mmol/L; Blood Urea Nitrogen 2 mg/dL (7-17); Carbon Dioxide 27 mmol/L (22-30); Chloride 102 mmol/L (98-107); Glucose 105 mg/dL (74-99); Non-African American GFR(CKD) >90 (>60 ml/min/1.73 sqM); Potassium 3.9 mmol/L (3.5-5.1); Sodium 138 mmol/L (137-145)
[2021-10-17 11:37] VITALS: BP 121/74; PULSE 73; RESP 16; TEMP 98.1
--- NOTE | 2021-10-17 13:46 | P.DS ---
Providers Date of admission: 10/10/21 21:06 Expected date of discharge: 10/17/21 Attending physician: Blair Stone Consults: 10/10/21 22:28 Consult Physician Routine Consulting Provider: Kecia Daniels Consult Reason/Comments: Medical management Do you want consulting provider notified?: Yes Primary care physician: Mo Smith [facility] Course: Discharge diagnosis 1. Acute appendicitis with abscess status post laparoscopic appendectomy 2. Recent C. diff colitis. Repeat c.diff is negative Hospital course This is a 41-year-old female who presented with nausea, abdominal pain and fever. She had recently been treated for C. diff colitis. Her repeat C. diff is negative. She had a computed tomography scan stress of appendicitis with possible perforation or abscess. Patient status post laparoscopic appendectomy for acute appendicitis with abscess. Patient is tolerating diet. Her pain is controlled. She is up and ambulating. She is afebrile. She is having bowel movements. She is stable for discharge. Please refer to chart for any further details. Physician Video Specialist note has been reviewed by physician. Signing provider agrees with the documented findings, assessment, and plan of care. Patient Condition at Discharge: Stable Plan - Discharge Summary Discharge Rx Participant: No New Discharge Prescriptions: New metroNIDAZOLE [Flagyl] 500 mg PO TID 7 Days #21 tab Levofloxacin [Levaquin] 500 mg PO DAILY 7 Days #7 tab Ibuprofen [Motrin] 600 mg PO Q8HR PRN #30 tab PRN Reason: Pain oxyCODONE HCL [OxyIR] 5 mg PO Q6H PRN 3 Days #12 tab PRN Reason: Pain Acetaminophen Tab [Tylenol Tab] 650 mg PO Q4H PRN #30 tablet PRN Reason: Pain Continue Albuterol Inhaler [Ventolin Hfa Inhaler] 2 puff INHALATION RT-Q4H PRN PRN Reason: Shortness Of Breath Ondansetron Odt [Zofran ODT] 4 mg PO Q8HR PRN #30 tab PRN Reason: Nausea Budesonide [Pulmicort Flexhaler] 1 puff INHALATION RT-BID Multivitamins, Thera [Multivitamin (formulary)] 1 tab PO DAILY [id number] 1 tab PO DAILY Lactobacillus Acidophilus [Florajen Acidophilus] 2 cap PO DAILY Discontinued Fluconazole [Diflucan] 150 mg PO TH Vancomycin 125 mg PO QID #35 cap Discharge Medication List Albuterol Inhaler [Ventolin Hfa Inhaler] 2 puff INHALATION RT-Q4H PRN 09/26/21 [History] Lactobacillus Acidophilus [Florajen Acidophilus] 2 cap PO DAILY 09/26/21 [History] Multivitamins, Thera [Multivitamin (formulary)] 1 tab PO DAILY 09/26/21 [History] Cxwlmy-Hc-[id number] 1 tab PO DAILY 09/26/21 [History] Ondansetron Odt [Zofran ODT] 4 mg PO Q8HR PRN #30 tab 10/05/21 [Rx] Budesonide [Pulmicort Flexhaler] 1 puff INHALATION RT-BID 10/10/21 [History] Acetaminophen Tab [Tylenol Tab] 650 mg PO Q4H PRN #30 tablet 10/17/21 [Rx] Ibuprofen [Motrin] 600 mg PO Q8HR PRN #30 tab 10/17/21 [Rx] Levofloxacin [Levaquin] 500 mg PO DAILY 7 Days #7 tab 10/17/21 [Rx] metroNIDAZOLE [Flagyl] 500 mg PO TID 7 Days #21 tab 10/17/21 [Rx] oxyCODONE HCL [OxyIR] 5 mg PO Q6H PRN 3 Days #12 tab 10/17/21 [Rx] Follow up Appointment(s)/Referral(s): Mo Encarnacion MD [Primary Care Provider] - 1-2 days Care,Winston Paulino [NON-STAFF] - 1 Week Blair Stone MD [STAFF PHYSICIAN] - 10/27/21 Activity/Diet/Wound Care/Special Instructions: No driving while taking OxyIR No lifting over 10 pounds Shower daily. No soaking or tub baths for 2 weeks Very light activity until you are reevaluated at your follow up appointment with your surgeon Okay to resume home dose of Pepcid Discharge Disposition: HOME SELF-CARE
--- NOTE | 2021-10-17 14:11 | P.PN ---
Subjective Progress Note Date: 10/17/21 Principal diagnosis: C. diff, appendicitis Patient was seen and examined. No acute events overnight. Tolerating diet well. No complaints. No more diarrhea. Objective - Vital Signs Vital signs: Vital Signs Temp 98.1 F 10/17/21 11:15 Pulse 73 10/17/21 11:15 Resp 16 10/17/21 11:15 BP 121/74 10/17/21 11:15 Pulse Ox 96 10/17/21 11:15 FiO2 Intake & Output 10/16/21 10/17/21 10/17/21 18:59 06:59 18:59 Intake Total 1000 Output Total 30 75 40 Balance 970 -75 -40 Intake: Intake, IV Titration 1000 Amount Piperacillin-Tazobactam 3 100 .375 gm In Sodium Chloride 0.9% 100 ml @ 25 mls/hr IVPB Q8H [facility] Rx#: [id number] Sodium Chloride 0.9% 1, 900 000 ml @ 130 mls/hr IV . Q7H42M [facility] Rx#:[id number] Output: Drainage 30 75 40 Abdomen 30 75 40 Other: Voiding Method Toilet # Voids 3 - Exam General: [non toxic], [no distress], [appears at stated age] Derm: [warm], [dry] Head: [atraumatic], [normocephalic], [symmetric] Eyes: [EOMI], [no lid lag], [anicteric sclera] Mouth: [no lip lesion], [mucus membranes moist] Cardiovascular: [S1S2 reg], [no murmur] Lungs: [CTA bilateral], [no rhonchi, no rales] , [no accessory muscle use] Abdominal: [soft], [JOHANNA drain intact with serosanguineous discharge], [no guarding], [no appreciable organomegaly], [incision site without erythema or discharge] Ext: [no gross muscle atrophy], [no edema], [no contractures] Psych: [Alert], [oriented], [appropriate affect] - Labs CBC & Chem 7: 10/16/21 06:29 10/17/21 08:25 Labs: Abnormal Lab Results - Last 24 Hours (Table) 10/17/21 Range/Units 08:25 BUN 2 L (7-17) mg/dL Glucose 105 H (74-99) mg/dL Microbiology - Last 24 Hours (Table) 10/10/21 18:52 Stool Culture - Final Stool 10/10/21 21:30 Blood Culture - Final Blood No Growth after 144 hours Assessment and Plan Assessment: Acute appendicitis with perforation and early abscess formation Intractable nausea and vomiting Status post appendectomy Pain control per surgery - Tylenol, Morphine and Tramadol Tolerating low fiber diet well. IV fluids Zofran, Scopolamine patch for nausea or vomiting Zosyn for antibiotic coverage Acute blood loss anemia Expected result of surgery Continue to monitor Recent C. diff colitis Completed 2 weeks of Vancomycin. Chronic intermittent asthma Stable not in acute exacerbation Resolved: Hypokalemia DVT prophylaxis Lovenox Patient medically cleared for discharge.
== END 2021-10-17 16:07 | disposition home or self-care (01) | DRG 339 ==
LOC: EC 16:14 → 5NMEDONC 21:06
PROVIDERS: ADMIT Surgery; ATTEND Surgery
PROC: 0DTJ4ZZ Resection of Appendix, Percutaneous Endoscopic Approach (ICD-10-PCS; principal; 2021-10-10 21:30)
DX: K35.33 Acute appendicitis with perforation, localized peritonitis, and gangrene, with abscess (principal); A04.71 Enterocolitis due to Clostridium difficile, recurrent; D62 Acute posthemorrhagic anemia; J45.20 Mild intermittent asthma, uncomplicated; E88.01 Alpha-1-antitrypsin deficiency; K38.1 Appendicular concretions; K20.90 Esophagitis, unspecified without bleeding; E86.0 Dehydration; E87.6 Hypokalemia; Z86.19 Personal history of other infectious and parasitic diseases; Z79.899 Other long term (current) drug therapy; Z79.51 Long term (current) use of inhaled steroids; Z80.42 Family history of malignant neoplasm of prostate; Z80.51 Family history of malignant neoplasm of kidney
CPT/HCPCS: 36415; 74177; 80048; 80053; 81001; 81025; 82272; 83605; 83690; 83735; 85025; 85027; 87040; 87045; 87046; 87324; 88300; 88304; 96361; 96374; 96375; 99285

== ENCOUNTER → 2022-01-26 | Outpatient (CLI) | payer BC ==
--- NOTE | 2022-01-27 07:39 | MM ---
Reason for Exam: Screening (asymptomatic). Last mammogram was performed 3 year(s) and 5 month(s) ago. Patient History: Menarche at age 12. Patient has no children. Premenopausal. Currently using Hormonal Contraceptives, beginning at age 17 for 21 years. Last menstrual period: 01/24/2022 Risk Values: Sanjuanita 5 year model risk: 0.6%. NCI Lifetime model risk: 12.2%. Prior Study Comparison: 08/02/2018 Bilateral Screening Mammogram, [facility]. Tissue Density: The breast tissue is extremely dense which could obscure a lesion on mammography. Findings: Analyzed By CAD. There is no suspicious group of microcalcifications or new suspicious mass in either breast. Overall Assessment: Negative, BI-RAD 1 Management: Screening Mammogram of both breasts in 1 year. A clinical breast exam by your physician is recommended on an annual basis and results should be correlated with mammographic findings. Electronically signed and approved by: Tarik Jama M.D. Radiologis
== END | disposition home or self-care (01) ==
LOC: RADMAMWWP 07:03
PROVIDERS: ATTEND Obstetrics & Gynecology
DX: Z12.31 Encounter for screening mammogram for malignant neoplasm of breast (principal)
CPT/HCPCS: 77063; 77067

== ENCOUNTER → 2023-02-07 | Outpatient (CLI) | payer BC ==
--- NOTE | 2023-02-07 08:06 | MM ---
Reason for Exam: Screening (asymptomatic). Last mammogram was performed 1 year(s) and 1 month(s) ago. Patient History: Menarche at age 12. Patient has no children. Premenopausal. Currently using Hormonal Contraceptives, beginning at age 17 for 21 years. Last menstrual period: 01/21/2023 Risk Values: Sanjuanita 5 year model risk: 0.7%. NCI Lifetime model risk: 12.1%. Prior Study Comparison: 08/02/2018 Bilateral Screening Mammogram, [facility]. 01/26/2022 Bilateral MG 3D screening mammo w/cad, [facility]. Tissue Density: The breast tissue is heterogeneously dense. This may lower the sensitivity of mammography. Findings: Analyzed By CAD. There is no suspicious group of microcalcifications within either breast. No architectural distortion. No new suspicious mass within the right breast. Asymmetry demonstrated within the left breast only on CC view medially at posterior depth. Overall Assessment: Incomplete: need additional imaging evaluation, BI-RAD 0 Management: Diagnostic Mammogram of the left breast. A clinical breast exam by your physician is recommended on an annual basis and results should be correlated with mammographic findings. [facility] will attempt to contact patient to return for supplemental views and ultrasound if indicated. Note on Sanjuanita scores and lifetime risk: 1. A Sanjuanita score greater than 3% is considered moderate risk. If this is the case, consider specialist referral to assess eligibility for a risk reducing agent. If overall lifetime risk for the development of breast cancer is 20% or higher, the patient may qualify for future screening with alternating mammogram and breast MRI. Electronically signed and approved by: Kareem Adrian D.O.
== END | disposition home or self-care (01) ==
LOC: RADMAMWWP 07:00
PROVIDERS: ATTEND Obstetrics & Gynecology
DX: Z12.31 Encounter for screening mammogram for malignant neoplasm of breast (principal)
CPT/HCPCS: 77063; 77067

== ENCOUNTER → 2023-02-07 | Outpatient (CLI) | payer BC ==
[2023-02-07 17:08] LABS: Basophils # (A) 0.06 X 10*3/uL (0.00-0.10); Basophils % (A) 0.7 %; Eosinophils # (A) 0.08 X 10*3/uL (0.04-0.35); Eosinophils % (A) 0.9 %; HCT 38.2 % (37.2-46.3); HGB 12.2 g/dL (12.0-15.0); Lymphocytes % (A) 20.4 %; MCH 29.4 pg (27.0-32.0); MCHC 31.9 g/dL (32.0-37.0); Mean Platelet Volume 10.2 FL (9.5-12.2); Monocytes # (A) 0.55 X 10*3/uL (0.20-1.00); Monocytes % (A) 6.2 %; NRBC Per 100 WBC 0 X 10*3/uL (0.00-0.01); Neutrophils # (A) 6.31 X 10*3/uL (1.80-7.70); Neutrophils % (A) 71.5 %; Platelet Count 467 X 10*3/uL (140-440); RBC 4.15 X 10*6/uL (4.10-5.20); RDW 13.1 % (11.5-14.5); WBC 8.83 X 10*3/uL (4.50-10.00)
[2023-02-07 17:24] LABS: % Iron Saturation 12.42 (12.00-45.00); ALT 50 U/L (8-44); AST 24 U/L (13-35); Albumin 4.7 g/dL (3.8-4.9); Albumin/Globulin Ratio 1.62 Ratio (1.60-3.17); Alkaline Phosphatase 109 U/L (41-126); BUN/Creat Ratio 12.29 Ratio (12.00-20.00); Blood Urea Nitrogen 8.6 mg/dL (9.0-27.0); Calcium 9.5 mg/dL (8.7-10.3); Carbon Dioxide 22.9 mmol/L (21.6-31.8); Chloride 98 mmol/L (96-109); Chol/HDL Ratio 4.73 Ratio; Ferritin 91.8 ng/mL (10.0-291.0); Globulin 2.9 g/dL (1.6-3.3); Glucose 84 mg/dL (70-110); Iron 60 UG/DL (50-170); Magnesium 2.1 mg/dL (1.5-2.4); Potassium 4.1 mmol/L (3.5-5.5); Sodium 136 mmol/L (135-145); T4, Free (Free Thyroxine) 1.07 ng/dL (0.80-1.80); Total Bilirubin 0.3 mg/dL (0.3-1.2); Total Iron Binding Capacity 483 UG/DL (228-460); Total Protein 7.6 g/dL (6.2-8.2)
== END | disposition home or self-care (01) ==
LOC: LABWHC1 07:25
PROVIDERS: ATTEND Family Medicine
DX: Z00.00 Encounter for general adult medical examination without abnormal findings (principal); Z13.1 Encounter for screening for diabetes mellitus; R53.83 Other fatigue
CPT/HCPCS: 36415; 80053; 80061; 82607; 82728; 82746; 83036; 83540; 83550; 83735; 84439; 84443; 85025

== ENCOUNTER → 2023-02-13 | Outpatient (CLI) | payer BC ==
--- NOTE | 2023-02-13 09:22 | MM ---
Reason for Exam: Additional evaluation requested from abnormal screening. Last screening mammogram was performed less than 1 month ago. Patient History: Menarche at age 12. Patient has no children. Premenopausal. Currently using Hormonal Contraceptives, beginning at age 17 for 21 years. Risk Values: Sanjuanita 5 year model risk: 0.7%. NCI Lifetime model risk: 12.1%. Prior Study Comparison: 08/02/2018 Bilateral Screening Mammogram, [facility]. 01/26/2022 Bilateral MG 3D screening mammo w/cad, [facility]. 02/07/2023 Bilateral MG 3D screening mammo w/cad, [facility]. Tissue Density: Left: The breast tissue is heterogeneously dense. This may lower the sensitivity of mammography. Findings: Analyzed By CAD. Asymmetry does not persist with compression. No new suspicious masses or worrisome group of calcifications. Overall Assessment: Negative, BI-RAD 1 Management: Screening Mammogram of both breasts in 1 year. A clinical breast exam by your physician is recommended on an annual basis and results should be correlated with mammographic findings. This exam should not preclude additional follow-up of suspicious palpable abnormalities. Results were given to the patient verbally at the time of exam. Note on Sanjuanita scores and lifetime risk: 1. A Sanjuanita score greater than 3% is considered moderate risk. If this is the case, consider specialist referral to assess eligibility for a risk reducing agent. If overall lifetime risk for the development of breast cancer is 20% or higher, the patient may qualify for future screening with alternating mammogram and breast MRI. Electronically signed and approved by: Kareem Adrian D.O.
== END | disposition home or self-care (01) ==
LOC: RADMAMWWP 08:55
PROVIDERS: ATTEND Obstetrics & Gynecology
DX: R92.332 Mammographic heterogeneous density, left breast (principal)
CPT/HCPCS: 77061; 77065

== ENCOUNTER → 2023-08-30 | Outpatient (CLI) | payer BC ==
--- NOTE | 2023-08-30 22:43 | XR ---
EXAMINATION TYPE: XR abdomen 2V DATE OF EXAM: 08/30/2023 COMPARISON: 09/25/2021 INDICATION: Abdomen pain TECHNIQUE: Single view abdomen upright and supine views. FINDINGS: There is a normal bowel gas pattern. No free air is evident. No differential air-fluid levels are pre sent. Psoas margins are normal. No organomegaly is present. Spina bifida occulta of S1 is present. IUD is present. IMPRESSION: 1. Unremarkable abdomen.
== END | disposition home or self-care (01) ==
LOC: RADXRMAIN 15:45
PROVIDERS: ATTEND Internal Medicine Gastroenterology
DX: R10.9 Unspecified abdominal pain (principal)
CPT/HCPCS: 74019

== ENCOUNTER 2023-09-11 13:44 | Emergency (ER) | payer BC ==
[2023-09-11 13:52] VITALS: RESP 18
[2023-09-11] MEDS: ONDANSETRON ODT 4 MG TAB PO STA (14:17)
[2023-09-11] MEDS: IBUPROFEN 600 MG TAB PO STA (14:29)
[2023-09-11] MEDS: ACETAMINOPHEN TAB 500 MG TAB PO STA (14:30)
--- NOTE | 2023-09-11 14:30 | ED ---
General Adult HPI - General Chief complaint: Upper Respiratory Infection Stated complaint: Fever, throat pain, ear pain, COVID+ at home test Time Seen by Provider: 09/11/23 13:55 Source: patient, RN notes reviewed, old records reviewed Mode of arrival: ambulatory Limitations: no limitations - History of Present Illness Initial comments: 43-year-old female presents to the emergency department stating that she has had a sore throat a little right ear pain and feeling warm. Patient states she took a COVID test at home and she was positive. Patient states she went to the urgent care and they told her to come to the emergency department. Patient denies any difficulty breathing shortness of breath or patient has any chest pain. Patient has abdominal pain patient states she is nauseous but has not vomited. - Related Data Home Medications Medication Instructions Recorded Confirmed Albuterol Inhaler [Ventolin Hfa 2 puff INHALATION RT-Q4H PRN 09/26/21 10/10/21 Inhaler] Lactobacillus Acidophilus 2 cap PO DAILY 09/26/21 10/10/21 [Florajen Acidophilus] Multivitamins, Thera [Multivitamin 1 tab PO DAILY 09/26/21 10/10/21 (formulary)] Zpktyk-Kb-Je 1 tab PO DAILY 09/26/21 10/10/21 Budesonide [Pulmicort Flexhaler] 1 puff INHALATION RT-BID 10/10/21 10/10/21 Previous Rx's Medication Instructions Recorded Ondansetron Odt [Zofran ODT] 4 mg PO Q8HR PRN #30 tab 10/05/21 Acetaminophen Tab [Tylenol Tab] 650 mg PO Q4H PRN #30 tablet 10/17/21 Ibuprofen [Motrin] 600 mg PO Q8HR PRN #30 tab 10/17/21 Levofloxacin [Levaquin] 500 mg PO DAILY 7 Days #7 tab 10/17/21 metroNIDAZOLE [Flagyl] 500 mg PO TID 7 Days #21 tab 10/17/21 oxyCODONE HCL [OxyIR] 5 mg PO Q6H PRN 3 Days #12 tab 10/17/21 Allergies Allergy/AdvReac Type Severity Reaction Status Date / Time No Known Allergies Allergy Verified 10/10/21 20:38 Review of Systems ROS Statement: Those systems with pertinent positive or pertinent negative responses have been documented in the HPI. ROS Other: All systems not noted in ROS Statement are negative. Past Medical History Past Medical History: Asthma Additional Past Medical History / Comment(s): problems with diarrhea, Alpha-1 antitrypsin deficiency, sepsis and cdiff September 2021 History of Any Multi-Drug Resistant Organisms: None Reported, C-DIFF Date of last positivie culture/infection: 09/26/2021 MDRO Source:: Cdiff Past Surgical History: Appendectomy Additional Past Surgical History / Comment(s): Lasik, wisdom teeth Past Anesthesia/Blood Transfusion Reactions: No Reported Reaction Past Psychological History: No Psychological Hx Reported Smoking Status: Never smoker Past Alcohol Use History: None Reported Past Drug Use History: None Reported - Past Family History Mother Family Medical History: No Reported History Father Family Medical History: Cancer Additional Family Medical History / Comment(s): Kidney, Prostate General Exam - General Exam Comments Initial Comments: GENERAL: Patient is well-developed and well-nourished. Patient is nontoxic and well- hydrated and is in mild distress. ENT: Neck is soft and supple. No significant lymphadenopathy is noted. Oropharynx is clear. Moist mucous membranes. Neck has full range of motion without eliciting any pain. EYES: The sclera were anicteric and conjunctiva were pink and moist. Extraocular movements were intact and pupils were equal round and reactive to light. Eyelids were unremarkable. PULMONARY: Unlabored respirations. Good breath sounds bilaterally. No audible rales rhonchi or wheezing was noted. CARDIOVASCULAR: There is a regular rate and rhythm without any murmurs gallops or rubs. ABDOMEN: Soft and nontender with normal bowel sounds. SKIN: Skin is clear with no lesions or rashes and otherwise unremarkable. NEUROLOGIC: Patient is alert and oriented x3. Cranial nerves II through XII are grossly intact. MUSCULOSKELETAL: Normal extremities with adequate strength and full range of motion. LYMPHATICS: No significant lymphadenopathy is noted PSYCHIATRIC: Normal psychiatric evaluation. Limitations: no limitations Course Vital Signs 09/11/23 13:47 Temperature 99.6 F Pulse Rate 119 H Respiratory 18 Rate Blood Pressure 118/70 O2 Sat by Pulse 99 Oximetry Medical Decision Making - Medical Decision Making Was pt. sent in by a medical professional or institution (, PA, TRANSPORTATION ATTENDANT, urgent c are, hospital, or usp...) When possible be specific @ -No Did you speak to anyone other than the patient for history (EMS, parent, family, police, friend...)? What history was obtained from this source @ -No Did you review nursing and triage notes (agree or disagree)? Why? @ -I reviewed and agree with nursing and triage notes Were old charts reviewed (outside hosp., previous admission, EMS record, old EKG, old radiological studies, urgent care reports/EKG's, usp records)? Report findings @ -No old charts were reviewed Differential Diagnosis (chest pain, altered mental status, abdominal pain women, abdominal pain men, vaginal bleeding, weakness, fever, dyspnea, syncope, headache, dizziness, GI bleed, back pain, seizure, CVA, palpatations, mental health, musculoskeletal)? @ -COVID, influenza A, influenza B, RSV, upper respiratory infection, otitis media, strep throat, this is not an all-inclusive EKG interpreted by me (3pts min.). @ -As above X-rays interpreted by me (1pt min.). @ -None done CT interpreted by me (1pt min.). @ -None done U/S interpreted by me (1pt. min.). @ -None done What testing was considered but not performed or refused? (CT, X-rays, U/S, lab s)? Why? @ -None What meds were considered but not given or refused? Why? @ -None Did you discuss the management of the patient with other professionals (professionals i.e. , PA, TRANSPORTATION ATTENDANT, lab, RT, psych nurse, social worker palliative care, booster operator, teacher, sales and service officer, high risk case manager)? Give summary @ -No Was smoking cessation discussed for >3mins.? @ -No Was critical care preformed (if so, how long)? @ -No Were there social determinants of health that impacted care today? How? (Homelessness, low income, unemployed, alcoholism, drug addiction, transportation, low edu. Level, literacy, decrease access to med. care, [facility], rehab)? @ -No Was there de-escalation of care discussed even if they declined (Discuss DNR or withdrawal of care, Hospice)? DNR status @ -No What co-morbidities impacted this encounter? (DM, HTN, Smoking, COPD, CAD, Cancer, CVA, ARF, Chemo, Hep., AIDS, mental health diagnosis, sleep apnea, morbid obesity)? @ -None Was patient admitted / discharged? Hospital course, mention meds given and route, prescriptions, significant lab abnormalities, going to OR and other pertinent info. @ -Patient was nauseous so I gave her Zofran. Patient had a fever of 101.5 and I gave her Motrin and Tylenol. Undiagnosed new problem with uncertain prognosis? @ -No Drug Therapy requiring intensive monitoring for toxicity (Heparin, Nitro, Insulin, Cardizem)? @ -No Were any procedures done? @ -No Diagnosis/symptom? @ -COVID Acute, or Chronic, or Acute on Chronic? @ -Acute Uncomplicated (without systemic symptoms) or Complicated (systemic symptoms)? @ -Complicated Side effects of treatment? @ -No Exacerbation, Progression, or Severe Exacerbation? @ -No Poses a threat to life or bodily function? How? (Chest pain, [place], [place], pneumonia, PE, COPD, DKA, ARF, appy, cholecystitis, CVA, Diverticulitis, Homicidal, Suicidal, threat to staff... and all critical care pts) @ -No Disposition Clinical Impression: COVID Disposition: HOME SELF-CARE Condition: Good Instructions (If sedation given, give patient instructions): COVID-19 (Coronavirus Disease 2019) (ED) Additional Instructions: Patient should take Motrin and Tylenol as needed for pain patient states Zofran as needed for nausea Is patient prescribed a controlled substance at d/c from ED?: No Referrals: Naida Gibson NPC [REFERRING] - 1-2 days Time of Disposition: 14:32
[2023-09-11] MEDS: ONDANSETRON 4 MG ODT STARTER PACK 2 TAB BTL PO STA (15:01)
[2023-09-11 15:04] VITALS: BP 114/74; PULSE 107; TEMP 98.9
== END 2023-09-11 15:04 | disposition home or self-care (01) ==
LOC: EC 13:44
DX: U07.1 COVID-19 (principal)
CPT/HCPCS: 87636; 99283; S0119

== ENCOUNTER → 2024-02-20 | Outpatient (CLI) | payer BC ==
--- NOTE | 2024-02-20 09:49 | MM ---
Reason for Exam: Screening (asymptomatic). Last screening mammogram was performed 12 month(s) ago. Patient History: Menarche at age 12. Patient has no children. Premenopausal. Currently using Hormonal Contraceptives, beginning at age 17 for 21 years. Last menstrual period: 02/15/2024 Risk Values: Sanjuanita 5 year model risk: 0.7%. NCI Lifetime model risk: 12.0%. Prior Study Comparison: 01/26/2022 Bilateral MG 3D screening mammo w/cad, [facility]. 02/07/2023 Bilateral MG 3D screening mammo w/cad, [facility]. 02/13/2023 Left MG 3D work up w/cad LT, [facility]. Tissue Density: The breasts are heterogeneously dense, which may obscure small masses. Findings: Analyzed By CAD. There is no suspicious group of microcalcifications or new suspicious mass in either breast. Overall Assessment: Negative, BI-RAD 1 Management: Screening Mammogram of both breasts in 1 year. . Patient should continue monthly self-breast exams. A clinical breast exam by your physician is recommended on an annual basis. This exam should not preclude additional follow-up of suspicious palpable abnormalities. Note on Sanjuanita scores and lifetime risk: 1. A Sanjuanita score greater than 3% is considered moderate risk. If this is the case, consider specialist referral to assess eligibility for a risk reducing agent. 2. If overall lifetime risk for the development of breast cancer is 20% or higher, the patient may qualify for future screening with alternating mammogram and breast MRI. [facility], , 02/20/2024 9:46 AM. Electronically signed and approved by: Tarik Jama M.D. Radiolog[facility]
== END | disposition home or self-care (01) ==
LOC: RADMAMWWP 07:03
PROVIDERS: ATTEND Obstetrics & Gynecology
DX: Z12.31 Encounter for screening mammogram for malignant neoplasm of breast (principal); R92.333 Mammographic heterogeneous density, bilateral breasts
CPT/HCPCS: 77063; 77067

== ENCOUNTER → 2024-08-07 | Outpatient (CLI) | payer BC ==
[2024-08-07 14:48] LABS: Basophils # (A) 0.06 X 10*3/uL (0.00-0.10); Basophils % (A) 0.7 %; Eosinophils % (A) 1.1 %; HCT 39.1 % (37.2-46.3); HGB 12.5 g/dL (12.0-15.0); Lymphocytes # (A) 2.07 X 10*3/uL (0.90-5.00); Lymphocytes % (A) 22.7 %; MCH 29.1 pg (27.0-32.0); MCV 91.1 FL (80.0-97.0); Mean Platelet Volume 9.6 FL (9.5-12.2); Monocytes % (A) 6.6 %; NRBC Per 100 WBC 0 X 10*3/uL (0.00-0.01); Neutrophils # (A) 6.24 X 10*3/uL (1.80-7.70); Neutrophils % (A) 68.2 %; Platelet Count 365 X 10*3/uL (140-440); RBC 4.29 X 10*6/uL (4.10-5.20); RDW 12.7 % (11.5-14.5); WBC 9.13 X 10*3/uL (4.50-10.00)
[2024-08-07 16:41] LABS: Erythrocyte Sedimentation Rate 7 mm/Hr (0-20)
[2024-08-07 16:43] LABS: C Reactive Protein <0.30 mg/dL (0.00-0.80); LDL Cholesterol,Calculated 130.7 mg/dL (0.0-131.0)
[2024-08-07 16:44] LABS: % Iron Saturation 11.44 (12.00-45.00); ALT 68 U/L (8-44); AST 37 U/L (13-35); Albumin 4.6 g/dL (3.8-4.9); Alkaline Phosphatase 95 U/L (41-126); BUN/Creat Ratio 13.88 Ratio (12.00-20.00); Blood Urea Nitrogen 11.1 mg/dL (9.0-27.0); Calcium 9.7 mg/dL (8.7-10.3); Carbon Dioxide 22.2 mmol/L (21.6-31.8); Chloride 99 mmol/L (96-109); Globulin 2.7 g/dL (1.6-3.3); Glucose 98 mg/dL (70-110); Iron 46 UG/DL (50-170); Potassium 4.3 mmol/L (3.5-5.5); Sodium 136 mmol/L (135-145); T4, Free (Free Thyroxine) 0.95 ng/dL (0.80-1.80); Total Bilirubin 0.3 mg/dL (0.3-1.2); Total Iron Binding Capacity 402 UG/DL (228-460); Total Protein 7.3 g/dL (6.2-8.2)
[2024-08-08 14:53] LABS: APTT 40 Sec(s) (<43); Dilute Russell Viper Venom 30 Sec(s) (<44)
[2024-08-08 19:06] LABS: ANA Pattern Speckled
== END | disposition home or self-care (01) ==
LOC: LABWHC1 08:14
PROVIDERS: ATTEND Family Medicine
DX: Z00.00 Encounter for general adult medical examination without abnormal findings (principal); Z13.1 Encounter for screening for diabetes mellitus; H04.123 Dry eye syndrome of bilateral lacrimal glands; K58.9 Irritable bowel syndrome, unspecified; D50.9 Iron deficiency anemia, unspecified; R21 Rash and other nonspecific skin eruption
CPT/HCPCS: 36415; 80053; 80061; 82607; 82728; 82746; 83036; 83540; 83550; 84439; 84443; 85025; 85613; 85652; 85730; 86038; 86039; 86140; 86235